=== PATIENT | female | born 1965 | race Caucasian/White ===

== ENCOUNTER 2017-08-05 09:33 | Emergency (ER) | payer OTHER ==
--- NOTE | 2017-08-05 11:51 | UC ---
Throat Pain/Nasal Bola HPI - HPI Summary HPI Summary: PT IS C/O A 2 WEEK HX SINUS CONGESTION AND EAR DRAINAGE. SHE STATES SIMILAR PROBLEM IN PAST AND HAS SEEN DR VELARDE. DENIES FEVER AND SORE THROAT. - History of Current Complaint Stated Complaint: BILATERAL EAR PAIN/SINUS Time Seen by Provider: 08/05/17 11:36 Hx Obtained From: Patient ?: No Onset/Duration: Gradual Onset, Still Present Severity: Moderate Associated Signs & Symptoms: Negative: Sinus Discomfort, Nasal Discharge, Fever - Epiglottits Risk Factors Epiglottis Risk Factors: Negative PMH/Surg Hx/FS Hx/Imm Hx - Additional Past Medical History Additional PMH: L ELBOW FX, SINUS/EAR INFECTIONS - Surgical History Surgical History: Yes - L ELBOW FX - Family History Known Family History: Positive: Cardiac Disease, Hypertension, Diabetes - Social History Occupation: Employed Full-time Lives: With Family Alcohol Use: Rare Substance Use Type: None Smoking Status (MU): Never Smoked Tobacco - Immunization History Vaccination Up to Date: Yes Review of Systems Constitutional: Negative Skin: Negative Eyes: Negative ENT: Ear Ache, Nasal Discharge, Sinus Congestion, Sinus Pain/Tenderness Respiratory: Negative Cardiovascular: Negative Gastrointestinal: Negative Genitourinary: Negative Motor: Negative Neurovascular: Negative Musculoskeletal: Negative Neurological: Negative Psychological: Negative Is Patient Immunocompromised?: No All Other Systems Reviewed And Are Negative: Yes Physical Exam Triage Information Reviewed: Yes Appearance: Well-Appearing Vital Signs Reviewed: Yes Eyes: Positive: Conjunctiva Clear ENT: Positive: Pharynx normal, Nasal congestion, Nasal drainage - YELLOW, TMs normal, Sinus tenderness, Other - R EAR CANAL WITH MILD ERYTHEMA AND CLEAR DRY DISCHARGE Neck: Positive: Supple, Nontender, No Lymphadenopathy Respiratory: Positive: Chest non-tender, Lungs clear, Normal breath sounds Cardiovascular: Positive: RRR, No Murmur, Pulses Normal Abdomen Description: Positive: Nontender, No Organomegaly Bowel Sounds: Positive: Present Musculoskeletal: Positive: ROM Intact Neurological: Positive: Alert Psychological: Positive: Age Appropriate Behavior Skin Exam: Normal Throat Pain/Nasal Course/Dx - Course Course Of Treatment: EXAM C/W SINUSITIS AND R OE. WITH TX PO AND TOPICAL ANTIBIOTIS. SINCE PT OF DR VELARDE FOR SAME IN PAST, WILL REFER BACK TO HIM PER PT REQUEST. - Differential Dx/Diagnosis Provider Diagnoses: R OE, SINUSITIS Discharge - Discharge Plan Condition: Stable Disposition: HOME Prescriptions: Amoxicillin/Clavulanate TAB* [Augmentin TAB 875*] 875 mg PO BID 7 Days #20 tab Neomyc/Polym/HC 1% OTIC SUSP* [Cortisporin Otic Susp 1%*] 4 drop RIGHT EAR TID 7 Days #1 btl Referrals: JASIEL Magaña [Primary Care Provider] - If Needed Dane Velarde MD [Medical Doctor] - 7 Days
[2017-08-05 11:59] VITALS: BP 119/91
== END 2017-08-05 12:10 | disposition home or self-care (01) ==
LOC: UCCORT 09:33
DX: H60.91 Unspecified otitis externa, right ear (principal); J32.9 Chronic sinusitis, unspecified
CPT/HCPCS: 99202; G0463

== ENCOUNTER 2018-03-18 20:59 | Emergency (ER) | payer OTHER ==
[2018-03-18 21:15] VITALS: BP 123/75
--- NOTE | 2018-03-18 21:48 | UC ---
Laceration HPI - HPI Summary HPI Summary: cut right middle finger on piece of glass, 1 cm lac. UTD on tetanus - History Of Current Complaint Chief Complaint: UCLaceration Stated Complaint: RIGHT HAND MIDDLE FINGER LAC Hx Obtained From: Patient Hx Last Menstrual Period: yrs Laceration Location: Finger Mechanism Of Injury: Sharp Trauma Onset/Duration: Sudden Onset Severity: Mild Pain Intensity: 0 Aggravating Factors: Nothing - Allergies/Home Medications Allergies/Adverse Reactions: Allergies Allergy/AdvReac Type Severity Reaction Status Date / Time No Known Allergies Allergy Verified 03/18/18 21:15 Home Medications: Home Medications L.acidoph,Paracasei, B.lactis [Probiotic] 1 each PO DAILY 03/18/18 [History Confirmed 03/18/18] Multivitamin [Multivitamins] 1 cap PO DAILY 03/18/18 [History Confirmed 03/18/18 ] PMH/Surg Hx/FS Hx/Imm Hx Previously Healthy: Yes - Surgical History Surgical History: Yes Surgery Procedure, Year, and Place: L hip/ L elbow - Family History Known Family History: Positive: Cardiac Disease, Hypertension, Diabetes - Social History Alcohol Use: Rare Substance Use Type: None Smoking Status (MU): Never Smoked Tobacco - Immunization History Most Recent Tetanus Shot: 02/2018 Vaccination Up to Date: Yes Review of Systems Constitutional: Negative Skin: Rash - allergic reaction, Other - wound Eyes: Negative ENT: Negative Respiratory: Negative Cardiovascular: Negative Gastrointestinal: Negative Genitourinary: Negative Motor: Negative Neurovascular: Negative Musculoskeletal: Negative Neurological: Negative Psychological: Negative Is Patient Immunocompromised?: No All Other Systems Reviewed And Are Negative: Yes Physical Exam Triage Information Reviewed: Yes Appearance: Well-Nourished, Ill-Appearing, Pain Distress Vital Signs: Initial Vital Signs Temp 97.4 F 03/18/18 21:10 Pulse 90 03/18/18 21:10 Resp 17 03/18/18 21:10 BP 123/75 03/18/18 21:10 Pulse Ox 98 03/18/18 21:10 Vital Signs Reviewed: Yes Eye Exam: Normal ENT Exam: Normal Dental Exam: Normal Neck exam: Normal Neck: Positive: Supple, Nontender, No Lymphadenopathy Respiratory Exam: Normal Respiratory: Positive: Chest non-tender, Lungs clear, Normal breath sounds Cardiovascular Exam: Normal Cardiovascular: Positive: RRR, No Murmur, Pulses Normal Musculoskeletal Exam: Normal Neurological Exam: Normal Neurological: Positive: Alert Psychological Exam: Normal Skin: Positive: rashes - being treated for an allergic reaction o nher face 1 cm simple laceration to right mid finger Laceration Repair - Laceration Repair 1 Description: Linear Laceration Size After Repair: Length (cm) - 1 Modified For Repair: No Cleansing Completed Via Routine Prep: Yes Irrigation With Pressure Irrigation Device: No Closure Material: Sutures Closure Method: Single Layer Laceration Course/Dx - Course/Dx Course Of Treatment: hx obtained, exam performed, meds reviewed, repair of laceration performed, - Differential Dx - Laceration/Wound Differental Diagnoses: Laceration Provider Diagnoses: 1 cm simple laceration of right middle finger Discharge - Sign-Out/Discharge Documenting (check all that apply): Patient Departure All imaging exams completed and their final reports reviewed: No Studies - Discharge Plan Condition: Stable Disposition: HOME Patient Education Materials: Laceration (ED), Care For Your Stitches (DC) Referrals: JASIEL Magaña [Primary Care Provider] - Additional Instructions: 1. Keep finger clean and dry. 2. Watch for signs of infection, redness, swelling, pain drainage from wound, follow up if these present 3. Remove the stitches in 7-10 days. - Billing Disposition and Condition Condition: STABLE Disposition: Home
== END 2018-03-18 21:48 | disposition home or self-care (01) ==
LOC: UCCORT 20:59
DX: S61.212A Laceration without foreign body of right middle finger without damage to nail, initial encounter (principal); W25.XXXA Contact with sharp glass, initial encounter; Y92.9 Unspecified place or not applicable
CPT/HCPCS: 12001; 99201; G0463

== ENCOUNTER 2018-03-27 11:36 | Inpatient (IN) | payer OTHER ==
[2018-03-27] MEDS ORDERED: Ondansetron INJ* 2 MG/ML VIAL ONE (15:05)
[2018-03-27] MEDS ORDERED: Albuterol 2.5 MG/3 ML NEB.SOL* (0.083%) INH PRN (15:08)
[2018-03-27] MEDS ORDERED: Al Hydrox/Mg Hydrox/Simet LIQ* 30 ML UDC PO PRN (15:08)
[2018-03-27] MEDS ORDERED: oxyCODONE/Acetamin 5/325 MG* TAB PO PRN (15:08)
--- NOTE | 2018-03-27 16:32 | RAD ---
INDICATION: Palpitations. Single frontal view of the chest performed at 1525 hours was reviewed. No prior study is available for comparison. No mediastinal shift is noted. Heart is of normal size and configuration. Lung rivera appear clear. IMPRESSION: NO ACTIVE CARDIOPULMONARY DISEASE IS NOTED.
[2018-03-27] MEDS ORDERED: PROCHLORPERAZINE INJ 5 MG/ML 2 ML VIAL IV ONE (17:22)
--- NOTE | 2018-03-27 22:14 | CONS ---
CONSULTATION REPORT: DATE OF CONSULT: 03/27/18 ATTENDING ORTHOPEDIC PROVIDER: Dr. Wili Stinson. CHIEF COMPLAINT: Left distal femur fracture. HISTORY OF PRESENT ILLNESS: The patient is a 52-year-old female, who presented to [facility] yesterday, 03/26/18, after sustaining a fall at home. She has no past medical history to speak of. She takes no home medication. She states that she was mopping her home around 10:30 p.m. when she slipped on the floor, who subsequently fell onto her left leg twisting underneath of her. She immediately had severe pain and was unable to ambulate. She did not suffer any other injury. She had no chest pain, shortness of breath, dizziness, loss of consciousness with her fall. She was brought into [facility] where she was diagnosed with a left distal femur fracture. She was transferred to [facility] today, 03/27/18, for anticipated surgical fixation with Dr. Wili Stinson tomorrow. She has no history of heart attack, stroke, blood clot, HIV, hepatitis. She has had general anesthesia before, which she has tolerated well. PAST MEDICAL HISTORY: None. PAST SURGICAL HISTORY: Left elbow surgery after fracture, sounds like ORIF. MEDICATIONS: No prescription medications, but does take vitamins, which she will be providing a list of to our hospitalist service. ALLERGIES: No known drug allergies. 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 She drinks 1 to 2 glasses of wine per day. She does not smoke cigarettes. She does not use drugs. REVIEW OF SYSTEMS: General: Negative for fever, chills, or recent illness. HEENT: No head trauma. Negative for change in vision or headache. Cardio: No irregular heartbeats. No chest pain. No history of UT. Respiratory: No shortness of breath or cough. No history of asthma, COPD, or MANA. Abdomen: No abdominal pain, vomiting, diarrhea, or nausea. : No dysuria. Musculoskeletal: Positive for left lower extremity pain with known distal femur fracture. Does have a history of right humerus fracture and left elbow fracture , both after sustaining falls. Neuro: Sensation is intact throughout all extremities without any numbness or paresthesias. No known head trauma. Heme: No history of blood clot. Skin: No rashes, lesions, or skin lacerations. PHYSICAL EXAM: Vital Signs: Temperature 97.9, pulse 75, respiratory rate 18, oxygen saturation 96%, blood pressure 137/83. General: Well appearing, in no acute distress. She is alert and oriented to person, place, and time. HEENT: Normocephalic, atraumatic. Extraocular movements intact. Moist mucous membranes. Cardiac: S1, S2. Regular rate and rhythm. Respiratory: Clear to auscultation bilaterally without wheezes, rales, or rhonchi. Abdomen: Bowel sounds normoactive in all 4 quadrants. Nontender to palpation. No guarding. No rigidity. Upper Extremities: Skin envelope intact. No obvious deformities. Nontender to palpation. Active flexion and extension of the digits, wrists, and elbows without associated pain. Shoulders with nonpainful active forward flexion and abduction. Left Lower Extremity: Skin envelope is intact. There is no obvious deformity. She is wearing a knee immobilizer. She is able to flex and extend at the ankle as well as at the toes. Due to pain, she is unable to range knee and hip. Logroll at hip is negative. No tenderness over the hip. Right Lower Extremity: Skin envelope is intact. No obvious deformity. Able to flex and extend digits, ankle, knee, and hip. No tenderness to palpation. Neuro: Sensation is intact to light touch throughout the left lower extremity. Skin: Skin envelope intact. No lacerations. No area of obvious hematoma. DIAGNOSTIC STUDIES/LAB DATA: X-ray and CT scan were sent from [facility] , which needed to be uploaded into the patient's chart. Also awaiting lab studies from [facility] to be uploaded into the chart. IMPRESSION: Left distal femur fracture. PLAN/RECOMMENDATIONS: The patient will have a chest x-ray and an EKG done preoperatively. She is admitted to our hospitalist service to optimize her for surgery. She has no known past medical problems and I do not anticipate that there will be any further workup needed. She will go to the OR tomorrow for ORIF left distal femur fracture with Dr. Stinson, which she is aware of and agreeable to. She will need to stop any anticoagulation at midnight, 03/27/18, and she will need to be n.p.o. after midnight, 03/27/18, as well. ELVIRA PAULA, [place] [id number]/[facility] #: [id number] [facility]OSPITALSarah
[2018-03-28] MEDS: Ondansetron INJ* 2 MG/ML VIAL IV PRN ×3 (01:19→18:53)
[2018-03-28] MEDS: Morphine INJ* 4 MG/ML 1 ML SYRINGE (NEW SYRINGE VERSION) IV PRN ×2 (01:33→10:32)
--- NOTE | 2018-03-28 03:52 | HP ---
AMENDED REPORT NOW INCLUDES DESIGNATED COSIGNER CC: Dr. Stinson * ADMISSION HISTORY AND PHYSICAL: DATE OF ADMISSION: 03/27/18 PATIENT OF ADMITTING HOSPITALIST: Dr. Megan Saini.* (DICTATED BY MERARI POOLE) PRIMARY CARE PROVIDER: "Dr. Akira Wilks" in [place]. CONSULTING ORTHOPEDIC SURGEON: Dr. Wili Stinson. CHIEF COMPLAINT: Left leg pain. HISTORY OF PRESENT ILLNESS: Mrs. Post is a 52-year-old female with no significant past medical history, who was transferred to [facility] from [facility] after she sustained left femur fracture earlier today. The patient apparently was at home cleaning the house and she was mopping the floor when she stepped from wet floor to dry area and accidentally lost her balance and fell in awkward position with her left leg twisted. She denied any head injury or any hip pain; however, she noticed immediate left knee and leg pain and was unable to get up and ambulate since then. She was brought to [facility] and had initial x-rays that showed distal left femur fracture , for which she was evaluated to consider surgical repair. The patient also had a CT scan of the left lower extremity that was consistent with distal femur fracture as well as lipohemarthrosis noted. There was good alignment of the bone with no evidence of any displacement. Given the complexity of the fracture , it was thought that the patient needed to be transferred to a higher level of care, for which orthopedic services at [place] contacted Dr. Stinson at [facility], who reviewed x-rays and accepted the patient's transfer. She was eventually sent to [facility] and she was in the process of being admitted in anticipation for surgery, likely tomorrow. She presented today and had some nausea related to morphine dose she was given at [place] that was relieved using a dose of Zofran upon admission. She denied any chest pain, any other bony injury or tenderness. Her left knee was stabilized with a knee immobilizer and she denied any other significant symptoms. Given her left femur fracture, we were asked to see the patient for admission under hospitalist services and evaluation, medical clearance in anticipation for surgery tomorrow. PAST MEDICAL HISTORY: Essentially unremarkable. She does report history of anorexia nervosa in the remote past, but has been doing very well lately and she does not take any medication for that. She denies any history of lung, liver, heart, or kidney disease. PAST SURGICAL HISTORY: Significant for left elbow surgery with apparent bone graft. CURRENT MEDICATIONS: She takes only multivitamins and probiotics at home. ALLERGIES: She has no known drug allergies. FAMILY HISTORY: Reviewed and noncontributory. 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 She is a , lives with her daughter and 2 grandkids. She listed her neighbor as the healthcare proxy and she wishes to be full code. REVIEW OF SYSTEMS: See HPI. Otherwise, 14 points review of systems were examined and they were essentially negative. PHYSICAL EXAMINATION GENERAL: She is a pleasant, healthy-appearing, middle-aged female, in no acute distress or discomfort at the time of admission. VITAL SIGNS: There were no vital signs available since the patient is being admitted at the moment; however, we will recheck her vitals and monitor her per protocol. HEENT: Head is normocephalic, atraumatic. Sclerae anicteric. PERRLA. EOMs intact. Oropharynx is pink and moist. NECK: Supple. Trachea midline. No cervical adenopathy or thyromegaly. LUNGS: Clear to auscultation bilaterally. HEART: Regular rate and rhythm. Normal S1 and S2 without rubs, murmurs, or gallops. BREASTS: Exam deferred at this time. ABDOMEN: Soft, nontender, and nondistended. No hernias, masses, or hepatosplenomegaly. BACK: With normal curvature and no CVA tenderness. EXTREMITIES: Without cyanosis, clubbing, or edema. Left knee was secured in a knee immobilizer. There is no patellar tenderness on exam. There is no visible ecchymosis or swelling in the thigh or lower leg. Both hips were examined. There is no ecchymosis or tenderness on exam. NEUROLOGIC: She is awake, alert, and oriented x3. Tongue is midline. Handgrip is equal bilaterally and sensation is intact throughout. RECTAL: Exam deferred at this time. LABORATORY WORKUP: CBC, BMP, and magnesium were all ordered and results are pending at this time. IMPRESSION: A 52-year-old female with no significant past medical history, who sustained a mechanical fall at home and suffered left distal femur fracture, will be admitted under hospitalist services for the following. ASSESSMENT AND PLAN: 1. Left femur fracture. The case was discussed with Dr. Stinson, who will come later today and assess the patient as well. He recommended keeping her n.p.o. after midnight in anticipation for surgery tomorrow. Her pain seems to be well controlled at this point and I will continue giving her morphine as needed as well as oral Percocet with Zofran to control her nausea. I will also get an EKG and portable chest x-ray despite the fact that she does not have any past medical history, but given her age, I will order any necessary studies for preoperative clearance. Based on her medical history, she appears to be a low risk to proceed with surgery and we will follow her up accordingly. 2. History of anorexia nervosa. Appears to be well controlled and the patient has no current symptoms. Her weight and health status appear to be within normal and again, we will continue to monitor her. 3. DVT prophylaxis: She is at moderate risk and I will utilize SCDs for the time being since she will likely go to surgery tomorrow. 4. Code status: She wishes to be a full code. 5. Disposition: Admit under hospitalist services with Orthopedic consultation in progress for left distal femur fracture, anticipate surgery tomorrow, likely to be in the hospital for a couple of days postoperatively awaiting PT evaluation and discharge planning. TIME SPENT: Approximately 60 minutes were spent admitting this patient, for which greater than 50% of that time on taking history and performing physical exam. I went on and discussed the case with my attending, who agreed to plan of care and will follow her up accordingly. MERARI POOLE [id number]/[facility] #: [id number] ROXANA
[2018-03-28 05:18] LABS: ABS Basophils 0.1 10^3/ul (0-0.2); ABS Eosinophils 0 10^3/ul (0-0.6); ABS Lymphocytes 1.1 10^3/ul (1.0-4.8); ABS Monocytes 0.6 10^3/ul (0-0.8); ABS Neutrophils 4.7 10^3/ul (1.5-7.7); ABS Nucleated RBC 0 10^3/ul; Eosinophil % 0.6 % (0-6); Hematocrit 31 % (35-47); Hemoglobin 10.7 g/dl (12.0-16.0); Lymphocyte % 16.9 % (25-47); Mean Corpuscular HGB Conc 35 g/dl (31-36); Mean Corpuscular Hemoglobin 33 pg (27-31); Mean Corpuscular Volume 96 fL (80-97); Mean Platelet Volume 9.8 um3 (7.4-10.4); Nucleated Red Blood Cells % 0.1; Platelet Count 107 10^3/ul (150-450); Red Blood Count 3.22 10^6/ul (4.00-5.40); Red Cell Distribution Width 14 % (10.5-15); White Blood Count 6.5 10^3/ul (3.5-10.8)
[2018-03-28 05:27] LABS: INR 1.4 (0.77-1.02)
[2018-03-28] MEDS ORDERED: KCL 10 MEQ/50 ML IVPREMIX* 10 MEQ/50 ML BAG IV ONE (07:22)
[2018-03-28] MEDS ORDERED: Magnesium Sulf 4 GM/100 ML IV* 4,000 MG/100 ML BAG IVPB ONE ×2 (08:00)
--- NOTE | 2018-03-28 09:28 | PN ---
Subjective Date of Service: 03/28/18 Interval History: Ms. Grubbs reports feeling about the same as yesterday, but feels as though her pain is improved. She rates it a 6/10 on exam. She reports that she became itchy last night after taking percocet, but did not experience any hives or difficulty breathing. She denies CP, SOB, N/V/D, dizziness. She is agreeable to surgery today. Family History: Unchanged from Admission Social History: Unchanged from Admission Past Medical History: Unchanged from Admission Objective Active Medications: Acetaminophen (Tylenol Tab*) 650 mg PO Q4H PRN Al Hydrox/Mg Hydrox/Simethicone (Maalox Plus*) 30 ml PO Q6H PRN Albuterol (Ventolin 2.5 Mg/3 Ml Neb.Anastasia*) 2.5 mg INH [id number] AWAKE PRN Lactated Ringer's (Lactated Ringers 1000 Ml Bag*) 1,000 mls @ 125 mls/hr IV PER RATE MARIA FERNANDA Magnesium Sulfate (Magnesium Sulf 4 Gm/100 Ml Iv*) 4,000 mg in 100 mls @ 33.333 mls/hr IVPB ONCE ONE Morphine Sulfate (Morphine Inj (Syringe)*) 2 mg IV Q1H PRN Ondansetron HCl (Zofran Inj*) 4 mg IV Q4H PRN Oxycodone/Acetaminophen (Percocet 5/325 Tab*) 1 tab PO Q4H PRN Vital Signs - 8 hr 03/28/18 03/28/18 03/28/18 01:33 02:33 03:50 Temperature 98.9 F Pulse Rate 85 Respiratory 20 18 16 Rate Blood Pressure 126/70 (mmHg) O2 Sat by Pulse 96 Oximetry 03/28/18 07:35 Temperature 98.2 F Pulse Rate 80 Respiratory 16 Rate Blood Pressure 126/74 (mmHg) O2 Sat by Pulse 96 Oximetry Oxygen Devices in Use Now: None Appearance: Middle-aged female laying in bed in NAD Eyes: No Scleral Icterus Ears/Nose/Mouth/Throat: NL Teeth, Lips, Gums, Mucous Membranes Moist Neck: NL Appearance and Movements; NL JVP, Trachea Midline Respiratory: Symmetrical Chest Expansion and Respiratory Effort, Clear to Auscultation Cardiovascular: NL Sounds; No Murmurs; No JVD, RRR, No Edema Abdominal: NL Sounds; No Tenderness; No Distention, No Hepatosplenomegaly Extremities: No Clubbing, Cyanosis Skin: No Rash or Ulcers Neurological: Alert and Oriented x 3, NL Sensation Lines/Tubes/Other Access: Clean, Dry and Intact Peripheral IV Nutrition: - - NPO for surgery Result Diagrams: 03/28/18 04:58 03/28/18 04:58 Assess/Plan/Problems-Billing Assessment: Ms. Grubbs is a 52yo with no significant PMH who presented initially to [facility] after sustaining a mechanical fall, was found to have a femur fracture, and was subsequently transferred to [facility] d/t the complexity of the fracture; now scheduled for surgery today. - Patient Problems (1) Fracture of femur, distal, left, closed Current Visit: Yes Status: Acute Priority: High Code(s): S72.402A - UNSP FRACTURE OF LOWER END OF LEFT FEMUR, INIT FOR CLOS FX SNOMED Code(s): 378101088 Comment: - Management per ortho - According to the Revised Cardiac Risk Index, the patient has a score of 0 points indicating an 0.4% risk of major cardiac event. The patients METS score is 9.89. EKG personally reviewed shows NSR with a rate of 78. No acute EKG changes. She does not require any further cardiac workup. The patient has been medically optimized for orthopedic surgery today with Dr. Stinson. (2) Hypomagnesemia Current Visit: Yes Status: Acute Priority: High Code(s): E83.42 - HYPOMAGNESEMIA SNOMED Code(s): 742965129 Comment: - Replete 4g mag sulfate today - Recheck serum mag later today, will replete more if necessary (3) Full code status Current Visit: Yes Status: Acute Priority: High Code(s): Z78.9 - OTHER SPECIFIED HEALTH STATUS SNOMED Code(s): 644301988 (4) DVT prophylaxis Current Visit: Yes Status: Acute Priority: High Code(s): ATD8187 - SNOMED Code(s): 709176678 Comment: - SCDs Status and Disposition: Inpatient. Planned surgery today.
[2018-03-28] MEDS ORDERED: Buffered Lidocaine 0.9% SYRIN* 5 ML/SYR SYRINGE INTRADERM ONE (11:17)
[2018-03-28] MEDS ORDERED: Famotidine IV* 10 MG/ML 2 ML (20 mg) IV ONE (11:17)
[2018-03-28] MEDS ORDERED: Dexamethasone IV* 4 MG/ML 1 ML (4 MG) IV SLOW PU ONE (11:17)
[2018-03-28] MEDS ORDERED: Morphine VIAL* 10 MG/ML 1 ML VIAL ONE ×2 (11:22→11:50)
[2018-03-28] MEDS ORDERED: Famotidine IV* 10 MG/ML 2 ML (20 mg) ONE (11:22)
[2018-03-28] MEDS ORDERED: Dexamethasone IV* 4 MG/ML 1 ML (4 MG) ONE (11:22)
[2018-03-28] MEDS ORDERED: ceFAZolin 2 GM PREMIX in ORs 2 GM/50 ML BAG IVPB ONE (13:20)
[2018-03-28] MEDS ORDERED: EPINEPHRINE 1 MG/ML 1 ML VIAL ONE (13:28)
[2018-03-28] MEDS ORDERED: Bupivacaine 0.25% W/EPI* 10 ML SDV ONE (13:28)
--- NOTE | 2018-03-28 13:32 | PN ---
Progress Note - Progress Note Date of Service: 03/28/18 SOAP: Subjective: Complains of left knee pain. In knee immobilizer. Optimized by Hospitalist. Objective: LLE: - mild swelling left knee - wrinkling about medial/anterior/lateral knee - nvid Selected Entries 03/28/18 11:13 Temperature 98.2 F Pulse Rate 85 Respiratory 16 Rate Blood Pressure 126/72 (mmHg) O2 Sat by Pulse 97 Oximetry Laboratory Tests 03/28/18 04:[address]- displaced lateral condyle fracture, low/distal, that extends into medial condyle. displaced at least 3mm intra-articular Assessment: HD 2 left distal femur lateral condyle fracture, displaced Plan: - Has been NPO p midnight - To OR for ARIF/ORIF left distal femur fracture - Clarification that this is a lateral condyle and not medial condyle fracture
[2018-03-28] MEDS ORDERED: fentaNYL* 50 MCG/ML 5 ML VIAL (250 MCG VIAL) ONE (13:46)
[2018-03-28] MEDS ORDERED: Atracurium* 10 MG/ML 10 ML VIAL ONE (13:46)
[2018-03-28] MEDS ORDERED: Propofol* 10 MG/ML 20 ML BTL IV PUSH ONE (13:46)
[2018-03-28] MEDS ORDERED: Ketorolac INJ* 30 MG/ML 1 ML VIAL ONE (13:46)
[2018-03-28] MEDS ORDERED: Ondansetron INJ* 2 MG/ML VIAL ONE (13:46)
[2018-03-28] MEDS ORDERED: Midazolam* 1 MG/ML 5 ML VIAL (5 MG) ONE (13:46)
[2018-03-28] MEDS ORDERED: ROPIVACAINE 5 MG/ML 30 ML BTL (0.5%) ONE (13:55)
[2018-03-28] MEDS ORDERED: oxyCODONE/Acetamin 5/325 MG* TAB PO PRN ×3 (15:08→17:37)
[2018-03-28] MEDS ORDERED: DiMENhydriNATE IV* 50 MG/ML VIAL IV PUSH PRN (15:08)
[2018-03-28] MEDS ORDERED: Naloxone* 0.4 MG/ML 1 ML VIAL IV PRN (15:08)
[2018-03-28] MEDS ORDERED: Ondansetron INJ* 2 MG/ML VIAL IV PRN ×2 (15:08→17:37)
[2018-03-28] MEDS ORDERED: HYDROmorphone INJ1* 1 MG/ML SYRINGE IV PRN (15:08)
[2018-03-28] MEDS ORDERED: fentaNYL* 50 MCG/ML 2 ML VIAL (100 MCG VIAL) IV PRN (15:08)
[2018-03-28] MEDS ORDERED: fentaNYL* 50 MCG/ML 2 ML VIAL (100 MCG VIAL) ONE ×2 (15:10→16:23)
[2018-03-28] MEDS ORDERED: Metoprolol Tartrate IV* 1 MG/ML 5 ML VIAL ONE (16:22)
[2018-03-28] MEDS ORDERED: diPHENhydraMINE IV* 50 MG/ML 1 ml VIAL (BENADRYL) IV PRN (17:37)
[2018-03-28] MEDS ORDERED: Morphine VIAL* 4 MG/ML VIAL (1 ml vial) IV PRN (17:37)
[2018-03-28] MEDS ORDERED: Cyclobenzaprine TAB* 10 MG PO PRN (17:37)
[2018-03-28] MEDS ORDERED: oxyCODONE TAB* 5 MG TAB PO PRN (17:37)
[2018-03-28] MEDS ORDERED: Magnesium Hydroxide LIQ* 30 ML UDC PO PRN (17:37)
[2018-03-28] MEDS ORDERED: Bisacodyl SUPP* 10 MG SUPP PR PRN (17:37)
[2018-03-28] MEDS: Docusate CAP* 100 MG PO SCH (21:50)
[2018-03-28] MEDS: ceFAZolin 1 GM in Dextrose (*) 1 GM/50 ML BAG IVPB SCH (22:06)
[2018-03-28] MEDS: Magnesium Hydroxide LIQ* 30 ML UDC PO SCH (23:06)
[2018-03-29] MEDS: ceFAZolin 1 GM in Dextrose (*) 1 GM/50 ML BAG IVPB SCH ×3 (05:59→23:14)
[2018-03-29 06:15] LABS: Hematocrit 28 % (35-47); Hemoglobin 9.6 g/dl (12.0-16.0); Mean Platelet Volume 9.8 um3 (7.4-10.4); Platelet Count 113 10^3/ul (150-450)
[2018-03-29 06:33] LABS: EGFR Non-African American 92.4 (>60)
--- NOTE | 2018-03-29 07:41 | RAD ---
CPT II Codes: G9500 INDICATION: Left distal femur fracture TECHNIQUE: Intraoperative fluoroscopy was provided during plate and screw ORIF of fractured distal left femur. FINDINGS: 14 spot films depict instillation of a distal left femur plate and screw fixator along the lateral aspect of the distal femur. Fluoroscopy time: 23.5 seconds IMPRESSION: As above.
[2018-03-29] MEDS: Acetaminophen TAB* 325 MG PO PRN ×3 (08:33→21:14)
[2018-03-29] MEDS: Vitamin THERAPEUTIC TAB PO SCH (08:33)
[2018-03-29] MEDS: Docusate CAP* 100 MG PO SCH ×2 (08:33→21:13)
[2018-03-29] MEDS: Magnesium Hydroxide LIQ* 30 ML UDC PO SCH ×2 (08:33→21:08)
[2018-03-29] MEDS: Enoxaparin(*) 40 MG/0.4 ML SYR SUBCUT SCH (12:07)
--- NOTE | 2018-03-29 12:43 | PN ---
Subjective Date of Service: 03/29/18 Interval History: Patient had no pain in her leg after the surgery until she moved around with PT/ OT and feels like her brace is not in the correct place. Patient denies F/C, N/V , abdominal pain, diarrhea, constipation, CP, SOB, dizziness, palpitations, or other pain. Patient feels she would not do well with NWB status on right leg at home. Family History: Unchanged from Admission Social History: Unchanged from Admission Past Medical History: Unchanged from Admission Objective Active Medications: Acetaminophen (Tylenol Tab*) 650 mg PO Q4H PRN PRN Reason: FEVER/PAIN Last Admin: 03/29/18 08:33 Dose: 650 mg Al Hydrox/Mg Hydrox/Simethicone (Maalox Plus*) 30 ml PO Q6H PRN PRN Reason: INDIGESTION Albuterol (Ventolin 2.5 Mg/3 Ml Neb.Anastasia*) 2.5 mg INH RT.K4AB-PNACL AWAKE PRN PRN Reason: sob/wheezing Bisacodyl (Dulcolax Supp*) 10 mg IL DAILY PRN PRN Reason: constipation Cyclobenzaprine HCl (Flexeril Tab*) 5 mg PO TID PRN PRN Reason: SPASMS Diphenhydramine HCl (Benadryl Iv*) 25 mg IV Q6H PRN PRN Reason: itching Docusate Sodium (Colace Cap*) 100 mg PO BID [facility] Last Admin: 03/29/18 08:33 Dose: 100 mg Enoxaparin Sodium (Lovenox(*)) 40 mg SUBCUT Q24H [facility] Last Admin: 03/29/18 12:07 Dose: 40 mg Lactated Ringer's (Lactated Ringers 1000 Ml Bag*) 1,000 mls @ 125 mls/hr IV PER RATE [facility] Last Admin: 03/28/18 11:42 Dose: 125 mls/hr Lactated Ringer's (Lactated Ringers 1000 Ml Bag*) 1,000 mls @ 125 mls/hr IV PER RATE [facility] Cefazolin Sodium/Dextrose (Kefzol 1 Gm In Dextrose Duplex (*)) 1 gm in 50 mls @ 200 mls/hr IVPB Q8H [facility] Stop: 03/30/18 14:44 Last Admin: 03/29/18 05:59 Dose: 200 mls/hr Lactated Ringer's (Lactated Ringers 1000 Ml Bag*) 1,000 mls @ 100 mls/hr IV PER RATE [facility] Last Admin: 03/29/18 06:01 Dose: 100 mls/hr Lactulose (Lactulose*) 30 ml PO BID [facility] Last Admin: 03/29/18 08:33 Dose: 30 ml Magnesium Hydroxide (Milk Of Magnesia Liq*) 30 ml PO BID [facility] Last Admin: 03/29/18 08:33 Dose: 30 ml Magnesium Hydroxide (Milk Of Magnesia Liq*) 30 ml PO Q6H PRN PRN Reason: constipation Morphine Sulfate (Morphine Inj (Syringe)*) 2 mg IV Q1H PRN PRN Reason: PAIN Last Admin: 03/28/18 10:32 Dose: 2 mg Morphine Sulfate (Morphine Vial*) 2 mg IV Q2H PRN PRN Reason: PAIN - SEVERE Multivitamins (Theragran Tab*) 1 tab PO DAILY [facility] Last Admin: 03/29/18 08:33 Dose: 1 tab Ondansetron HCl (Zofran Inj*) 4 mg IV Q4H PRN PRN Reason: NAUSEA/VOMITING Last Admin: 03/28/18 18:53 Dose: 4 mg Ondansetron HCl (Zofran Inj*) 4 mg IV Q6H PRN PRN Reason: nausea Oxycodone HCl (Roxycodone Tab*) 10 mg PO Q4H PRN PRN Reason: PAIN - SEVERE Oxycodone/Acetaminophen (Percocet 5/325 Tab*) 1 tab PO Q4H PRN PRN Reason: Pain Last Admin: 03/27/18 22:50 Dose: 1 tab Oxycodone/Acetaminophen (Percocet 5/325 Tab*) 1 tab PO Q4H PRN PRN Reason: PAIN Oxycodone/Acetaminophen (Percocet 5/325 Tab*) 2 tab PO Q4H PRN PRN Reason: PAIN Vital Signs - 8 hr 03/29/18 03/29/18 03/29/18 05:02 07:54 08:00 Temperature 99.0 F 99.0 F Pulse Rate 90 101 Respiratory 16 16 16 Rate Blood Pressure 135/82 120/84 (mmHg) O2 Sat by Pulse 97 100 100 Oximetry 03/29/18 11:24 Temperature 99.0 F Pulse Rate 95 Respiratory 16 Rate Blood Pressure 116/69 (mmHg) O2 Sat by Pulse 99 Oximetry Oxygen Devices in Use Now: None Appearance: Patient is a 52yo female who appears stated age and is sitting in the bed in NAD. Eyes: No Scleral Icterus, PERRLA Ears/Nose/Mouth/Throat: NL Teeth, Lips, Gums, Clear Oropharnyx, Mucous Membranes Moist Neck: NL Appearance and Movements; NL JVP, Trachea Midline Respiratory: Symmetrical Chest Expansion and Respiratory Effort, Clear to Auscultation Cardiovascular: NL Sounds; No Murmurs; No JVD, RRR, No Edema Abdominal: NL Sounds; No Tenderness; No Distention, No Hepatosplenomegaly Lymphatic: No Cervical Adenopathy Extremities: No Edema, No Clubbing, Cyanosis Skin: No Nodules or Sclerosis, - - Left leg in bulky dressing. Neurological: Alert and Oriented x 3, NL Sensation, NL Muscle Strength and Tone , - - CN II-XII intact. Result Diagrams: 03/29/18 05:48 03/29/18 05:48 Assess/Plan/Problems-Billing Assessment: Ms. Grubbs is a 52yo with no significant PMH who presented initially to [facility] after sustaining a mechanical fall, was found to have a femur fracture, and was subsequently transferred to [facility] d/t the complexity of the fracture. Patient is now POD #1 and is doing well. - Patient Problems (1) Fracture of femur, distal, left, closed Current Visit: Yes Status: Acute Priority: High Code(s): S72.402A - UNSP FRACTURE OF LOWER END OF LEFT FEMUR, INIT FOR CLOS FX SNOMED Code(s): 985687385 Comment: - Management per ortho - POD #1 - Toe Touch, Pain Control, PT/OT - May need rehab (2) Hypomagnesemia Current Visit: Yes Status: Acute Priority: High Code(s): E83.42 - HYPOMAGNESEMIA SNOMED Code(s): 317218094 Comment: - Improved with repletion. (3) History of anorexia nervosa Current Visit: Yes Status: Chronic Priority: Low Code(s): Z86.59 - PERSONAL HISTORY OF OTHER MENTAL AND BEHAVIORAL DISORDERS SNOMED Code(s): 562631384 Comment: - Possibly predisposes to low bone density. (4) DVT prophylaxis Current Visit: Yes Status: Acute Priority: High Code(s): APV6330 - SNOMED Code(s): 607139694 Comment: - SCDs - Lovenox per ortho. (5) Full code status Current Visit: Yes Status: Acute Priority: High Code(s): Z78.9 - OTHER SPECIFIED HEALTH STATUS SNOMED Code(s): 047077223 Status and Disposition: Inpatient. Planned surgery today.
--- NOTE | 2018-03-29 14:27 | PN ---
Progress Note - Progress Note Date of Service: 03/29/18 SOAP: Subjective: []Patient seen and examined at bedside. She is feeling well without any complaints today. Pain is well controlled at rest. Denies CP, SOB, dizziness, nausea or leg numbness. Objective: []General: Well appearing, NAD LLE: Immobilizer in place locked in extension. Sensation intact distally, DF/PF intact. Dp2+. Calves are supple and nontender without erythema, edema or palpable cords Assessment: []POD 1 s/p ORIF left distal femur lateral condyle fracture, displaced Plan: []lovenox 40 mg sq qd x 30 days NWB LLE, october TTWB for transfers PT/OT PMRU referral in Patient had expressed calf pain to PT, for which I did reevaluate patient. She no longer has calf pain and states the sensation was positional and resolved with adjustment of brace and position in bed. Vital Signs Temp 99.0 F 03/29/18 11:24 Pulse 95 03/29/18 11:24 Resp 16 03/29/18 11:24 BP 116/69 03/29/18 11:24 Pulse Ox 99 03/29/18 11:24 Intake & Output 03/28/18 03/29/18 03/29/18 18:59 06:59 18:59 Intake Total 2680 1520 Output Total 500 1100 400 Balance 2180 420 -400 Intake: IV Fluids 2680 LR 2680 Oral 1520 Output: Urine 500 1100 400 Laboratory Last Values WBC 6.5 10^3/ul (3.5-10.8) 03/28/18 04:58 RBC 3.22 10^6/ul (4.00-5.40) L 03/28/18 04:58 Hgb 9.6 g/dl (12.0-16.0) L 03/29/18 05:48 Hct 28 % (35-47) L 03/29/18 05:48 MCV 96 fL (80-97) 03/28/18 04:58 MCH 33 pg (27-31) H 03/28/18 04:58 MCHC 35 g/dl (31-36) 03/28/18 04:58 RDW 14 % (10.5-15) 03/28/18 04:58 Plt Count 113 10^3/ul (150-450) L 03/29/18 05:48 MPV 9.8 um3 (7.4-10.4) 03/29/18 05:48 Neut % (Auto) 72.4 % (38-83) 03/28/18 04:58 Lymph % (Auto) 16.9 % (25-47) L 03/28/18 04:58 [place] % (Auto) 9.2 % (0-7) H 03/28/18 04:58 Eos % (Auto) 0.6 % (0-6) 03/28/18 04:58 Baso % (Auto) 0.9 % (0-2) 03/28/18 04:58 Absolute Neuts (auto) 4.7 10^3/ul (1.5-7.7) 03/28/18 04:58 Absolute Lymphs (auto) 1.1 10^3/ul (1.0-4.8) 03/28/18 04:58 Absolute Monos (auto) 0.6 10^3/ul (0-0.8) 03/28/18 04:58 Absolute Eos (auto) 0 10^3/ul (0-0.6) 03/28/18 04:58 Absolute Basos (auto) 0.1 10^3/ul (0-0.2) 03/28/18 04:58 Absolute Nucleated RBC 0 10^3/ul 03/28/18 04:58 Nucleated RBC % 0.1 03/28/18 04:58 INR (Anticoag Therapy) 1.40 (0.77-1.02) H 03/28/18 04:58 Sodium 137 mmol/L (135-145) 03/29/18 05:48 Potassium 3.6 mmol/L (3.5-5.0) 03/29/18 05:48 Chloride 106 mmol/L (101-111) 03/29/18 05:48 Carbon Dioxide 25 mmol/L (22-32) 03/29/18 05:48 Anion Gap 6 mmol/L (2-11) 03/29/18 05:48 BUN 6 mg/dL (6-24) 03/29/18 05:48 Creatinine 0.67 mg/dL (0.51-0.95) 03/29/18 05:48 Est GFR ( Amer) 111.8 (>60) 03/29/18 05:48 Est GFR (Non-Af Amer) 92.4 (>60) 03/29/18 05:48 BUN/Creatinine Ratio 9.0 (8-20) 03/29/18 05:48 Glucose 86 mg/dL (70-100) 03/29/18 05:48 Calcium 8.1 mg/dL (8.6-10.3) L 03/29/18 05:48 Magnesium 1.9 mg/dL (1.9-2.7) 03/28/18 20:12 Blood Type O Positive 03/28/18 04:58 Antibody Screen Negative 03/28/18 04:58
[2018-03-30] MEDS: ceFAZolin 1 GM in Dextrose (*) 1 GM/50 ML BAG IVPB SCH ×2 (05:41→13:06)
[2018-03-30 06:03] LABS: Hematocrit 24 % (35-47); Hemoglobin 8.5 g/dl (12.0-16.0); Mean Platelet Volume 9.9 um3 (7.4-10.4); Platelet Count 106 10^3/ul (150-450)
[2018-03-30 06:21] LABS: EGFR Non-African American 101.1 (>60)
[2018-03-30] MEDS ORDERED: Magnesium Sulfate IV* 3 GM in NS 0.9% 100 ML* 100 ML IVPB ONE (07:03)
[2018-03-30 08:26] LABS: INR 1.53 (0.77-1.02)
[2018-03-30] MEDS: Vitamin THERAPEUTIC TAB PO SCH (08:45)
[2018-03-30] MEDS: Docusate CAP* 100 MG PO SCH (08:49)
[2018-03-30] MEDS: Magnesium Hydroxide LIQ* 30 ML UDC PO SCH (08:49)
--- NOTE | 2018-03-30 09:21 | PN ---
Progress Note - Progress Note Date of Service: 03/30/18 SOAP: Subjective: Minimal pain left knee. Patient reports not having taken much narcotics. Patient and her family prefer rehab placement. Objective: LLE: - Dressing c/d/i - NVID Selected Entries 03/30/18 07:15 Temperature 97.7 F Pulse Rate 89 Respiratory 16 Rate Blood Pressure 128/75 (mmHg) O2 Sat by Pulse 96 Oximetry Laboratory Tests 03/28/18 03/29/18 03/30/18 04:58 05:48 05:42 Hct 31 L 28 L 24 L Albumin 03/30/18 05:42 Hct Albumin 2.5 L Assessment: POD 2 L distal femur lateral condyle ORIF Plan: - Knee brace locked in extension - We will wait 7 days for ROM knee given the bone graft placed intraop close to the knee joint - PT, out of bed - NWB LLE except for toe touch weight bearing for transfers - Lovenox x 4 weeks postop - Ancef x 48 hours postop - Dispo planning. Patient and family prefer rehab - Dressing change tomorrow (POD 3) or today if patient will be discharged today
[2018-03-30] MEDS: Acetaminophen TAB* 325 MG PO PRN (12:55)
[2018-03-30] MEDS: Enoxaparin(*) 40 MG/0.4 ML SYR SUBCUT SCH (12:56)
[2018-03-30 13:23] VITALS: BP 121/60
--- NOTE | 2018-03-31 09:50 | DS ---
CC: [facility] in [place] * DISCHARGE SUMMARY: DATE OF ADMISSION: 03/27/18 DATE OF DISCHARGE: 03/30/18 PRIMARY CARE PROVIDER: [facility] in [place]. MY ATTENDING WHILE IN THE HOSPITAL: Ca Glover MD * (DICTATED BY MERARI GASTELUM) STUDIES DONE WHILE IN THE HOSPITAL: Electrocardiogram from 03/27/18 shows normal sinus rhythm, normal axis, no ST segment abnormalities, no hypertrophy, enlargement, rate of 75, QTc of 434. No other abnormalities. Repeat EKG from 03/28/18 shows no significant changes from previous exam. Chest x-ray from read as no active cardiopulmonary disease. Intraoperative fluoroscopy during plate and screw ORIF to distal femur fracture. Of note, other studies are done at [facility] which are not available at this time. MEDICATIONS AT DISCHARGE: 1. Multivitamin 1 tab p.o. daily. 2. Lactobacillus acidophilus 1 each p.o. daily. 3. Tylenol 650 mg p.o. q.4 hours as needed. 4. Albuterol 2.5 mg inhalation q.4 hours while awake. 5. Dulcolax 10 mg p.r. daily as needed. 6. Cyclobenzaprine 5 mg p.o. t.i.d. as needed. 7. Docusate 100 mg p.o. b.i.d. 8. Lovenox 40 mg subcutaneous q.24 hours. 9. Magnesium hydroxide 30 mL p.o. q.6 hours as needed. 10. Magnesium hydroxide 400 mg p.o. daily. 11. Omeprazole 20 mg p.o. b.i.d. 12. Oxycodone 10 mg p.o. q.4 hours as needed. 13. Percocet 2 tabs p.o. q.4 hours as needed. 14. Theragran 1 tab p.o. daily. HOSPITAL COURSE: This is a brief summary of the patient's presentation. For more details, please see history and physical from Dedra Astudillo on . In brief, the patient is a 52-year-old female with no significant past medical history, though during her hospitalization, it was revealed that she has been drinking very significantly for several years after the of her and reports about 2 glasses of wine per night. Recently, the patient stated that she was cleaning her house, mopping the floor, slipped on the wet floor, and fell on her left leg while twisting it. The patient went to [facility] and her x- ray showed a distal left femur fracture, which was deemed to be beyond their capabilities and she [facility]. The patient was given no anticoagulants while at [facility]. The patient's EKG and chest x-ray were as above, which were negative. The patient was cleared for surgery. The patient had initially elevated INR of 1.4 on her admission, which was not addressed at that time. The patient had low magnesium which was replaced, as well as low potassium which was replaced. The patient also had a low hemoglobin with an increased MCV and platelet count of 107,000. The patient underwent surgery without complications. The patient had postoperative pain which was well controlled. The patient worked well with physical therapy and occupational therapy. On 03/30/18, the patient had a CMP drawn, which showed an elevated bilirubin of 1.3, elevated AST greater than ALT at 66 and 22 with over 3:1 ratio, elevated alkaline phosphatase, albumin of 2.5 , normal vitamin B12 and normal folate. The patient also had acute viral hepatitis panel, which was negative. The patient was accepted at the [facility] for acute re[facility]. The patient is stable and amenable for discharge on 03/30/18. PHYSICAL EXAMINATION ON THE DAY OF DISCHARGE: General: The patient is a 52- year- old female who appears her stated age and is sitting comfortably in the bed, in no acute distress. Vital Signs: Temperature 97.1, pulse rate 88, respiratory rate 16, oxygen saturation 100% on room air, blood pressure 121/60. HEENT: Head normocephalic, atraumatic. Sclerae anicteric. No conjunctival injection. Nasal mucosa moist. Oral mucosa moist. No pharyngeal erythema, discharge, or exudate. Neck: Supple, nontender. No lymphadenopathy. No carotid bruits auscultated. No JVD. Cardiac: Regular rate and rhythm. No clicks, murmurs, gallops, or rubs. Pulses 2+ in bilateral dorsalis pedis, posterior tibialis, and radial areas. Abdomen: Soft, nontender, nondistended. Bowel sounds present and normoactive in all 4 quadrants. No hepatosplenomegaly. No abdominal bruits auscultated. Fluid wave negative. Genitourinary: No suprapubic or CVA tenderness. Skin: Clean, dry, intact. Left leg incision covered with large, bulky dressing. DISCHARGE PLAN: The patient will be discharged to [facility] for physical rehab while she recovers from her femur fracture and subsequent surgery. Throughout the patient's hospitalization, she had a clinical picture consistent with alcoholic hepatitis with possible cirrhosis with synthetic liver dysfunction. The patient has a low albumin and elevated INR. The patient's hemoglobin declined from 10.7 initially to 8.5 on the third day of her admission. This should be monitored as outpatient in the RU and has been discussed with the patient's promotions specialist. The patient's negative hepatitis panel, the patient's elevated AST over ALT points strongly to alcoholic hepatitis. Based on the patient's Maddrey discriminant function score of 26, the patient is not eligible for corticosteroids at this time, which were regardless to likely impede on her wound healing. The patient should have imaging outpatient or while she is in the PMRU to assess the architecture of her liver and look for cirrhosis. The patient should have serial CMPs while in the hospital to assess for worsening liver dysfunction or damage. The patient has been started on magnesium supplementation. The patient has been encouraged to abstain entirely from alcohol, which the patient states she agrees. The patient has a MELD score of 16. This should be periodically assessed. The patient should engage in activity as tolerated with physical therapy and occupational therapy. The patient should have a regular unrestricted diet. TIME SPENT: Approximately 60 minutes were spent n the discharge of this patient , 30 of which was spent [id number] with the patient obtaining the history and physical and discussing the treatment plan. MERARI GASTELUM [id number]/[facility] #: [id number] ROXANA
--- NOTE | 2018-04-02 04:30 | OP ---
DATE OF OPERATION: 03/28/18 - ROOM #340 DATE OF : 65 SURGEON: Wili tSinson MD MORTGAGE ORIGINATOR: MERARI Velasquez. A physician foundation assistant was required for the length of the procedure for assistance with positioning, retraction, and closure. ANESTHESIOLOGIST: Dr. Cj Flynn. ANESTHESIA: General anesthesia, femoral nerve block anesthesia, local anesthesia consisting of 20 cc of 0.25% Marcaine with epinephrine. PRE-OP DIAGNOSIS: Left distal femur fracture, intra-articular, involving the medial and lateral condyles. POST-OP DIAGNOSIS: Left distal femur fracture, intra-articular, involving both the medial and lateral femoral condyles. OPERATIVE PROCEDURE: 1. Open reduction internal fixation left distal femur fracture, supracondylar, with intracondylar extension. 2. Arthroscopic reduction internal fixation left distal femur fracture, which qualifies as arthroscopically aided procedure[place] [address]. 3. Modifier 22 for an unusual procedure given the complexity of this fracture and procedure. IV FLUIDS: 1000 cc. ANTIBIOTICS: Ancef 2 g IV. TOURNIQUET TIME: 120 minutes at 300 mmHg. [id number] TIME: 150 minutes. ARTHROSCOPY FLUID UTILIZED: One bag of 3 L for a total of 3 L. RADIATION EXPOSURE: C-arm used. 24 seconds for 0.025 milligray meter squared. SPECIMEN: None. IMPLANTS: Synthes 7-hole large frag LCP plate with 5-mm locking screws through it. I also used a 4.5-mm cannulated partially threaded cortical screw with a washer. I used a 6.5-mm non-cannulated partially threaded screw with a washer as well. I utilized 25 cc of cancellous allograft bone chips. COMPLICATIONS: None. ESTIMATED BLOOD LOSS: Less than 100 cc. INDICATIONS FOR PROCEDURE: The patient is a 52-year-old woman, who fell early in the morning of 03/27/18 or late the previous night when at home. She stated that she was mopping and fell directly onto her left knee. She described no prior history of left knee problems. She was brought to [facility] where she was diagnosed with a left distal femur fracture. X- rays and CT scan demonstrated the fracture line that entered the medial condyle but started supracondylar just proximal to the lateral condyle. There was noted to be 3 to 5 mm of intra-articular displacement. The [facility] was unable to perform the procedure and the patient was transferred to [facility]. I talked with an orthopedist at the [facility] and accepted a transfer. The patient was admitted to the hospitalist service at [facility] with Orthopedic Surgery consulting. The patient was seen and cleared, and optimized for surgery by the hospitalist service and we took the patient to surgery. I had spoken to the patient and her family about nonoperative and operative treatment. We favored operative treatment. The plan was for arthroscopic versus open reduction internal fixation of the left distal femur fracture. Discussed risks and potential complications of the surgery with the patient including bleeding, infection, nerve or blood vessel injury, blood clot, knee pain, stiffness, osteoarthritis, failure of hardware. DESCRIPTION OF PROCEDURE: I obtained a written consent from the patient in preoperative holding. Operative extremity was marked in preoperative holding. Dr. Flynn performed a femoral nerve block in left lower extremity. The patient was taken to the operating room and placed supine on the operating room table. The patient was sedated and intubated. A lateral post was applied to the table and a foot bump was applied to the table. Tourniquet was placed about the left proximal thigh. The left lower extremity was prepped and draped. Surgical time-out was performed. Esmarch was applied and the tourniquet was elevated to 300 mmHg. A standard left knee anterolateral knee arthroscopy portal was established using standard technique. As expected, there was some blood in the joint. I evacuated the bloody fluid and continued to infuse the joint with arthroscopic irrigant. I just performed a diagnostic arthroscopy. In the patellofemoral compartment, there was no articular cartilage damage, but I noted the fracture line to be just proximal to the proximal extent of the anterior cartilage, trochlear groove cartilage about the anterior aspect of the knee. There was a clear fracture line into the medial condyle. With the knee flexed, I noted a displaced intra-articular fracture about the medial condyle. I made an anteromedial knee arthroscopy portal under direct visualization. With an arthroscopic shaver, I debrided in some anterior synovitis about the knee as well as some blood about the fracture site. I measured this to be displaced at least 3 mm. I next evaluated the remainder of the medial and lateral compartments and found no meniscus tear. The medial condyle fracture plane propagated proximally to the more transverse oriented fracture plane in the supracondylar region. While I was visualizing the fracture arthroscopically, I applied a large pelvic bone reduction clamp to the medial and lateral condyles to try to affect a reduction. This was unsuccessful as no clear reduction of the fracture fragments was possible with this maneuver. I tried a manual reduction using my hands on the condyles and similarly no reduction obtained. My initial plan had been to perform an arthroscopic reduction with arthroscopic visualization of fracture line and a closed reduction followed by a laterally placed plate. However, given that this fracture would clearly not reduce indirectly, I decided that an open reduction would be required with much improved exposure of the fracture site. Therefore, I chose an anterior approach with a lateral parapatellar arthrotomy rather than the lateral or anterolateral approach most commonly used for distal femur fractures, with or without a small anterior arthrotomy. Arthroscopic equipment and instruments were placed to the side. I placed a radiolucent triangle under the left knee. I performed an anterior longitudinal incision through the skin, biased slightly laterally from proximal to the proximal pole of the patella to the distal end of the tibial tubercle. I exchanged knives and continued with a different blade down to the extensor mechanism. I next marked and made with a deep knife my lateral parapatellar arthrotomy incision. I was very careful not to cut or damage any articular cartilage while making this approach. I was careful to extend my incision distally deep but not so deep that it was close to the anterior horn of the lateral meniscus. I debrided some minimal undersurface fat, under, deep to the patellar tendon. This approach enabled me to sublux the patella medially. I placed a bent Hohmann medially which allowed me to further retract the extensor tendon medially. I reflected tissues laterally, being careful to respect and not to violate the popliteus and lateral collateral ligaments laterally. This provided excellent exposure of the fracture. I was able to visualize the entire length of the fracture. Using my fingers, I was able to reduce the intra - articular displaced diastased fracture component. Surprisingly, this took a significant amount of force, pressing distal and medial with the large fracture fragment that included the entire lateral condyle and some of the medial condyle. This is likely because there had been much impaction of the superior and superolateral extent of the fracture. I noted at this point that I would definitely require some bone chips because there was a clear defect in the lateral proximal extent of the fracture once the impaction had been undone. I called for cancellous allograft bone chips. I debrided within the fracture with a small curette any fibrous tissue. We then re- reduced the fracture, with perfect reduction distally intra-articular. I placed a K-wire from lateral to medial across the fracture site. I then drilled and placed a 4.5 mm cannulated partially threaded screw. I included a washer. Given the force that the body was including to try to resist reduction as well as the generally poor quality of the bone, this single screw was not quite able to fully hold reduction. It improved upon the state of the fracture line prior to placement but I knew that much support would be required to maintain anatomic reduction. I had placed a screw anteriorly knowing that it would not get in the way of a future plate. I had both lateral distal femur precontoured plates as well as a large frag set from [employer] with LCP uncontoured plates. I applied both of them to the lateral aspect of the distal femur. I found that the large frag plates, fit better, distally although they would need contouring. I was also able to use a shorter plate with the large frag set rather than with a contoured distal femoral locking plate. I contoured a large frag plate, 7-hole, to fit nicely against the lateral aspect of the distal femur. I placed a pin through the plate through one of its proximal holes. I next drilled and placed a locking screw, 5 mm through the distal most hole in the plate. I drilled and then placed a screw, having already placed 1 nonlocking screw and also reducing the bone manually. I filled the large frag plate with locking screws. This held the bone reduced excellently. There was anatomic reduction with no diastasis or displacement whatsoever at the fracture site distally. I then after the plate and all of its locking screws had been applied , placed 1 additional screw just posterior to the distal end of the plate. This was a 6.5-mm non-cannulated partially threaded screw with a washer. I confirmed by palpation and visualization that the screw did not enter the intercondylar notch. I was able to visualize that all of my distal screws did not violate the joint or go into the intracondylar notch. While the fracture site was now perfectly reduced along most of its length, at the proximal extent, laterally, there was now a defect given the impaction that had occurred at that part of the fracture. As well, I noted that the bone in general was very thin distally about both of the medial and lateral condyle, which had prevented me from being able to use a pelvic bone reduction clamp once I opened the knee joint. I filled in that defect proximally with 25 cc of cancellous bone allograft. This stuffed in nicely to the defect there. Irrigation. The tourniquet was dropped at exactly 120 minutes of inflation. Closure of the lateral parapatellar arthrotomy was performed with figure-of- eight stitches using Ethibond 0 and Vicryl 0 suture. Closure of the subcutaneous tissue was performed with buried simple stitches using Vicryl 2-0 suture. Closure of the skin incision, the long anterior longitudinal incision as well as the arthroscopy portal skin incisions was performed with rodrick. I applied 20 cc of local anesthetic into the subcutaneous tissues about the incisions. It should be stated that I used C-arm during this case to confirm excellent reduction and excellent placement of nonlocking screws as well as plate with locking screws, appropriate length of hardware, appropriate position of hardware. Xeroform, 4x4's, ABDs, sterile Webril. Cj bandage from foot to proximal thigh. The patient was awakened and extubated and transferred to the PACU. DISPOSITION: Postoperatively, the patient was readmitted to the hospitalist service with Orthopedic Surgery consulting. The patient was to receive Ancef 1 g IV q.8 hours x48 hours postoperatively. In the operating room, she had been placed in a knee brace locked in extension and I decided that she would remain that way for at least 7 days post-operatively to prevent her cancellous bone chips from moving around, exiting bone, or entering the joint. The patient was provided physical therapy. She was made nonweightbearing left lower extremity except for toe-touch weightbearing for transfers. Pain control as needed. I have spoken already with the patient's family, who described a strong preference for rehabilitation placement rather than the patient being sent home with VNS services. We will continue to follow her in the hospital and we will obtain hematocrit labs for several days postoperatively. I will see her approximately 2 weeks postoperatively in the office for a wound check and to start the patient's physical therapy with some movement of that knee. [id number]/[facility] #: [id number] [facility] HOSPITALSarah
== END 2018-03-30 13:52 | DRG 308 ==
LOC: SSU 14:45
PROVIDERS: ADMIT Internal Medicine; ATTEND Internal Medicine
PROC: 0SBD4ZZ Excision of Left Knee Joint, Percutaneous Endoscopic Approach (ICD-10-PCS; 2018-03-28)
PROC: 0QSC04Z Reposition Left Lower Femur with Internal Fixation Device, Open Approach (ICD-10-PCS; principal; 2018-03-28 13:00)
DX: S72.422A Displaced fracture of lateral condyle of left femur, initial encounter for closed fracture (principal); F50.00 Anorexia nervosa, unspecified; E83.42 Hypomagnesemia; K70.10 Alcoholic hepatitis without ascites; K70.30 Alcoholic cirrhosis of liver without ascites; Z72.89 Other problems related to lifestyle; Y92.009 Unspecified place in unspecified non-institutional (private) residence as the place of occurrence of the external cause; Z79.01 Long term (current) use of anticoagulants; W01.0XXA Fall on same level from slipping, tripping and stumbling without subsequent striking against object, initial encounter; Y93.E5 Activity, floor mopping and cleaning
CPT/HCPCS: 36415; 71045; 76001; 80048; 80074; 80076; 82607; 82746; 83735; 85014; 85018; 85025; 85049; 85610; 86850; 86900; 86901; 90686; 93005; A9270-GY; C1713; C1776; G8987-GO-CK; G8988-GO-CI; J0690; J0780; J1100; J1650; J1885; J2250; J2270; J2405; J2704; J2795; J3010; J3475; J3480; J3490

== ENCOUNTER 2019-09-08 11:02 | Emergency (ER) | payer OTHER ==
[2019-09-08 11:15] VITALS: BP 110/75
--- NOTE | 2019-09-08 11:20 | UC ---
Eye Complaint HPI - HPI Summary HPI Summary: left eye w/ Puffy and crusty in the morning x3 days. Has a runny nose on the left side only as well. Pt believes she has pink eye. Has not applied anything to the eye. she also thinks she may be allergic to new dog her daughter has. lives w/ 2 young children at home, but they do not have similar symptoms. - History of Current Complaint Chief Complaint: UCEye Stated Complaint: LEFT EYE COMPLAINT Time Seen by Provider: 09/08/19 11:10 Hx Obtained From: Patient Hx Last Menstrual Period: yrs Pain Intensity: 3 Pain Scale Used: 0-10 Numeric Aggravating Factor(s): Nothing Alleviating Factor(s): Nothing - Allergies/Home Medications Allergies/Adverse Reactions: Allergies Allergy/AdvReac Type Severity Reaction Status Date / Time codeine Allergy GI Upset Verified 09/08/19 11:16 STEROIDS Allergy INCREASED Uncoded 09/08/19 11:16 SYMPTOMS Home Medications: Home Medications Acetaminophen TAB* [Tylenol TAB*] 650 mg PO Q4H PRN tab 03/30/18 [Rx Confirmed 09/08/19] Multivitamin [Multivitamins] 1 cap PO DAILY 08/26/18 [History Confirmed 09/08/19 ] Erythromycin OPTH OINT* [Erythromycin 0.5% OPTH OINT*] 1 applic LEFT EYE TID 7 Days #1 ophth.oint 09/08/19 [Rx] Magnesium Oxide [Magnesium 400 mg] 1 tab PO DAILY 09/08/19 [History Confirmed ] Potassium Gluconate [Potassium] 600 mg PO DAILY 09/08/19 [History Confirmed ] PMH/Surg Hx/FS Hx/Imm Hx - Additional Past Medical History Additional PMH: no chronic illness Previously Healthy: Yes - Surgical History Surgical History: Yes Surgery Procedure, Year, and Place: L hip, L elbow, right knee meniscus repair, left femur - Family History Known Family History: Positive: Cardiac Disease, Hypertension, Diabetes - Social History Alcohol Use: Rare Substance Use Type: None Smoking Status (MU): Never Smoked Tobacco - Immunization History Most Recent Influenza Vaccination: 03/28/18 Most Recent Tetanus Shot: 02/2018 Most Recent Pneumonia Vaccination: never Vaccination Up to Date: Yes Review of Systems All Other Systems Reviewed And Are Negative: Yes Constitutional: Negative: Fever, Chills, Fatigue Skin: Negative: Rash Eyes: Positive: Eye Redness - L, Other - 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 Negative: Diplopia, Photophobia ENT: Positive: Nasal Discharge - +POST NASAL DRIP, Sinus Congestion. Negative: Sinus Pain/Tenderness Respiratory: Negative: Cough Neurological/Mental Status: Negative: Headache Physical Exam Triage Information Reviewed: Yes Appearance: Well-Appearing Vital Signs: Initial Vital Signs Temp 98.6 F 09/08/19 11:10 Pulse 99 09/08/19 11:10 Resp 17 09/08/19 11:10 BP 110/75 09/08/19 11:10 Pulse Ox 100 09/08/19 11:10 Vital Signs Reviewed: Yes Eyes: Positive: Conjunctiva Inflamed - L EYE. Negative: Discharge, Other: - NO EYELID SWELLING OR PAIN W/ EOM, PERRLA BILAT Eye Complaint Course/Dx - Course Course Of Treatment: L eye conjunctivitis which could be allergic, viral or bacterial. No signs of preorbital cellulitis and vitals are good. She may try otc allergy meds and will cover topical antibx to cover for bacterial source. I offered COVID-19 testing and she declined as mild symptoms have been seen in COVID-19 PT.S - Differential Dx/Diagnosis Differential Diagnosis/HQI/PQRI: Corneal Abrasion, Other Provider Diagnosis: Conjunctivitis Discharge ED - Sign-Out/Discharge Documenting (check all that apply): Patient Departure All imaging exams completed and their final reports reviewed: No Studies - Discharge Plan Condition: Good Disposition: HOME Prescriptions: Erythromycin OPTH OINT* [Erythromycin 0.5% OPTH OINT*] 1 applic LEFT EYE TID 7 Days #1 ophth.oint Patient Education Materials: Conjunctivitis (ED) Referrals: Jannette Blair NP [Primary Care Provider] - Additional Instructions: We discussed your mild symptoms and the possibility of COVID-19 INFECTION and you have declined testing. - Billing Disposition and Condition Condition: GOOD Disposition: Home
== END 2019-09-08 11:32 | disposition home or self-care (01) ==
LOC: UCCORT 11:02
DX: H10.32 Unspecified acute conjunctivitis, left eye (principal); R09.89 Other specified symptoms and signs involving the circulatory and respiratory systems; Z88.5 Allergy status to narcotic agent; Z88.8 Allergy status to other drugs, medicaments and biological substances
CPT/HCPCS: 99212; G0463

== ENCOUNTER 2020-02-18 23:17 | Inpatient (IN) ==
[2020-02-18] MEDS ORDERED: Ondansetron 4 mg VIAL 2 MG/ML 2 ml VIAL IV ONE (23:45)
[2020-02-18] MEDS ORDERED: Metoclopramide 5 MG/ML VIAL (10 mg) IV SLOW PU ONE (23:45)
[2020-02-18] MEDS ORDERED: NS 0.9% 1000 ml BAG 1,000 ML IV ONE (23:45)
[2020-02-19 00:44] LABS: INR 2.29 (0.82-1.09)
[2020-02-19 01:03] LABS: ALT 28 U/L (7-52); Albumin 2.5 g/dL (3.2-5.2); Albumin/Globulin Ratio 0.6 (1-3); Alkaline Phosphatase 168 U/L (34-104); Amylase 88 U/L (29-103); BUN/Creatinine Ratio 6.6 (8-20); Blood Urea Nitrogen 13 mg/dL (6-24); C Reactive Protein 9.55 mg/L (<8.01); CO2 Carbon Dioxide 15 mmol/L (22-32); Calcium 8.4 mg/dL (8.6-10.3); Chloride 97 mmol/L (101-111); EGFR African American 32.2 (>60); EGFR Non-African American 26.6 (>60); Glucose 90 mg/dL (70-100); Lipase 40 U/L (11.0-82.0); Sodium 126 mmol/L (135-145); Total Protein 6.5 g/dL (6.4-8.9)
[2020-02-19 01:21] LABS: Anion Gap 14 mmol/L (2-11)
[2020-02-19] MEDS ORDERED: NS 0.9% 1000 ml BAG 1,000 ML IV ONE ×2 (01:25→02:50)
[2020-02-19 02:01] LABS: Hematocrit 28 % (35-47); Mean Corpuscular HGB Conc 33 g/dL (31-36); Mean Corpuscular Hemoglobin 30 pg (27-31); Mean Corpuscular Volume 93 fL (80-97); Mean Platelet Volume 9.5 fL (7.4-10.4); Platelet Count 118 10^3/uL (150-450); Red Blood Count 2.98 10^6 /uL (3.70-4.87); Red Cell Distribution Width 19 % (10-15); White Blood Count 2.6 10^3/uL (3.5-10.8)
[2020-02-19 02:17] LABS: Potassium Redraw 3.4 mmol/L (3.5-5.0)
[2020-02-19] MEDS ORDERED: Lactulose 30 ml UDC PO ONE (03:58)
[2020-02-19 04:07] LABS: ABS Lymphocytes 0.3 10^3/ul (1.0-4.8); ABS Monocytes 0.2 10^3/ul (0-0.8); ABS Neutrophils 2.1 10^3/ul (1.5-7.7); Eosinophil % 0.3 %; Lymphocyte % 10.1 %
[2020-02-19 04:18] LABS: Albumin 1.9 g/dL (3.2-5.2); Calcium 7.6 mg/dL (8.6-10.3); Potassium 3.3 mmol/L (3.5-5.0); Total Bilirubin 5.3 mg/dL (0.2-1.0)
[2020-02-19 04:24] LABS: Albumin/Globulin Ratio 0.6 (1-3); BUN/Creatinine Ratio 6.5 (8-20); EGFR African American 31.6 (>60); EGFR Non-African American 26.1 (>60); Globulin 3.1 g/dL (2-4)
[2020-02-19] MEDS ORDERED: Dextrose 50% Syringe 50 ml 25 GM/50 ML SYRINGE IV PUSH ONE (05:38)
[2020-02-19] MEDS ORDERED: cefTRIAXone 2 GM ADDV.VIAL 2 GM in NS 0.9% 100 ml BAG 100 ML IVPB ONE (06:37)
[2020-02-19] MEDS ORDERED: cefTRIAXone 2 GM ADDV.VIAL ONE (06:44)
[2020-02-19] MEDS ORDERED: Vancomycin 1,000 MG in NS 0.9% 250 ml 250 ML IVPB ONE (08:42)
[2020-02-19] MEDS: Norepinephrine 16MCG/ML IVPRE 4,000 MCG/250 ML BAG IV SCH ×2 (08:55→22:10)
[2020-02-19] MEDS ORDERED: Vancomycin per Pharmacy 1 EA NOTE FOLLOW UP SCH (09:00)
[2020-02-19] MEDS ORDERED: LORazepam 2 mg VIAL 1 ml IV PUSH ONE (11:37)
[2020-02-19] MEDS ORDERED: Lorazepam PYXIS KEY PRN (11:37)
[2020-02-19] MEDS ORDERED: Dextrose 50% Syringe 50 ml 25 GM/50 ML SYRINGE ONE (12:49)
[2020-02-19 14:55] LABS: BUN/Creatinine Ratio 7.4 (8-20); Calcium 7.9 mg/dL (8.6-10.3); EGFR African American 31.1 (>60); EGFR Non-African American 25.7 (>60); Phosphorus 3.6 mg/dL (2.5-5.0); Potassium 3.2 mmol/L (3.5-5.0)
[2020-02-19 15:11] LABS: Urine Appearance Clear; Urine Bilirubin Negative (Negative); Urine Blood Negative (Negative); Urine Color Amber; Urine Glucose Negative (Negative); Urine Ketones Negative (Negative); Urine Nitrite Negative (Negative); Urine Protein Negative (Negative); Urine Specific Gravity 1.015 (1.010-1.030); Urine Urobilinogen Negative (Negative)
[2020-02-19] MEDS: Cefepime 1 GM in Dextrose 1 GM/50 ML BAG IV SCH (17:43)
[2020-02-19] MEDS: Lactated Ringers 1000 ml BAG 1,000 ML IV SCH (18:55)
[2020-02-19] MEDS: Dextrose 50% Syringe 50 ml 25 GM/50 ML SYRINGE IV PUSH PRN (19:00)
[2020-02-19 21:05] LABS: Magnesium 1.6 mg/dL (1.9-2.7)
[2020-02-19] MEDS ORDERED: Magnesium Sulfate 2 gm BAG 2 GM/50 ML BAG IVPB ONE (21:32)
[2020-02-19] MEDS: KCL 20 MEQ/100 ML IVPREMIX 20 MEQ/100 ML BAG IV SCH (22:21)
[2020-02-20] MEDS: KCL 20 MEQ/100 ML IVPREMIX 20 MEQ/100 ML BAG IV SCH (01:12)
[2020-02-20] MEDS: Dextrose 50% Syringe 50 ml 25 GM/50 ML SYRINGE IV PUSH PRN ×2 (02:49→11:42)
[2020-02-20] MEDS: Lactated Ringers 1000 ml BAG 1,000 ML IV SCH (03:03)
[2020-02-20 04:27] LABS: Hematocrit 25 % (35-47); Hemoglobin 8.2 g/dL (12.0-16.0); Mean Corpuscular HGB Conc 32 g/dL (31-36); Mean Corpuscular Hemoglobin 30 pg (27-31); Mean Corpuscular Volume 93 fL (80-97); Mean Platelet Volume 9.6 fL (7.4-10.4); Platelet Count 106 10^3/uL (150-450); Red Blood Count 2.74 10^6 /uL (3.70-4.87); Red Cell Distribution Width 19 % (10-15); White Blood Count 20.3 10^3/uL (3.5-10.8)
[2020-02-20 04:30] LABS: ABS Basophils 0.1 10^3/ul (0-0.2); ABS Lymphocytes 0.7 10^3/ul (1.0-4.8); ABS Monocytes 1.9 10^3/ul (0-0.8); ABS Neutrophils 17.6 10^3/ul (1.5-7.7); Lymphocyte % 3.5 %; Nucleated Red Blood Cells % 0.1
[2020-02-20 04:31] LABS: INR 3.28 (0.82-1.09)
[2020-02-20] MEDS: Norepinephrine 16MCG/ML IVPRE 4,000 MCG/250 ML BAG IV SCH ×5 (04:47→22:54)
[2020-02-20 04:56] LABS: Albumin 1.9 g/dL (3.2-5.2); Albumin/Globulin Ratio 0.6 (1-3); BUN/Creatinine Ratio 8.6 (8-20); EGFR Non-African American 26.4 (>60); Globulin 3.2 g/dL (2-4); Potassium 4.4 mmol/L (3.5-5.0); Total Bilirubin 5.3 mg/dL (0.2-1.0); Total Protein 5.1 g/dL (6.4-8.9)
[2020-02-20] MEDS: Cefepime 1 GM in Dextrose 1 GM/50 ML BAG IV SCH (05:42)
[2020-02-20] MEDS ORDERED: Vancomycin Random Level NOTE FOLLOW UP ONE (06:00)
[2020-02-20] MEDS: Ondansetron 4 mg VIAL 2 MG/ML 2 ml VIAL IV PRN ×2 (06:21→21:55)
[2020-02-20] MEDS ORDERED: fentaNYL 100 mcg/2 ml 50 MCG/ML VIAL IV SLOW PU PRN (06:30)
[2020-02-20] MEDS ORDERED: fentaNYL 100 mcg/2 ml 50 MCG/ML VIAL ONE (06:37)
[2020-02-20] MEDS ORDERED: Phytonadione IV (Adult) 10 MG/ML 1 ML AMP IV ONE (07:18)
[2020-02-20] MEDS ORDERED: Phytonadione 10 mg in 50 mL NS over 30 min IV ONE (08:00)
[2020-02-20] MEDS ORDERED: cefTRIAXone 1 gm/50 mL NS BAG 1 GM/50 ML BAG IVPB SCH (08:00)
[2020-02-20] MEDS ORDERED: Sodium Bicarbonate 8.4% SYR 50 ml SYRINGE IV ONE (10:10)
[2020-02-20] MEDS: fentaNYL 100 mcg/2 ml 50 MCG/ML VIAL IV SLOW PU PRN ×3 (10:53→21:56)
[2020-02-20] MEDS: Pantoprazole VIAL 40 MG VIAL IV SCH (10:57)
[2020-02-20] MEDS ORDERED: WATER CENTR SCH (11:00)
[2020-02-20] MEDS ORDERED: DEXTROSE 50% CENTR SCH (11:00)
[2020-02-20] MEDS: WATER CENTR SCH (11:44)
[2020-02-20] MEDS: DEXTROSE 50% CENTR SCH (11:44)
[2020-02-20] MEDS ORDERED: fentaNYL 100 mcg/2 ml 50 MCG/ML VIAL IV ONE (13:30)
[2020-02-20] MEDS: Albumin Human 25% 25 GM/100 ML BTL IV SCH ×2 (14:18→21:56)
[2020-02-20] MEDS ORDERED: Vancomycin 1,000 MG in NS 0.9% 250 ml 250 ML IVPB ONE (15:00)
[2020-02-20] MEDS ORDERED: Meropenem 1 GM PREMIX(*) 1 GM/50 ML BAG IV SCH (16:00)
[2020-02-20 17:33] LABS: Body Fluid Source Peritonial Fluid
[2020-02-20 20:51] LABS: Body Fluid Mono 15 %
[2020-02-21] MEDS: ZOSYN 3.375 GM Q8H per EXTENDED INFUSION IV SCH ×3 (03:36→19:55)
[2020-02-21] MEDS: Norepinephrine 16MCG/ML IVPRE 4,000 MCG/250 ML BAG IV SCH ×2 (03:41→09:54)
[2020-02-21] MEDS: Ondansetron 4 mg VIAL 2 MG/ML 2 ml VIAL IV PRN ×2 (04:34→09:28)
[2020-02-21 05:02] LABS: Hematocrit 19 % (35-47); Hemoglobin 6.5 g/dL (12.0-16.0); INR 2.7 (0.82-1.09); Mean Corpuscular HGB Conc 34 g/dL (31-36); Mean Corpuscular Hemoglobin 31 pg (27-31); Mean Corpuscular Volume 91 fL (80-97); Mean Platelet Volume 9.3 fL (7.4-10.4); Platelet Count 79 10^3/uL (150-450); Red Blood Count 2.08 10^6 /uL (3.70-4.87); Red Cell Distribution Width 19 % (10-15); White Blood Count 8.7 10^3/uL (3.5-10.8)
[2020-02-21 05:09] LABS: Albumin 2.7 g/dL (3.2-5.2); Albumin/Globulin Ratio 1.1 (1-3); BUN/Creatinine Ratio 9.8 (8-20); Calcium 8.6 mg/dL (8.6-10.3); EGFR African American 34.8 (>60); EGFR Non-African American 28.8 (>60); Globulin 2.5 g/dL (2-4); Potassium 3.9 mmol/L (3.5-5.0); Total Bilirubin 4.4 mg/dL (0.2-1.0); Total Protein 5.2 g/dL (6.4-8.9)
[2020-02-21 05:31] LABS: Vancomycin Random 15.5 mcg/mL
[2020-02-21] MEDS: Albumin Human 25% 25 GM/100 ML BTL IV SCH ×3 (05:33→21:11)
[2020-02-21] MEDS ORDERED: Vancomycin Random Level NOTE FOLLOW UP ONE (06:00)
[2020-02-21] MEDS ORDERED: Vancomycin per Pharmacy 1 EA NOTE FOLLOW UP SCH (06:00)
[2020-02-21 06:58] LABS: Acanthocytes 1+
[2020-02-21 06:59] LABS: ABS Basophils 0.1 10^3/ul (0-0.2); ABS Lymphocytes 0.7 10^3/ul (1.0-4.8); ABS Neutrophils 6.9 10^3/ul (1.5-7.7); Eosinophil % 0.1 %
[2020-02-21] MEDS: WATER CENTR SCH (07:24)
[2020-02-21] MEDS: DEXTROSE 50% CENTR SCH (07:24)
[2020-02-21] MEDS: fentaNYL 100 mcg/2 ml 50 MCG/ML VIAL IV SLOW PU PRN ×2 (09:17→16:54)
[2020-02-21] MEDS: Pantoprazole VIAL 40 MG VIAL IV SCH (09:23)
[2020-02-21] MEDS ORDERED: Phytonadione IV (Adult) 10 MG in NS 0.9% 50 ML 50 ML IV ONE (09:30)
[2020-02-21 09:55] LABS: Hematocrit 18 % (35-47); Hemoglobin 6.4 g/dL (12.0-16.0); Mean Corpuscular HGB Conc 35 g/dL (31-36); Mean Corpuscular Hemoglobin 32 pg (27-31); Mean Corpuscular Volume 90 fL (80-97); Mean Platelet Volume 9.4 fL (7.4-10.4); Platelet Count 72 10^3/uL (150-450); Red Blood Count 2.01 10^6 /uL (3.70-4.87); Red Cell Distribution Width 18 % (10-15); White Blood Count 7.6 10^3/uL (3.5-10.8)
[2020-02-21 14:34] LABS: Hematocrit 24 % (35-47); Hemoglobin 8.1 g/dL (12.0-16.0); Mean Corpuscular HGB Conc 34 g/dL (31-36); Mean Corpuscular Hemoglobin 31 pg (27-31); Mean Corpuscular Volume 90 fL (80-97); Red Blood Count 2.67 10^6 /uL (3.70-4.87); Red Cell Distribution Width 17 % (10-15); White Blood Count 7.2 10^3/uL (3.5-10.8)
[2020-02-21] MEDS ORDERED: Vancomycin 1,000 MG in NS 0.9% 250 ml 250 ML IV ONE (15:30)
[2020-02-21 16:26] LABS: INR 1.91 (0.82-1.09)
[2020-02-21] MEDS ORDERED: Lorazepam PYXIS KEY PRN (16:47)
[2020-02-21] MEDS ORDERED: LORazepam 2 mg VIAL 1 ml IV PUSH ONE (16:47)
[2020-02-21] MEDS ORDERED: Lorazepam PYXIS KEY ONE (16:48)
[2020-02-21] MEDS ORDERED: LORazepam 2 mg VIAL 1 ml ONE (16:49)
[2020-02-21 17:29] LABS: Polychromasia 1+
[2020-02-21 17:31] LABS: Burr Cells 1+
[2020-02-21 17:42] LABS: Platelet Count 87 10^3/uL (150-450)
[2020-02-21 17:43] LABS: ABS Lymphocytes 0.4 10^3/ul (1.0-4.8); ABS Monocytes 0.7 10^3/ul (0-0.8); Eosinophil % 0.3 %; Lymphocyte % 5.6 %
[2020-02-22] MEDS: Norepinephrine 16MCG/ML IVPRE 4,000 MCG/250 ML BAG IV SCH (02:57)
[2020-02-22] MEDS: ZOSYN 3.375 GM Q8H per EXTENDED INFUSION IV SCH ×3 (03:01→19:35)
[2020-02-22 04:55] LABS: ABS Eosinophils 0.1 10^3/ul (0-0.6); ABS Lymphocytes 0.6 10^3/ul (1.0-4.8); ABS Monocytes 0.9 10^3/ul (0-0.8); ABS Neutrophils 5.6 10^3/ul (1.5-7.7); Eosinophil % 1.7 %; Hematocrit 21 % (35-47); Hemoglobin 7.3 g/dL (12.0-16.0); Lymphocyte % 8.7 %; Mean Corpuscular HGB Conc 35 g/dL (31-36); Mean Corpuscular Hemoglobin 31 pg (27-31); Mean Corpuscular Volume 90 fL (80-97); Mean Platelet Volume 9.4 fL (7.4-10.4); Platelet Count 61 10^3/uL (150-450); Red Blood Count 2.33 10^6 /uL (3.70-4.87); Red Cell Distribution Width 18 % (10-15); White Blood Count 7.3 10^3/uL (3.5-10.8)
[2020-02-22 04:57] LABS: Albumin 2.9 g/dL (3.2-5.2); Albumin/Globulin Ratio 1.6 (1-3); BUN/Creatinine Ratio 11.7 (8-20); Calcium 8.4 mg/dL (8.6-10.3); EGFR African American 40.1 (>60); EGFR Non-African American 33.1 (>60); Globulin 1.8 g/dL (2-4); INR 2.77 (0.82-1.09); Potassium 3.2 mmol/L (3.5-5.0); Total Bilirubin 6.1 mg/dL (0.2-1.0); Total Protein 4.7 g/dL (6.4-8.9)
[2020-02-22 04:58] LABS: Vancomycin Random 21.2 mcg/mL
[2020-02-22] MEDS: Albumin Human 25% 25 GM/100 ML BTL IV SCH ×2 (05:02→14:07)
[2020-02-22] MEDS ORDERED: Vancomycin Random Level NOTE FOLLOW UP ONE (06:00)
[2020-02-22] MEDS: Pantoprazole VIAL 40 MG VIAL IV SCH (08:30)
[2020-02-22] MEDS: DEXTROSE 50% CENTR SCH (08:34)
[2020-02-22] MEDS: WATER CENTR SCH (08:34)
[2020-02-22] MEDS: KCL 20 MEQ/100 ML IVPREMIX 20 MEQ/100 ML BAG IV SCH ×2 (10:19→12:24)
[2020-02-22] MEDS: fentaNYL 100 mcg/2 ml 50 MCG/ML VIAL IV SLOW PU PRN ×2 (10:28→18:25)
[2020-02-22 10:48] LABS: Magnesium 1.7 mg/dL (1.9-2.7)
[2020-02-22 12:08] LABS: Lactate Dehydrogenase, BF 223 U/L
[2020-02-22 14:58] LABS: Fluid Type, Protein, Total PERITONEAL
[2020-02-22 15:05] LABS: Albumin, BF 0.3 g/dL; Fluid Type, Albumin PERITONEAL
[2020-02-22] MEDS: Ondansetron 4 mg VIAL 2 MG/ML 2 ml VIAL IV PRN (21:37)
[2020-02-22] MEDS ORDERED: fentaNYL 100 mcg/2 ml 50 MCG/ML VIAL IV SLOW PU ONE (23:53)
[2020-02-23] MEDS: fentaNYL 100 mcg/2 ml 50 MCG/ML VIAL IV SLOW PU PRN ×4 (04:34→20:57)
[2020-02-23] MEDS: ZOSYN 3.375 GM Q8H per EXTENDED INFUSION IV SCH ×3 (04:34→19:36)
[2020-02-23 05:29] LABS: Hematocrit 23 % (35-47); Hemoglobin 7.7 g/dL (12.0-16.0); Mean Corpuscular HGB Conc 34 g/dL (31-36); Mean Corpuscular Hemoglobin 30 pg (27-31); Mean Corpuscular Volume 91 fL (80-97); Mean Platelet Volume 9.3 fL (7.4-10.4); Platelet Count 57 10^3/uL (150-450); Red Blood Count 2.55 10^6 /uL (3.70-4.87); Red Cell Distribution Width 17 % (10-15); White Blood Count 7.1 10^3/uL (3.5-10.8)
[2020-02-23 05:44] LABS: INR 3.15 (0.82-1.09)
[2020-02-23 06:12] LABS: Albumin 2.9 g/dL (3.2-5.2); Albumin/Globulin Ratio 1.7 (1-3); BUN/Creatinine Ratio 11.5 (8-20); Calcium 8.6 mg/dL (8.6-10.3); EGFR African American 44.5 (>60); EGFR Non-African American 36.8 (>60); Globulin 1.7 g/dL (2-4); Total Bilirubin 7.4 mg/dL (0.2-1.0); Total Protein 4.6 g/dL (6.4-8.9)
[2020-02-23 06:29] LABS: Potassium 3.5 mmol/L (3.5-5.0)
[2020-02-23 06:51] LABS: ABS Eosinophils 0.2 10^3/ul (0-0.6); ABS Lymphocytes 0.7 10^3/ul (1.0-4.8); ABS Monocytes 1.3 10^3/ul (0-0.8); ABS Neutrophils 4.8 10^3/ul (1.5-7.7); Eosinophil % 3.5 %; Lymphocyte % 9.5 %
[2020-02-23] MEDS: Pantoprazole VIAL 40 MG VIAL IV SCH (09:23)
[2020-02-23] MEDS: WATER CENTR SCH (09:49)
[2020-02-23] MEDS: DEXTROSE 50% CENTR SCH (09:49)
[2020-02-23] MEDS ORDERED: Phytonadione Oral Solution 5 MG/25 ML UDC PO ONE (10:54)
[2020-02-23] MEDS: Ondansetron 4 mg VIAL 2 MG/ML 2 ml VIAL IV PRN (15:52)
[2020-02-23] MEDS ORDERED: Furosemide 40 mg/4 ml IV VIAL IV SLOW PU ONE (15:57)
[2020-02-23 18:27] LABS: BUN/Creatinine Ratio 11.2 (8-20); Calcium 8.9 mg/dL (8.6-10.3); EGFR African American 46.3 (>60); EGFR Non-African American 38.2 (>60); Potassium 3.3 mmol/L (3.5-5.0)
[2020-02-23] MEDS: KCL 20 MEQ/100 ML IVPREMIX 20 MEQ/100 ML BAG IV SCH ×2 (19:08→21:29)
[2020-02-24] MEDS: fentaNYL 100 mcg/2 ml 50 MCG/ML VIAL IV SLOW PU PRN ×2 (01:05→06:21)
[2020-02-24] MEDS: Ondansetron 4 mg VIAL 2 MG/ML 2 ml VIAL IV PRN (01:41)
[2020-02-24] MEDS: ZOSYN 3.375 GM Q8H per EXTENDED INFUSION IV SCH ×3 (04:41→20:46)
[2020-02-24 05:05] LABS: INR 3.23 (0.82-1.09)
[2020-02-24 05:10] LABS: Hematocrit 24 % (35-47); Hemoglobin 8.1 g/dL (12.0-16.0); Mean Corpuscular HGB Conc 35 g/dL (31-36); Mean Corpuscular Hemoglobin 31 pg (27-31); Mean Corpuscular Volume 90 fL (80-97); Mean Platelet Volume 8.8 fL (7.4-10.4); Platelet Count 56 10^3/uL (150-450); Red Cell Distribution Width 17 % (10-15); White Blood Count 5.5 10^3/uL (3.5-10.8)
[2020-02-24 05:15] LABS: Albumin 2.8 g/dL (3.2-5.2); Albumin/Globulin Ratio 1.5 (1-3); BUN/Creatinine Ratio 11.6 (8-20); Calcium 8.9 mg/dL (8.6-10.3); EGFR African American 52.1 (>60); EGFR Non-African American 43.1 (>60); Globulin 1.9 g/dL (2-4); Potassium 3.4 mmol/L (3.5-5.0); Total Bilirubin 8.2 mg/dL (0.2-1.0); Total Protein 4.7 g/dL (6.4-8.9)
[2020-02-24 06:13] LABS: ABS Basophils 0.1 10^3/ul (0-0.2); ABS Eosinophils 0.2 10^3/ul (0-0.6); ABS Lymphocytes 0.7 10^3/ul (1.0-4.8); ABS Monocytes 1.5 10^3/ul (0-0.8); Eosinophil % 3.9 %; Lymphocyte % 13.4 %; Nucleated Red Blood Cells % 0.1
[2020-02-24] MEDS: WATER CENTR SCH (06:22)
[2020-02-24] MEDS: DEXTROSE 50% CENTR SCH (06:22)
[2020-02-24] MEDS: Pantoprazole VIAL 40 MG VIAL IV SCH (08:12)
[2020-02-24] MEDS ORDERED: Phytonadione IV (Adult) 5 MG in NS 0.9% 50 ML 50 ML IV ONE (12:00)
[2020-02-24] MEDS ORDERED: Albumin Human 25% 12.5 GM/50 ML BTL IV ONE (13:40)
[2020-02-24] MEDS ORDERED: WATER CENTR SCH (15:28)
[2020-02-24] MEDS ORDERED: DEXTROSE 50% CENTR SCH (15:28)
[2020-02-25] MEDS: ZOSYN 3.375 GM Q8H per EXTENDED INFUSION IV SCH ×3 (04:30→20:02)
[2020-02-25 04:45] LABS: ABS Eosinophils 0.2 10^3/ul (0-0.6); ABS Lymphocytes 0.8 10^3/ul (1.0-4.8); ABS Monocytes 1.1 10^3/ul (0-0.8); ABS Neutrophils 1.7 10^3/ul (1.5-7.7); Eosinophil % 5.9 %; Hematocrit 21 % (35-47); Hemoglobin 7.3 g/dL (12.0-16.0); Lymphocyte % 19.7 %; Mean Corpuscular HGB Conc 35 g/dL (31-36); Mean Corpuscular Hemoglobin 31 pg (27-31); Mean Corpuscular Volume 89 fL (80-97); Mean Platelet Volume 8.9 fL (7.4-10.4); Nucleated Red Blood Cells % 0.2; Platelet Count 46 10^3/uL (150-450); Red Blood Count 2.34 10^6 /uL (3.70-4.87); Red Cell Distribution Width 17 % (10-15); White Blood Count 3.9 10^3/uL (3.5-10.8)
[2020-02-25 04:49] LABS: INR 2.59 (0.82-1.09)
[2020-02-25 05:01] LABS: Albumin 2.7 g/dL (3.2-5.2); Albumin/Globulin Ratio 1.4 (1-3); BUN/Creatinine Ratio 11.3 (8-20); Calcium 8.9 mg/dL (8.6-10.3); EGFR African American 54.5 (>60); EGFR Non-African American 45.1 (>60); Globulin 1.9 g/dL (2-4); Indirect Bilirubin 3.9 mg/dL (0.3-1.0); Total Bilirubin 7.4 mg/dL (0.2-1.0); Total Protein 4.6 g/dL (6.4-8.9)
[2020-02-25] MEDS: fentaNYL 100 mcg/2 ml 50 MCG/ML VIAL IV SLOW PU PRN ×3 (09:30→21:15)
[2020-02-25] MEDS: Pantoprazole VIAL 40 MG VIAL IV SCH (09:30)
[2020-02-25] MEDS ORDERED: WATER CENTR SCH (10:12)
[2020-02-25] MEDS ORDERED: DEXTROSE 50% CENTR SCH (10:12)
[2020-02-25] MEDS ORDERED: Potassium EFFERVES 25 meq TAB PO ONE (10:15)
[2020-02-25] MEDS ORDERED: Potassium Chlor 20 meq TAB.ER PO ONE (10:46)
[2020-02-25] MEDS ORDERED: Potassium Chloride IV 2 MEQ/ML 10 ML VIAL (20 MEQ) CENT\\PICC ONE (11:00)
[2020-02-25] MEDS: KCL 20 MEQ/100 ML IVPREMIX 20 MEQ/100 ML BAG IV SCH ×2 (11:36→14:10)
[2020-02-26] MEDS: ZOSYN 3.375 GM Q8H per EXTENDED INFUSION IV SCH ×3 (04:12→20:12)
[2020-02-26 04:24] LABS: ABS Eosinophils 0.2 10^3/ul (0-0.6); ABS Lymphocytes 0.8 10^3/ul (1.0-4.8); ABS Monocytes 1.1 10^3/ul (0-0.8); ABS Neutrophils 1.9 10^3/ul (1.5-7.7); Eosinophil % 5.4 %; Hematocrit 22 % (35-47); Hemoglobin 7.3 g/dL (12.0-16.0); Lymphocyte % 19.6 %; Mean Corpuscular HGB Conc 34 g/dL (31-36); Mean Corpuscular Hemoglobin 30 pg (27-31); Mean Corpuscular Volume 90 fL (80-97); Mean Platelet Volume 8.7 fL (7.4-10.4); Nucleated Red Blood Cells % 0.2; Platelet Count 58 10^3/uL (150-450); Red Blood Count 2.43 10^6 /uL (3.70-4.87); Red Cell Distribution Width 17 % (10-15); White Blood Count 4.1 10^3/uL (3.5-10.8)
[2020-02-26 04:26] LABS: INR 2.89 (0.82-1.09)
[2020-02-26 04:34] LABS: Albumin 2.7 g/dL (3.2-5.2); Albumin/Globulin Ratio 1.4 (1-3); BUN/Creatinine Ratio 10.8 (8-20); Calcium 8.8 mg/dL (8.6-10.3); EGFR Non-African American 51.2 (>60); Indirect Bilirubin 3.9 mg/dL (0.3-1.0); Potassium 3.9 mmol/L (3.5-5.0); Total Bilirubin 7.5 mg/dL (0.2-1.0); Total Protein 4.7 g/dL (6.4-8.9)
[2020-02-26] MEDS: Pantoprazole VIAL 40 MG VIAL IV SCH (10:25)
[2020-02-26] MEDS ORDERED: fentaNYL 100 mcg/2 ml 50 MCG/ML VIAL ONE (15:43)
[2020-02-27] MEDS: ZOSYN 3.375 GM Q8H per EXTENDED INFUSION IV SCH ×2 (03:59→13:15)
[2020-02-27 05:44] LABS: ABS Basophils 0.1 10^3/ul (0-0.2); ABS Eosinophils 0.2 10^3/ul (0-0.6); ABS Lymphocytes 0.8 10^3/ul (1.0-4.8); ABS Monocytes 1.2 10^3/ul (0-0.8); ABS Neutrophils 2.9 10^3/ul (1.5-7.7); Eosinophil % 3.1 %; Hematocrit 21 % (35-47); Hemoglobin 7.6 g/dL (12.0-16.0); Lymphocyte % 15.9 %; Mean Corpuscular HGB Conc 36 g/dL (31-36); Mean Corpuscular Hemoglobin 32 pg (27-31); Mean Corpuscular Volume 90 fL (80-97); Mean Platelet Volume 9.5 fL (7.4-10.4); Nucleated Red Blood Cells % 0.1; Platelet Count 71 10^3/uL (150-450); Red Blood Count 2.37 10^6 /uL (3.70-4.87); Red Cell Distribution Width 17 % (10-15); White Blood Count 5.2 10^3/uL (3.5-10.8)
[2020-02-27 05:52] LABS: Albumin 2.8 g/dL (3.2-5.2); Albumin/Globulin Ratio 1.3 (1-3); BUN/Creatinine Ratio 12.1 (8-20); Calcium 8.7 mg/dL (8.6-10.3); EGFR African American 64.7 (>60); EGFR Non-African American 53.4 (>60); Globulin 2.1 g/dL (2-4); Indirect Bilirubin 3.3 mg/dL (0.3-1.0); Potassium 3.6 mmol/L (3.5-5.0); Total Bilirubin 6.4 mg/dL (0.2-1.0); Total Protein 4.9 g/dL (6.4-8.9)
[2020-02-27 05:55] LABS: INR 2.68 (0.82-1.09)
[2020-02-27] MEDS: Pantoprazole VIAL 40 MG VIAL IV SCH (09:16)
[2020-02-27] MEDS: fentaNYL 100 mcg/2 ml 50 MCG/ML VIAL IV SLOW PU PRN (20:17)
[2020-02-28] MEDS: fentaNYL 100 mcg/2 ml 50 MCG/ML VIAL IV SLOW PU PRN ×2 (00:39→04:16)
[2020-02-28 06:26] LABS: ABS Basophils 0.1 10^3/ul (0-0.2); ABS Eosinophils 0.1 10^3/ul (0-0.6); ABS Lymphocytes 0.9 10^3/ul (1.0-4.8); ABS Monocytes 1.1 10^3/ul (0-0.8); ABS Neutrophils 3.2 10^3/ul (1.5-7.7); Eosinophil % 2.3 %; Hematocrit 22 % (35-47); Hemoglobin 7.5 g/dL (12.0-16.0); INR 2.75 (0.82-1.09); Lymphocyte % 17.5 %; Mean Corpuscular HGB Conc 35 g/dL (31-36); Mean Corpuscular Hemoglobin 31 pg (27-31); Mean Corpuscular Volume 91 fL (80-97); Mean Platelet Volume 9.2 fL (7.4-10.4); Platelet Count 78 10^3/uL (150-450); Red Cell Distribution Width 18 % (10-15); White Blood Count 5.4 10^3/uL (3.5-10.8)
[2020-02-28 06:37] LABS: Albumin 2.8 g/dL (3.2-5.2); Albumin/Globulin Ratio 1.2 (1-3); BUN/Creatinine Ratio 9.7 (8-20); Calcium 8.4 mg/dL (8.6-10.3); EGFR African American 60.7 (>60); EGFR Non-African American 50.2 (>60); Globulin 2.3 g/dL (2-4); Indirect Bilirubin 3.2 mg/dL (0.3-1.0); Potassium 3.2 mmol/L (3.5-5.0); Total Bilirubin 5.7 mg/dL (0.2-1.0); Total Protein 5.1 g/dL (6.4-8.9)
[2020-02-28] MEDS: Pantoprazole VIAL 40 MG VIAL IV SCH (08:38)
[2020-02-28] MEDS: Lactulose 30 ml UDC PO SCH ×2 (13:27→20:33)
[2020-02-28] MEDS ORDERED: HYDROcodone/ACETAMIN 5/325 mg TAB PO PRN (22:07)
[2020-02-28] MEDS: Benzocaine/Menthol LOZ MT PRN (22:24)
[2020-02-29] MEDS ORDERED: NS 0.9% 250 ml 250 ML IV ONE (03:53)
[2020-02-29 07:38] LABS: ABS Basophils 0.1 10^3/ul (0-0.2); ABS Eosinophils 0.1 10^3/ul (0-0.6); ABS Lymphocytes 1.1 10^3/ul (1.0-4.8); ABS Monocytes 0.9 10^3/ul (0-0.8); ABS Neutrophils 4.6 10^3/ul (1.5-7.7); Eosinophil % 1.1 %; Hematocrit 22 % (35-47); Hemoglobin 7.7 g/dL (12.0-16.0); Lymphocyte % 16.3 %; Mean Corpuscular HGB Conc 35 g/dL (31-36); Mean Corpuscular Hemoglobin 32 pg (27-31); Mean Corpuscular Volume 91 fL (80-97); Nucleated Red Blood Cells % 0.1; Platelet Count 86 10^3/uL (150-450); Red Blood Count 2.44 10^6 /uL (3.70-4.87); Red Cell Distribution Width 19 % (10-15); White Blood Count 6.8 10^3/uL (3.5-10.8)
[2020-02-29 07:44] LABS: Albumin 2.7 g/dL (3.2-5.2); Albumin/Globulin Ratio 1.2 (1-3); BUN/Creatinine Ratio 10.2 (8-20); Calcium 8.1 mg/dL (8.6-10.3); EGFR Non-African American 52.9 (>60); Globulin 2.3 g/dL (2-4); Indirect Bilirubin 3.1 mg/dL (0.3-1.0); Potassium 3.2 mmol/L (3.5-5.0); Total Bilirubin 5.3 mg/dL (0.2-1.0)
[2020-02-29 07:55] LABS: INR 2.8 (0.82-1.09)
[2020-02-29 08:26] LABS: Acanthocytes 1+; Burr Cells 2+
[2020-02-29 08:27] LABS: Schistocytes 1+
[2020-02-29] MEDS: Lactulose 30 ml UDC PO SCH ×4 (10:33→21:42)
[2020-02-29] MEDS: Pantoprazole VIAL 40 MG VIAL IV SCH (10:34)
[2020-02-29] MEDS: fentaNYL 100 mcg/2 ml 50 MCG/ML VIAL IV SLOW PU PRN (14:08)
[2020-02-29] MEDS ORDERED: Potassium Chloride LIQUID 20 MEQ/15 ML LIQUID PO ONE (14:09)
[2020-02-29] MEDS: Benzocaine/Menthol LOZ MT PRN (14:37)
[2020-03-01 06:56] LABS: Hematocrit 22 % (35-47); Hemoglobin 7.6 g/dL (12.0-16.0); Mean Corpuscular HGB Conc 35 g/dL (31-36); Mean Corpuscular Hemoglobin 32 pg (27-31); Mean Corpuscular Volume 91 fL (80-97); Mean Platelet Volume 8.7 fL (7.4-10.4); Platelet Count 98 10^3/uL (150-450); Red Cell Distribution Width 20 % (10-15); White Blood Count 5.5 10^3/uL (3.5-10.8)
[2020-03-01 07:13] LABS: Albumin 2.6 g/dL (3.2-5.2); Albumin/Globulin Ratio 1.1 (1-3); BUN/Creatinine Ratio 8.4 (8-20); EGFR African American 57.2 (>60); EGFR Non-African American 47.3 (>60); Globulin 2.3 g/dL (2-4); Potassium 3.7 mmol/L (3.5-5.0); Total Bilirubin 4.9 mg/dL (0.2-1.0); Total Protein 4.9 g/dL (6.4-8.9)
[2020-03-01] MEDS: Pantoprazole VIAL 40 MG VIAL IV SCH (07:26)
[2020-03-01] MEDS: Lactulose 30 ml UDC PO SCH ×3 (07:26→20:53)
[2020-03-01] MEDS: Benzocaine/Menthol LOZ MT PRN (15:07)
[2020-03-01] MEDS: Ondansetron 4 mg VIAL 2 MG/ML 2 ml VIAL IV PRN (20:57)
[2020-03-02 06:03] LABS: ABS Basophils 0.1 10^3/ul (0-0.2); ABS Eosinophils 0.1 10^3/ul (0-0.6); ABS Lymphocytes 0.9 10^3/ul (1.0-4.8); ABS Neutrophils 3.9 10^3/ul (1.5-7.7); Eosinophil % 1.1 %; Hematocrit 22 % (35-47); Hemoglobin 7.8 g/dL (12.0-16.0); Lymphocyte % 15.5 %; Mean Corpuscular HGB Conc 36 g/dL (31-36); Mean Corpuscular Hemoglobin 33 pg (27-31); Mean Corpuscular Volume 92 fL (80-97); Nucleated Red Blood Cells % 0.1; Platelet Count 110 10^3/uL (150-450); Red Blood Count 2.39 10^6 /uL (3.70-4.87); Red Cell Distribution Width 21 % (10-15)
[2020-03-02 06:09] LABS: INR 2.6 (0.82-1.09)
[2020-03-02 06:32] LABS: Albumin 2.5 g/dL (3.2-5.2); EGFR African American 45.9 (>60); EGFR Non-African American 37.9 (>60); Globulin 2.5 g/dL (2-4); Potassium 3.8 mmol/L (3.5-5.0); Total Bilirubin 5.3 mg/dL (0.2-1.0)
[2020-03-02] MEDS: Lactulose 30 ml UDC PO SCH ×3 (07:49→21:20)
[2020-03-02] MEDS: Ondansetron 4 mg VIAL 2 MG/ML 2 ml VIAL IV PRN (07:49)
[2020-03-02] MEDS: Pantoprazole VIAL 40 MG VIAL IV SCH (07:49)
[2020-03-02] MEDS: Benzocaine/Menthol LOZ MT PRN ×2 (15:16→21:22)
[2020-03-03] MEDS: Ondansetron 4 mg VIAL 2 MG/ML 2 ml VIAL IV PRN (03:53)
[2020-03-03] MEDS: Benzocaine/Menthol LOZ MT PRN (04:05)
[2020-03-03 06:58] LABS: ABS Basophils 0.1 10^3/ul (0-0.2); ABS Eosinophils 0.1 10^3/ul (0-0.6); ABS Lymphocytes 0.8 10^3/ul (1.0-4.8); ABS Monocytes 0.8 10^3/ul (0-0.8); ABS Neutrophils 3.3 10^3/ul (1.5-7.7); Eosinophil % 1.7 %; Hematocrit 22 % (35-47); Hemoglobin 7.8 g/dL (12.0-16.0); Lymphocyte % 15.6 %; Mean Corpuscular HGB Conc 36 g/dL (31-36); Mean Corpuscular Hemoglobin 33 pg (27-31); Mean Corpuscular Volume 92 fL (80-97); Nucleated Red Blood Cells % 0.2; Red Blood Count 2.39 10^6 /uL (3.70-4.87); Red Cell Distribution Width 22 % (10-15); White Blood Count 5.1 10^3/uL (3.5-10.8)
[2020-03-03 07:04] LABS: Albumin 2.4 g/dL (3.2-5.2); BUN/Creatinine Ratio 9.6 (8-20); Calcium 7.8 mg/dL (8.6-10.3); EGFR African American 41.5 (>60); EGFR Non-African American 34.3 (>60); Globulin 2.4 g/dL (2-4); Potassium 3.8 mmol/L (3.5-5.0); Total Protein 4.8 g/dL (6.4-8.9)
[2020-03-03 08:57] LABS: Mean Platelet Volume 9.2 fL (7.4-10.4); Platelet Count 120 10^3/uL (150-450)
[2020-03-03] MEDS: Pantoprazole VIAL 40 MG VIAL IV SCH (09:50)
[2020-03-03] MEDS: Lactulose 30 ml UDC PO SCH ×3 (09:50→21:06)
[2020-03-03 17:53] LABS: Ur Urea Nitrogen Concentration 356 mg/dL; Urine Creatinine Concentration 133.92 mg/dL; Urine Sodium Concentration < 18 mmol/L
[2020-03-04 07:21] LABS: BUN/Creatinine Ratio 9.9 (8-20); Blood Urea Nitrogen 17 mg/dL (6-24); CO2 Carbon Dioxide 17 mmol/L (22-32); Calcium 7.7 mg/dL (8.6-10.3); Chloride 101 mmol/L (101-111); EGFR African American 37.6 (>60); EGFR Non-African American 31.1 (>60); Glucose 83 mg/dL (70-100); Sodium 126 mmol/L (135-145)
[2020-03-04 07:22] LABS: Hematocrit 21 % (35-47); Hemoglobin 7.6 g/dL (12.0-16.0); Mean Corpuscular HGB Conc 36 g/dL (31-36); Mean Corpuscular Hemoglobin 33 pg (27-31); Mean Corpuscular Volume 92 fL (80-97); Red Blood Count 2.31 10^6 /uL (3.70-4.87); Red Cell Distribution Width 22 % (10-15); White Blood Count 5.1 10^3/uL (3.5-10.8)
[2020-03-04 08:03] LABS: ABS Eosinophils 0.1 10^3/ul (0-0.6); ABS Lymphocytes 0.9 10^3/ul (1.0-4.8); ABS Monocytes 1.1 10^3/ul (0-0.8); ABS Neutrophils 2.9 10^3/ul (1.5-7.7); Eosinophil % 2.4 %; Lymphocyte % 18.1 %; Platelet Count 141 10^3/uL (150-450)
[2020-03-04] MEDS: Pantoprazole VIAL 40 MG VIAL IV SCH (09:26)
[2020-03-04] MEDS: Lactulose 30 ml UDC PO SCH ×3 (09:34→19:55)
[2020-03-04 09:50] LABS: Anion Gap 8 mmol/L (2-11)
[2020-03-04] MEDS: Albumin Human 25% 25 GM/100 ML BTL IV SCH ×2 (10:26→18:34)
[2020-03-04 10:41] LABS: Potassium Redraw 3.7 mmol/L (3.5-5.0)
[2020-03-04] MEDS: Ondansetron 4 mg VIAL 2 MG/ML 2 ml VIAL IV PRN (11:04)
[2020-03-05 06:43] LABS: ALT 13 U/L (7-52); Albumin 2.3 g/dL (3.2-5.2); Alkaline Phosphatase 81 U/L (34-104); BUN/Creatinine Ratio 9.7 (8-20); Blood Urea Nitrogen 18 mg/dL (6-24); CO2 Carbon Dioxide 16 mmol/L (22-32); Calcium 7.6 mg/dL (8.6-10.3); Chloride 102 mmol/L (101-111); EGFR African American 34.4 (>60); EGFR Non-African American 28.4 (>60); Globulin 2.4 g/dL (2-4); Glucose 101 mg/dL (70-100); Sodium 125 mmol/L (135-145); Total Protein 4.7 g/dL (6.4-8.9)
[2020-03-05 06:54] LABS: Hematocrit 22 % (35-47); Hemoglobin 7.6 g/dL (12.0-16.0); Mean Corpuscular HGB Conc 35 g/dL (31-36); Mean Corpuscular Hemoglobin 32 pg (27-31); Mean Corpuscular Volume 93 fL (80-97); Red Blood Count 2.34 10^6 /uL (3.70-4.87); Red Cell Distribution Width 22 % (10-15); White Blood Count 4.7 10^3/uL (3.5-10.8)
[2020-03-05 06:57] LABS: Anion Gap 7 mmol/L (2-11)
[2020-03-05 07:49] LABS: ABS Basophils 0.1 10^3/ul (0-0.2); ABS Eosinophils 0.2 10^3/ul (0-0.6); ABS Lymphocytes 0.9 10^3/ul (1.0-4.8); ABS Neutrophils 2.5 10^3/ul (1.5-7.7); Eosinophil % 4.1 %; Lymphocyte % 19.7 %; Nucleated Red Blood Cells % 0.1; Platelet Count 140 10^3/uL (150-450)
[2020-03-05] MEDS: Pantoprazole VIAL 40 MG VIAL IV SCH (08:59)
[2020-03-05] MEDS: Lactulose 30 ml UDC PO SCH ×3 (09:00→20:49)
[2020-03-05] MEDS: Albumin Human 25% 25 GM/100 ML BTL IV SCH ×3 (09:16→22:02)
[2020-03-05 09:37] LABS: Total Iron Binding Capacity 127 mcg/dL (250-450); Transferrin 91 mg/dL (203-362)
[2020-03-05 09:56] LABS: Ferritin 316.4 ng/mL (11-307)
[2020-03-05 10:02] LABS: Potassium Redraw 3.9 mmol/L (3.5-5.0)
[2020-03-05] MEDS ORDERED: Albumin Human 25% 50 GM/200 ML BTL IV ONE (13:00)
[2020-03-05 16:55] LABS: Urine Appearance Clear; Urine Bilirubin Negative (Negative); Urine Blood Negative (Negative); Urine Color Yellow; Urine Glucose Negative (Negative); Urine Ketones Negative (Negative); Urine Nitrite Negative (Negative); Urine Protein Negative (Negative); Urine Specific Gravity 1.009 (1.010-1.030); Urine Urobilinogen Negative (Negative)
[2020-03-06 07:22] LABS: BUN/Creatinine Ratio 9.9 (8-20); Calcium 7.7 mg/dL (8.6-10.3); EGFR African American 40.1 (>60); EGFR Non-African American 33.1 (>60); Potassium 3.8 mmol/L (3.5-5.0)
[2020-03-06 09:33] LABS: Hematocrit 21 % (35-47); Hemoglobin 7.4 g/dL (12.0-16.0); Mean Corpuscular HGB Conc 36 g/dL (31-36); Mean Corpuscular Hemoglobin 33 pg (27-31); Mean Corpuscular Volume 93 fL (80-97); Red Blood Count 2.24 10^6 /uL (3.70-4.87); Red Cell Distribution Width 22 % (10-15); White Blood Count 3.6 10^3/uL (3.5-10.8)
[2020-03-06 09:58] LABS: Mean Platelet Volume 9.6 fL (7.4-10.4); Platelet Count 121 10^3/uL (150-450)
[2020-03-06] MEDS: Albumin Human 25% 25 GM/100 ML BTL IV SCH ×3 (10:11→21:48)
[2020-03-06] MEDS: Lactulose 30 ml UDC PO SCH ×3 (10:22→20:29)
[2020-03-06] MEDS: Pantoprazole VIAL 40 MG VIAL IV SCH (10:23)
[2020-03-06 10:30] LABS: ABS Basophils 0.1 10^3/ul (0-0.2); ABS Eosinophils 0.2 10^3/ul (0-0.6); ABS Lymphocytes 0.8 10^3/ul (1.0-4.8); ABS Monocytes 0.8 10^3/ul (0-0.8); ABS Neutrophils 1.8 10^3/ul (1.5-7.7); Eosinophil % 4.2 %; Lymphocyte % 21.7 %; Nucleated Red Blood Cells % 0.1
[2020-03-06] MEDS: Potassium Chlor 20 meq TAB.ER PO SCH (20:28)
[2020-03-07 06:33] LABS: ABS Basophils 0.1 10^3/ul (0-0.2); ABS Eosinophils 0.1 10^3/ul (0-0.6); ABS Lymphocytes 0.9 10^3/ul (1.0-4.8); ABS Monocytes 0.7 10^3/ul (0-0.8); ABS Neutrophils 1.8 10^3/ul (1.5-7.7); Eosinophil % 3.8 %; Hematocrit 22 % (35-47); Hemoglobin 7.6 g/dL (12.0-16.0); Lymphocyte % 25.4 %; Mean Corpuscular HGB Conc 35 g/dL (31-36); Mean Corpuscular Hemoglobin 33 pg (27-31); Mean Corpuscular Volume 94 fL (80-97); Mean Platelet Volume 9.3 fL (7.4-10.4); Nucleated Red Blood Cells % 0.2; Platelet Count 120 10^3/uL (150-450); Red Blood Count 2.32 10^6 /uL (3.70-4.87); Red Cell Distribution Width 22 % (10-15); White Blood Count 3.6 10^3/uL (3.5-10.8)
[2020-03-07 06:52] LABS: Calcium 8.1 mg/dL (8.6-10.3); EGFR African American 51.6 (>60); EGFR Non-African American 42.7 (>60)
[2020-03-07] MEDS: Pantoprazole VIAL 40 MG VIAL IV SCH (07:58)
[2020-03-07] MEDS: Lactulose 30 ml UDC PO SCH ×3 (07:58→20:09)
[2020-03-07] MEDS: Potassium Chlor 20 meq TAB.ER PO SCH ×2 (08:01→20:08)
[2020-03-08 06:12] LABS: BUN/Creatinine Ratio 9.2 (8-20); Calcium 7.9 mg/dL (8.6-10.3); EGFR African American 57.2 (>60); EGFR Non-African American 47.3 (>60); Potassium 4.3 mmol/L (3.5-5.0)
[2020-03-08] MEDS: Potassium Chlor 20 meq TAB.ER PO SCH ×2 (07:55→21:16)
[2020-03-08] MEDS: Lactulose 30 ml UDC PO SCH ×3 (07:55→21:17)
[2020-03-08] MEDS: Pantoprazole VIAL 40 MG VIAL IV SCH (07:57)
[2020-03-09 07:03] LABS: BUN/Creatinine Ratio 9.6 (8-20); Calcium 7.9 mg/dL (8.6-10.3); EGFR Non-African American 44.7 (>60); Potassium 4.3 mmol/L (3.5-5.0)
[2020-03-09] MEDS: Pantoprazole VIAL 40 MG VIAL IV SCH (10:01)
[2020-03-09] MEDS: Lactulose 30 ml UDC PO SCH ×3 (10:02→20:38)
[2020-03-09] MEDS: Potassium Chlor 20 meq TAB.ER PO SCH ×2 (10:03→20:40)
[2020-03-10] MEDS: Lactulose 30 ml UDC PO SCH ×3 (07:50→20:38)
[2020-03-10] MEDS: Pantoprazole VIAL 40 MG VIAL IV SCH (07:50)
[2020-03-10] MEDS: Potassium Chlor 20 meq TAB.ER PO SCH ×2 (07:52→20:38)
[2020-03-10] MEDS: Albumin Human 25% 25 GM/100 ML IV SCH ×3 (13:15→15:39)
[2020-03-11 09:02] LABS: Calcium 8.1 mg/dL (8.6-10.3)
[2020-03-11 09:08] LABS: BUN/Creatinine Ratio 9.6 (8-20); EGFR African American 49.4 (>60); EGFR Non-African American 40.9 (>60)
[2020-03-11] MEDS: Pantoprazole VIAL 40 MG VIAL IV SCH (09:19)
[2020-03-11] MEDS: Lactulose 30 ml UDC PO SCH ×2 (09:19→14:13)
[2020-03-11] MEDS: Potassium Chlor 20 meq TAB.ER PO SCH (09:20)
[2020-03-11 12:06] VITALS: BP 102/53
== END 2020-03-11 15:15 | disposition home or self-care (01) | DRG 720 ==
LOC: ED 23:17 → ICU 02-19 08:33 → MED 02-26 12:17
PROVIDERS: ADMIT Internal Medicine; ATTEND Internal Medicine

== ENCOUNTER 2020-07-10 15:40 | Observation (INO) ==
[2020-07-10] MEDS ORDERED: Dexamethasone IV 4 MG/ML VIAL 1 ml VIAL IV SLOW PU ONE (16:00)
[2020-07-10] MEDS ORDERED: NS 0.9% 1000 ml BAG 1,000 ML IV ONE (17:40)
[2020-07-10 18:26] LABS: Hematocrit 27 % (35-47); Hemoglobin 8.9 g/dL (12.0-16.0); Mean Corpuscular HGB Conc 33 g/dL (31-36); Mean Corpuscular Hemoglobin 30 pg (27-31); Mean Corpuscular Volume 89 fL (80-97); Mean Platelet Volume 9.7 fL (7.4-10.4); Platelet Count 102 10^3/uL (150-450); Red Blood Count 3.02 10^6 /uL (3.70-4.87); Red Cell Distribution Width 18 % (10-15); White Blood Count 3.6 10^3/uL (3.5-10.8)
[2020-07-10 18:27] LABS: Nucleated Red Blood Cells % 0.3
[2020-07-10 18:39] LABS: INR 1.71 (0.82-1.09)
[2020-07-10 18:44] LABS: Albumin 2.9 g/dL (3.2-5.2); Albumin/Globulin Ratio 1.2 (1-3); BUN/Creatinine Ratio 13.8 (8-20); Calcium 8.1 mg/dL (8.6-10.3); EGFR African American 58.7 (>60); EGFR Non-African American 48.5 (>60); Globulin 2.4 g/dL (2-4); Total Bilirubin 3.1 mg/dL (0.2-1.0); Total Protein 5.3 g/dL (6.4-8.9)
[2020-07-10 18:50] LABS: Potassium 4.7 mmol/L (3.5-5.0)
[2020-07-10 19:02] LABS: C Reactive Protein 7.66 mg/L (<8.01)
[2020-07-10 19:12] LABS: Phosphorus 4.4 mg/dL (2.5-5.0)
[2020-07-10 19:13] LABS: ABS Basophils 0.2 10^3/ul (0-0.2); ABS Lymphocytes 0.3 10^3/ul (1.0-4.8); ABS Monocytes 0.2 10^3/ul (0-0.8); ABS Neutrophils 2.9 10^3/ul (1.5-7.7); Eosinophil % 1.2 %; Lymphocyte % 7.8 %
[2020-07-11] MEDS: Sodium Bicarb 650 mg (ANTACID) TAB PO SCH (08:34)
[2020-07-11] MEDS: Lactulose 30 ml UDC PO SCH ×3 (08:34→21:57)
[2020-07-11] MEDS ORDERED: Ondansetron 4 mg VIAL 2 MG/ML 2 ml VIAL ONE (15:06)
[2020-07-11] MEDS: Ondansetron 4 mg VIAL 2 MG/ML 2 ml VIAL IV PRN (15:13)
[2020-07-12] MEDS: Sodium Bicarb 650 mg (ANTACID) TAB PO SCH (09:00)
[2020-07-12] MEDS: Lactulose 30 ml UDC PO SCH ×3 (09:03→22:16)
[2020-07-13] MEDS: Ondansetron 4 mg VIAL 2 MG/ML 2 ml VIAL IV PRN (08:00)
[2020-07-13] MEDS: Sodium Bicarb 650 mg (ANTACID) TAB PO SCH (09:08)
[2020-07-13] MEDS: Lactulose 30 ml UDC PO SCH ×2 (11:04→14:12)
[2020-07-13 15:37] VITALS: BP 82/47
== END 2020-07-13 17:55 | disposition home or self-care (01) ==
LOC: SSU 15:40 → ED 15:40
PROVIDERS: ADMIT Internal Medicine; ATTEND Internal Medicine

== ENCOUNTER 2020-07-14 11:08 | Inpatient (IN) ==
[2020-07-14] MEDS ORDERED: Morphine 4 MG/ML VIAL (1 ml) IV ONE (11:13)
[2020-07-14] MEDS ORDERED: NS 0.9% 1000 ml BAG 1,000 ML IV ONE (12:00)
[2020-07-14 12:54] LABS: ABS Lymphocytes 0.6 10^3/ul (1.0-4.8); ABS Monocytes 1.5 10^3/ul (0-0.8); ABS Neutrophils 6.3 10^3/ul (1.5-7.7); Eosinophil % 0.6 %; Hematocrit 29 % (35-47); Hemoglobin 9.7 g/dL (12.0-16.0); Lymphocyte % 6.8 %; Mean Corpuscular HGB Conc 34 g/dL (31-36); Mean Corpuscular Hemoglobin 29 pg (27-31); Mean Corpuscular Volume 87 fL (80-97); Mean Platelet Volume 8.6 fL (7.4-10.4); Nucleated Red Blood Cells % 0.1; Platelet Count 101 10^3/uL (150-450); Red Cell Distribution Width 18 % (10-15); White Blood Count 8.4 10^3/uL (3.5-10.8)
[2020-07-14 12:55] LABS: INR 1.55 (0.82-1.09)
[2020-07-14 13:07] LABS: Albumin 2.8 g/dL (3.2-5.2); Albumin/Globulin Ratio 1.2 (1-3); BUN/Creatinine Ratio 19.8 (8-20); Calcium 8.5 mg/dL (8.6-10.3); EGFR African American 23.9 (>60); EGFR Non-African American 19.7 (>60); Globulin 2.4 g/dL (2-4); Potassium 3.7 mmol/L (3.5-5.0); Total Bilirubin 2.6 mg/dL (0.2-1.0); Total Protein 5.2 g/dL (6.4-8.9)
[2020-07-14] MEDS ORDERED: Morphine 2 MG/ML SYRINGE IV ONE (13:17)
[2020-07-14] MEDS ORDERED: Ondansetron 4 mg VIAL 2 MG/ML 2 ml VIAL IV PRN (14:16)
[2020-07-14] MEDS ORDERED: NS 0.9% 1000 ml BAG 1,000 ML IV SCH (14:30)
[2020-07-14] MEDS: Lactulose 30 ml UDC PO SCH ×2 (16:18→20:46)
[2020-07-14] MEDS ORDERED: Heparin 5000 UNITS/ML 1 mL VIAL SUBCUT SCH (22:00)
[2020-07-15 06:04] LABS: Calcium 7.9 mg/dL (8.6-10.3); EGFR African American 36.3 (>60); Potassium 3.6 mmol/L (3.5-5.0)
[2020-07-15 06:23] LABS: ABS Eosinophils 0.1 10^3/ul (0-0.6); ABS Lymphocytes 0.8 10^3/ul (1.0-4.8); ABS Monocytes 1.3 10^3/ul (0-0.8); ABS Neutrophils 3.8 10^3/ul (1.5-7.7); Eosinophil % 2.5 %; Hematocrit 26 % (35-47); Hemoglobin 8.7 g/dL (12.0-16.0); Lymphocyte % 13.5 %; Mean Corpuscular HGB Conc 33 g/dL (31-36); Mean Corpuscular Hemoglobin 29 pg (27-31); Mean Corpuscular Volume 88 fL (80-97); Nucleated Red Blood Cells % 0.2; Red Blood Count 2.98 10^6 /uL (3.70-4.87); Red Cell Distribution Width 18 % (10-15)
[2020-07-15 07:49] LABS: Mean Platelet Volume 8.7 fL (7.4-10.4); Platelet Count 84 10^3/uL (150-450)
[2020-07-15 08:34] LABS: Urine Appearance Cloudy; Urine Bilirubin Negative (Negative); Urine Blood Negative (Negative); Urine Color Yellow; Urine Glucose Negative (Negative); Urine Ketones Negative (Negative); Urine Nitrite Negative (Negative); Urine Protein Negative (Negative); Urine Specific Gravity 1.013 (1.010-1.030); Urine Urobilinogen Negative (Negative)
[2020-07-15 10:17] LABS: Activated Partial Thrombo Time 35.8 seconds (26.0-38.0); INR 1.53 (0.82-1.09)
[2020-07-15] MEDS ORDERED: Lidocaine 2% PF 5 ML VIAL ONE (13:35)
[2020-07-15] MEDS ORDERED: Midazolam 5 mg/5 ml VIAL 1 mg/ml 5 ml VIAL (5 mg) ONE (13:35)
[2020-07-15] MEDS ORDERED: Propofol 10 MG/ML 20 ML BTL ONE (13:35)
[2020-07-15] MEDS ORDERED: Ondansetron 4 mg VIAL 2 MG/ML 2 ml VIAL ONE (13:35)
[2020-07-15] MEDS ORDERED: Cisatracurium 2 MG/ML MDV 5 ML ONE (13:35)
[2020-07-15] MEDS ORDERED: fentaNYL 100 mcg/2 ml 50 MCG/ML VIAL ONE ×2 (13:35→18:11)
[2020-07-15] MEDS ORDERED: Phenylephrine IV 10 MG/ML 1 ml VIAL ONE (13:35)
[2020-07-15] MEDS ORDERED: Dexamethasone IV 4 MG/ML VIAL 1 ml VIAL ONE (13:35)
[2020-07-15] MEDS ORDERED: Ketamine HCL 50 mg/ml 10 ml VIAL (500 MG) ONE (13:35)
[2020-07-15] MEDS ORDERED: ceFAZolin 2 GM PREMIX 2 GM/50 ML BAG ONE (13:42)
[2020-07-15] MEDS: Sodium Bicarb 650 mg (ANTACID) TAB PO SCH ×2 (13:56→22:49)
[2020-07-15] MEDS: Potassium Chlor 10 meq TAB PO SCH (13:56)
[2020-07-15] MEDS: Lactulose 30 ml UDC PO SCH ×3 (13:56→22:37)
[2020-07-15] MEDS ORDERED: Lactated Ringers 1000 ml BAG 1,000 ML IV SCH (14:00)
[2020-07-15] MEDS ORDERED: Buffered Lidocaine 1% SYRIN 1 ml INTRADERM ONE (14:00)
[2020-07-15] MEDS ORDERED: Famotidine IV 10 MG/ML 2 ml VIAL (20 mg) IV ONE (14:00)
[2020-07-15] MEDS ORDERED: Famotidine IV 10 MG/ML 2 ml VIAL (20 mg) ONE (14:08)
[2020-07-15] MEDS ORDERED: HYDROmorphone 1 MG/1 ML SYRINGE ONE (15:19)
[2020-07-15] MEDS ORDERED: Neostigmine Methylsulfate 1 MG/ML 10 ML VIAL (1 mg/ml) ONE (15:21)
[2020-07-15] MEDS ORDERED: Glycopyrrolate IV 0.2 MG/ML 1 ML VIAL ONE (15:21)
[2020-07-15] MEDS ORDERED: fentaNYL 100 mcg/2 ml 50 MCG/ML VIAL IV PRN (15:52)
[2020-07-15] MEDS ORDERED: DiMENhydriNATE IV 50 mg/ml 1 ml VIAL IV PUSH PRN ×2 (15:52→17:11)
[2020-07-15] MEDS ORDERED: Naloxone 0.4 mg VIAL 0.4 mg/ml 1 ml VIAL IV PRN ×2 (15:52→17:11)
[2020-07-15 16:08] LABS: ABS Eosinophils 0.2 10^3/ul (0-0.6); ABS Lymphocytes 0.7 10^3/ul (1.0-4.8); ABS Monocytes 1.5 10^3/ul (0-0.8); ABS Neutrophils 4.9 10^3/ul (1.5-7.7); Eosinophil % 3.3 %; Hematocrit 26 % (35-47); Hemoglobin 8.6 g/dL (12.0-16.0); Lymphocyte % 9.7 %; Mean Corpuscular HGB Conc 34 g/dL (31-36); Mean Corpuscular Hemoglobin 30 pg (27-31); Mean Corpuscular Volume 88 fL (80-97); Mean Platelet Volume 8.7 fL (7.4-10.4); Nucleated Red Blood Cells % 0.2; Platelet Count 86 10^3/uL (150-450); Red Blood Count 2.89 10^6 /uL (3.70-4.87); Red Cell Distribution Width 18 % (10-15); White Blood Count 7.3 10^3/uL (3.5-10.8)
[2020-07-15] MEDS: fentaNYL 100 mcg/2 ml 50 MCG/ML VIAL IV PRN ×2 (18:12→18:27)
[2020-07-15] MEDS: ceFAZolin 1 GM X 3 DOSES POST-OP Q8H (AddVan) IVPB SCH (22:38)
[2020-07-16] MEDS ORDERED: NS 0.9% 250 ml 250 ML IV ONE (00:05)
[2020-07-16] MEDS: ceFAZolin 1 GM X 3 DOSES POST-OP Q8H (AddVan) IVPB SCH ×2 (05:58→14:25)
[2020-07-16] MEDS: NS 0.9% 1000 ml BAG 1,000 ML IV SCH (06:20)
[2020-07-16 06:33] LABS: Hematocrit 23 % (35-47); Hemoglobin 7.5 g/dL (12.0-16.0); Platelet Count 84 10^3/uL (150-450)
[2020-07-16 06:42] LABS: BUN/Creatinine Ratio 21.8 (8-20); Calcium 8.1 mg/dL (8.6-10.3); EGFR African American 31.9 (>60); EGFR Non-African American 26.3 (>60); Potassium 4.7 mmol/L (3.5-5.0)
[2020-07-16] MEDS: Lactulose 30 ml UDC PO SCH ×3 (08:56→22:36)
[2020-07-16] MEDS: Sodium Bicarb 650 mg (ANTACID) TAB PO SCH (08:58)
[2020-07-16] MEDS ORDERED: Enoxaparin 30 MG/0.3 ML SYR SUBCUT SCH (09:00)
[2020-07-16] MEDS: Potassium Chlor 10 meq TAB PO SCH (09:00)
[2020-07-16 11:38] LABS: Hematocrit 22 % (35-47); Hemoglobin 7.4 g/dL (12.0-16.0); Mean Corpuscular HGB Conc 33 g/dL (31-36); Mean Corpuscular Hemoglobin 30 pg (27-31); Mean Corpuscular Volume 90 fL (80-97); Mean Platelet Volume 9.5 fL (7.4-10.4); Platelet Count 89 10^3/uL (150-450); Red Blood Count 2.46 10^6 /uL (3.70-4.87); Red Cell Distribution Width 18 % (10-15); White Blood Count 13.9 10^3/uL (3.5-10.8)
[2020-07-16 23:43] LABS: Hematocrit 22 % (35-47); Hemoglobin 7.1 g/dL (12.0-16.0)
[2020-07-17] MEDS: NS 0.9% 1000 ml BAG 1,000 ML IV SCH ×3 (05:31→20:46)
[2020-07-17] MEDS ORDERED: Octreotide Acetate 500 MCG/ML 1 ML VIAL IV ONE (06:41)
[2020-07-17 06:43] LABS: Hematocrit 19 % (35-47); Hemoglobin 6.2 g/dL (12.0-16.0); Mean Corpuscular HGB Conc 33 g/dL (31-36); Mean Corpuscular Hemoglobin 30 pg (27-31); Mean Corpuscular Volume 90 fL (80-97); Mean Platelet Volume 9.3 fL (7.4-10.4); Platelet Count 89 10^3/uL (150-450); Red Blood Count 2.08 10^6 /uL (3.70-4.87); Red Cell Distribution Width 19 % (10-15)
[2020-07-17] MEDS ORDERED: Pantoprazole 80 mg in NS BAG 80 MG/250 ML BAG IV SCH (07:00)
[2020-07-17] MEDS ORDERED: Octreotide Acetate 50 MCG in NS 0.9% 50 ML IV ONE (07:00)
[2020-07-17 07:01] LABS: BUN/Creatinine Ratio 20.8 (8-20); Calcium 7.8 mg/dL (8.6-10.3); EGFR African American 21.8 (>60); Magnesium 2.6 mg/dL (1.9-2.7); Potassium 4.9 mmol/L (3.5-5.0)
[2020-07-17] MEDS ORDERED: Octreotide Acetate 50 MCG in NS 0.9% 50 ML 50 ML IV ONE (07:13)
[2020-07-17] MEDS: Octreotide Acetate 500 MCG in NS 0.9% 100 ml BAG 100 ML IV SCH ×2 (07:47→20:45)
[2020-07-17] MEDS ORDERED: Sodium Bicarb 8.4% Vial 50 ML 150 MEQ in D5W 1000 ml BAG 850 ML IV SCH (08:00)
[2020-07-17] MEDS: Sodium Bicarb 8.4% Vial 50 ML 150 MEQ in D5W 1000 ml BAG 850 ML IV SCH (08:31)
[2020-07-17] MEDS: Pantoprazole VIAL 40 MG VIAL IV SCH ×2 (09:36→20:45)
[2020-07-17] MEDS: Potassium Chlor 10 meq TAB PO SCH (09:52)
[2020-07-17] MEDS: Lactulose 30 ml UDC PO SCH ×3 (09:52→22:35)
[2020-07-17] MEDS: Sodium Bicarb 650 mg (ANTACID) TAB PO SCH (09:52)
[2020-07-17 10:02] LABS: ABS Lymphocytes 1.1 10^3/ul (1.0-4.8); ABS Monocytes 2.1 10^3/ul (0-0.8); ABS Neutrophils 11.8 10^3/ul (1.5-7.7); ABS Nucleated RBC 0.1 10^3/ul; Lymphocyte % 7.1 %; Nucleated Red Blood Cells % 0.9
[2020-07-17] MEDS: cefTRIAXone 1 gm/50 mL NS BAG 1 GM/50 ML BAG IVPB SCH (10:46)
[2020-07-17] MEDS ORDERED: [UNRECOGNIZED DRUG - OTHER] INTRADERM ONE (12:00)
[2020-07-17] MEDS ORDERED: Midazolam 10 mg/10 ml VIAL 1 mg/ml 10 ml VIAL (10 mg) ONE (13:37)
[2020-07-17] MEDS ORDERED: fentaNYL 100 mcg/2 ml 50 MCG/ML VIAL ONE (13:37)
[2020-07-17] MEDS ORDERED: NS 0.9% 500 ml BAG 500 ML IV ONE (14:50)
[2020-07-17] MEDS ORDERED: Ondansetron 4 mg VIAL 2 MG/ML 2 ml VIAL IV SCH (15:00)
[2020-07-17] MEDS ORDERED: Lidocaine 1% VIAL 10 MG/ML VIAL ONE (15:18)
[2020-07-17 15:42] LABS: Hematocrit 28 % (35-47); Hemoglobin 9.1 g/dL (12.0-16.0); Mean Corpuscular HGB Conc 33 g/dL (31-36); Mean Corpuscular Hemoglobin 29 pg (27-31); Mean Corpuscular Volume 88 fL (80-97); Mean Platelet Volume 8.6 fL (7.4-10.4); Platelet Count 78 10^3/uL (150-450); Red Blood Count 3.12 10^6 /uL (3.70-4.87); Red Cell Distribution Width 17 % (10-15); White Blood Count 11.3 10^3/uL (3.5-10.8)
[2020-07-17 16:13] LABS: BUN/Creatinine Ratio 20.9 (8-20); Calcium 7.8 mg/dL (8.6-10.3); EGFR African American 19.9 (>60); EGFR Non-African American 16.5 (>60)
[2020-07-17 16:15] LABS: Potassium 5.2 mmol/L (3.5-5.0)
[2020-07-17] MEDS: Metoclopramide 5 MG/ML VIAL (10 mg) IV SCH ×2 (17:16→22:38)
[2020-07-18] MEDS: Sodium Bicarb 8.4% Vial 50 ML 150 MEQ in D5W 1000 ml BAG 850 ML IV SCH ×3 (02:04→10:43)
[2020-07-18] MEDS: NS 0.9% 1000 ml BAG 1,000 ML IV SCH ×2 (03:28→10:13)
[2020-07-18] MEDS: Pantoprazole VIAL 40 MG VIAL IV SCH ×2 (05:38→21:02)
[2020-07-18] MEDS: Octreotide Acetate 500 MCG in NS 0.9% 100 ml BAG 100 ML IV SCH ×2 (05:38→15:55)
[2020-07-18] MEDS: Metoclopramide 5 MG/ML VIAL (10 mg) IV SCH ×4 (05:38→22:40)
[2020-07-18 06:05] LABS: BUN/Creatinine Ratio 23.8 (8-20); Calcium 7.1 mg/dL (8.6-10.3); EGFR African American 23.1 (>60); EGFR Non-African American 19.1 (>60); Magnesium 2.4 mg/dL (1.9-2.7); Potassium 4.7 mmol/L (3.5-5.0)
[2020-07-18 06:09] LABS: Hematocrit 23 % (35-47); Hemoglobin 8.1 g/dL (12.0-16.0); Mean Corpuscular HGB Conc 35 g/dL (31-36); Mean Corpuscular Hemoglobin 30 pg (27-31); Mean Corpuscular Volume 86 fL (80-97); Mean Platelet Volume 9.5 fL (7.4-10.4); Platelet Count 53 10^3/uL (150-450); Red Blood Count 2.69 10^6 /uL (3.70-4.87); Red Cell Distribution Width 17 % (10-15); White Blood Count 5.3 10^3/uL (3.5-10.8)
[2020-07-18] MEDS: Lactulose 30 ml UDC PO SCH ×3 (09:51→21:02)
[2020-07-18] MEDS: Potassium Chlor 10 meq TAB PO SCH (10:40)
[2020-07-18] MEDS: Sodium Bicarb 650 mg (ANTACID) TAB PO SCH (10:40)
[2020-07-18] MEDS: cefTRIAXone 1 gm/50 mL NS BAG 1 GM/50 ML BAG IVPB SCH (10:43)
[2020-07-19] MEDS: Octreotide Acetate 500 MCG in NS 0.9% 100 ml BAG 100 ML IV SCH ×2 (02:45→13:21)
[2020-07-19] MEDS: Pantoprazole VIAL 40 MG VIAL IV SCH ×2 (09:40→21:45)
[2020-07-19] MEDS: Lactulose 30 ml UDC PO SCH ×3 (09:41→21:50)
[2020-07-19] MEDS: Sodium Bicarb 650 mg (ANTACID) TAB PO SCH (09:43)
[2020-07-19] MEDS: Potassium Chlor 10 meq TAB PO SCH (09:43)
[2020-07-19] MEDS: cefTRIAXone 1 gm/50 mL NS BAG 1 GM/50 ML BAG IVPB SCH (11:33)
[2020-07-19 16:52] LABS: ABS Lymphocytes 1.1 10^3/ul (1.0-4.8); ABS Monocytes 0.9 10^3/ul (0-0.8); ABS Neutrophils 4.1 10^3/ul (1.5-7.7); Eosinophil % 0.8 %; Hematocrit 25 % (35-47); Hemoglobin 8.1 g/dL (12.0-16.0); Lymphocyte % 17.6 %; Mean Corpuscular HGB Conc 33 g/dL (31-36); Mean Corpuscular Hemoglobin 29 pg (27-31); Mean Corpuscular Volume 89 fL (80-97); Mean Platelet Volume 8.7 fL (7.4-10.4); Nucleated Red Blood Cells % 0.1; Platelet Count 61 10^3/uL (150-450); Red Blood Count 2.77 10^6 /uL (3.70-4.87); Red Cell Distribution Width 18 % (10-15); White Blood Count 6.1 10^3/uL (3.5-10.8)
[2020-07-19] MEDS: Enoxaparin 30 MG/0.3 ML SYR SUBCUT SCH (21:42)
[2020-07-19] MEDS: Lidocaine Patch REMOVE PATCH PATCH OFF SCH (21:51)
[2020-07-19] MEDS ORDERED: NS 0.9% 100 ml BAG 100 ML ONE (23:57)
[2020-07-20] MEDS: Octreotide Acetate 500 MCG in NS 0.9% 100 ml BAG 100 ML IV SCH ×3 (00:19→14:27)
[2020-07-20 05:57] LABS: Hematocrit 25 % (35-47); Hemoglobin 8.5 g/dL (12.0-16.0)
[2020-07-20 06:01] LABS: INR 2.09 (0.82-1.09)
[2020-07-20 06:08] LABS: BUN/Creatinine Ratio 26.4 (8-20); Calcium 7.4 mg/dL (8.6-10.3); EGFR African American 44.3 (>60); EGFR Non-African American 36.6 (>60); Potassium 3.6 mmol/L (3.5-5.0)
[2020-07-20] MEDS: Sodium Bicarb 650 mg (ANTACID) TAB PO SCH (08:01)
[2020-07-20] MEDS: Pantoprazole VIAL 40 MG VIAL IV SCH ×2 (08:01→20:08)
[2020-07-20] MEDS: Lactulose 30 ml UDC PO SCH ×3 (08:06→20:07)
[2020-07-20] MEDS: Potassium Chlor 10 meq TAB PO SCH (08:06)
[2020-07-20] MEDS: Lidocaine PATCH 5% PATCH TRANSDERM SCH (08:08)
[2020-07-20] MEDS: Calcitonin NASAL(NF) 200 UNITS/SPRAY NASAL.SPR ALT NARE SCH (09:15)
[2020-07-20] MEDS: cefTRIAXone 1 gm/50 mL NS BAG 1 GM/50 ML BAG IVPB SCH (10:00)
[2020-07-20 18:28] LABS: Hematocrit 31 % (35-47); Hemoglobin 10.2 g/dL (12.0-16.0)
[2020-07-20] MEDS: Enoxaparin 30 MG/0.3 ML SYR SUBCUT SCH (20:10)
[2020-07-20] MEDS: Lidocaine Patch REMOVE PATCH PATCH OFF SCH (20:12)
[2020-07-21 06:18] LABS: Hematocrit 25 % (35-47); Hemoglobin 8.4 g/dL (12.0-16.0)
[2020-07-21 06:47] LABS: BUN/Creatinine Ratio 23.9 (8-20); Calcium 7.3 mg/dL (8.6-10.3); EGFR African American 58.1 (>60); Potassium 3.4 mmol/L (3.5-5.0)
[2020-07-21] MEDS ORDERED: Potassium Chloride LIQUID 20 MEQ/15 ML LIQUID PO ONE (08:31)
[2020-07-21] MEDS: Calcitonin NASAL(NF) 200 UNITS/SPRAY NASAL.SPR ALT NARE SCH (08:36)
[2020-07-21] MEDS: Lactulose 30 ml UDC PO SCH ×3 (08:38→20:23)
[2020-07-21] MEDS: Potassium Chlor 10 meq TAB PO SCH (08:39)
[2020-07-21] MEDS: Sodium Bicarb 650 mg (ANTACID) TAB PO SCH (08:40)
[2020-07-21] MEDS: Lidocaine PATCH 5% PATCH TRANSDERM SCH (08:42)
[2020-07-21] MEDS: Pantoprazole VIAL 40 MG VIAL IV SCH (08:43)
[2020-07-21 08:53] LABS: Magnesium 2.1 mg/dL (1.9-2.7)
[2020-07-21] MEDS: cefTRIAXone 1 gm/50 mL NS BAG 1 GM/50 ML BAG IVPB SCH (10:46)
[2020-07-21] MEDS: Lidocaine Patch REMOVE PATCH PATCH OFF SCH (20:23)
[2020-07-21] MEDS ORDERED: Morphine 2 MG/ML SYRINGE IV ONE (23:50)
[2020-07-22 06:45] LABS: BUN/Creatinine Ratio 21.3 (8-20); Calcium 7.6 mg/dL (8.6-10.3); EGFR African American 63.7 (>60); EGFR Non-African American 52.7 (>60); Potassium 3.6 mmol/L (3.5-5.0)
[2020-07-22] MEDS: Potassium Chlor 10 meq TAB PO SCH (08:46)
[2020-07-22] MEDS: Sodium Bicarb 650 mg (ANTACID) TAB PO SCH (08:46)
[2020-07-22] MEDS: Lactulose 30 ml UDC PO SCH ×3 (08:48→21:27)
[2020-07-22] MEDS: Calcitonin NASAL(NF) 200 UNITS/SPRAY NASAL.SPR ALT NARE SCH (08:49)
[2020-07-22] MEDS: cefTRIAXone 1 gm/50 mL NS BAG 1 GM/50 ML BAG IVPB SCH (10:46)
[2020-07-22 12:21] LABS: Urine Appearance Cloudy; Urine Bilirubin Negative (Negative); Urine Blood Negative (Negative); Urine Color Amber; Urine Glucose Negative (Negative); Urine Ketones Negative (Negative); Urine Nitrite Negative (Negative); Urine Protein Negative (Negative); Urine Specific Gravity 1.014 (1.010-1.030); Urine Urobilinogen Negative (Negative)
[2020-07-22] MEDS: Lidocaine PATCH 5% PATCH TRANSDERM SCH (12:28)
[2020-07-22 12:35] LABS: Urine Bacteria Absent (Absent); Urine Red Blood Cell Trace(0-2/hpf) (Absent); Urine Squamous Epithelial Cell Present (Absent); Urine White Blood Cell 2+(11-20/hpf) (Absent)
[2020-07-22] MEDS: Lidocaine Patch REMOVE PATCH PATCH OFF SCH (21:31)
[2020-07-23 05:23] LABS: Hematocrit 25 % (35-47); Hemoglobin 8.6 g/dL (12.0-16.0)
[2020-07-23 08:49] VITALS: BP 105/57
[2020-07-23] MEDS: Potassium Chlor 10 meq TAB PO SCH (09:19)
[2020-07-23] MEDS: Sodium Bicarb 650 mg (ANTACID) TAB PO SCH (09:19)
[2020-07-23 09:21] LABS: ABS Eosinophils 0.4 10^3/ul (0-0.6); ABS Lymphocytes 0.7 10^3/ul (1.0-4.8); ABS Neutrophils 5.2 10^3/ul (1.5-7.7); Eosinophil % 5.1 %; Lymphocyte % 9.5 %; Mean Corpuscular HGB Conc 33 g/dL (31-36); Mean Corpuscular Hemoglobin 30 pg (27-31); Mean Corpuscular Volume 90 fL (80-97); Mean Platelet Volume 8.9 fL (7.4-10.4); Nucleated Red Blood Cells % 0.3; Platelet Count 60 10^3/uL (150-450); Red Blood Count 2.88 10^6 /uL (3.70-4.87); Red Cell Distribution Width 19 % (10-15); White Blood Count 7.3 10^3/uL (3.5-10.8)
[2020-07-23] MEDS: Lactulose 30 ml UDC PO SCH (09:21)
[2020-07-23] MEDS: Calcitonin NASAL(NF) 200 UNITS/SPRAY NASAL.SPR ALT NARE SCH (09:22)
[2020-07-23] MEDS: Lidocaine PATCH 5% PATCH TRANSDERM SCH (09:22)
== END 2020-07-23 10:00 | DRG 308 ==
LOC: ED 11:08 → SSU 14:16 → UNDODISIN 07-15 16:59 → SSU 07-15 19:44 → ICU 07-17 08:49 → SSU 07-18 15:31
PROVIDERS: ADMIT Hospitalist; ATTEND Internal Medicine

== ENCOUNTER 2020-07-22 14:54 | Inpatient (IN) ==
[2020-07-23] MEDS ORDERED: Al Hydrox/Mg Hydrox/Simet LIQ 30 ML UDC PO PRN (07:29)
[2020-07-23] MEDS ORDERED: Ondansetron ODT 4 mg TAB 4 MG TAB SL PRN (07:47)
[2020-07-23] MEDS: cefTRIAXone 1 gm/50 mL NS BAG 1 GM/50 ML BAG IVPB SCH (10:35)
[2020-07-23] MEDS: Potassium Chlor 10 meq TAB PO SCH (11:23)
[2020-07-23] MEDS: Lidocaine Patch REMOVE PATCH PATCH OFF SCH (21:36)
[2020-07-24 06:00] LABS: ABS Basophils 0.1 10^3/ul (0-0.2); ABS Eosinophils 0.3 10^3/ul (0-0.6); ABS Lymphocytes 0.9 10^3/ul (1.0-4.8); ABS Monocytes 0.8 10^3/ul (0-0.8); ABS Neutrophils 4.5 10^3/ul (1.5-7.7); Eosinophil % 4.8 %; Hematocrit 25 % (35-47); Hemoglobin 8.6 g/dL (12.0-16.0); Lymphocyte % 13.4 %; Mean Corpuscular HGB Conc 34 g/dL (31-36); Mean Corpuscular Hemoglobin 31 pg (27-31); Mean Corpuscular Volume 90 fL (80-97); Mean Platelet Volume 8.8 fL (7.4-10.4); Platelet Count 62 10^3/uL (150-450); Red Blood Count 2.81 10^6 /uL (3.70-4.87); Red Cell Distribution Width 20 % (10-15); White Blood Count 6.6 10^3/uL (3.5-10.8)
[2020-07-24 06:14] LABS: Albumin 2.1 g/dL (3.2-5.2); Albumin/Globulin Ratio 1.2 (1-3); Calcium 7.4 mg/dL (8.6-10.3); EGFR African American 49.3 (>60); EGFR Non-African American 40.7 (>60); Globulin 1.8 g/dL (2-4); Potassium 3.3 mmol/L (3.5-5.0); Total Bilirubin 3.6 mg/dL (0.2-1.0); Total Protein 3.9 g/dL (6.4-8.9)
[2020-07-24 07:08] LABS: INR 1.86 (0.82-1.09)
[2020-07-24] MEDS: Potassium Chlor 10 meq TAB PO SCH (07:38)
[2020-07-24] MEDS ORDERED: Potassium Chlor 20 meq TAB.ER PO ONE (08:13)
[2020-07-24] MEDS ORDERED: Sodium Bicarb 650 mg (ANTACID) TAB PO SCH (09:00)
[2020-07-24] MEDS ORDERED: PTO: Calcitonin NASAL(NF) 200 UNITS/SPRAY NASAL.SPR ALT NARE SCH (09:00)
[2020-07-24] MEDS ORDERED: Lidocaine PATCH 5% PATCH TRANSDERM SCH (09:00)
[2020-07-24] MEDS: cefTRIAXone 1 gm/50 mL NS BAG 1 GM/50 ML BAG IVPB SCH (10:01)
[2020-07-24] MEDS: Lidocaine Patch REMOVE PATCH PATCH OFF SCH (20:24)
[2020-07-25 04:50] VITALS: BP 86/46
[2020-07-25] MEDS ORDERED: Octreotide Acetate 50 MCG/ML ML IV SLOW PU ONE (05:02)
[2020-07-25] MEDS ORDERED: Octreotide Acetate 100 mcg/ml 50 MCG in NS 0.9% 50 ML 50 ML IV ONE (05:04)
[2020-07-25 05:19] LABS: Hematocrit 26 % (35-47); Hemoglobin 8.5 g/dL (12.0-16.0)
[2020-07-25 05:38] LABS: BUN/Creatinine Ratio 14.9 (8-20); Calcium 7.4 mg/dL (8.6-10.3); EGFR African American 35.1 (>60); Magnesium 2.1 mg/dL (1.9-2.7); Potassium 4.3 mmol/L (3.5-5.0)
[2020-07-25] MEDS ORDERED: Octreotide Acetate 500 MCG in NS 0.9% 100 ml BAG 100 ML IV SCH (06:00)
[2020-07-25] MEDS ORDERED: Potassium Chlor 10 meq TAB PO SCH (09:00)
== END 2020-07-25 05:32 | disposition short-term general hospital (02) | DRG 860 ==
LOC: PMRU 07-23 10:01
PROVIDERS: ADMIT Physical Medicine & Rehabilitation; ATTEND Physical Medicine & Rehabilitation

== ENCOUNTER 2020-07-25 05:32 | Inpatient (IN) ==
[2020-07-25] MEDS ORDERED: Octreotide Acetate 100 mcg/ml 50 MCG in NS 0.9% 50 ML 50 ML IV ONE (06:07)
[2020-07-25] MEDS ORDERED: CALCIUM GLUCONATE 1GM/50ML NS 1 GM/50 ML BAG IV ONE (06:10)
[2020-07-25] MEDS ORDERED: cefTRIAXone 1 gm/50 mL NS BAG 1 GM/50 ML BAG IVPB ONE (06:25)
[2020-07-25] MEDS ORDERED: Octreotide Acetate 500 MCG in NS 0.9% 100 ml BAG 100 ML IV SCH (06:30)
[2020-07-25] MEDS ORDERED: Pantoprazole 80 mg in NS BAG 80 MG/250 ML BAG IV SCH (07:30)
[2020-07-25 08:13] VITALS: BP 58/36
== END 2020-07-25 08:33 | disposition short-term general hospital (02) | DRG 242 ==
LOC: ICU 05:32
PROVIDERS: ADMIT Internal Medicine; ATTEND Internal Medicine

== ENCOUNTER 2020-07-31 16:32 | Inpatient (IN) ==
[2020-08-01] MEDS: Potassium Chlor 20 meq TAB.ER PO SCH (08:12)
[2020-08-01] MEDS ORDERED: Lactulose 30 ml UDC PO ONE (13:00)
[2020-08-01] MEDS: Lactulose 30 ml UDC PO SCH (20:13)
[2020-08-02] MEDS: Lactulose 30 ml UDC PO SCH ×2 (07:58→20:29)
[2020-08-02] MEDS: Potassium Chlor 20 meq TAB.ER PO SCH (08:01)
[2020-08-03 08:17] LABS: Albumin 2.2 g/dL (3.2-5.2); Albumin/Globulin Ratio 1.6 (1-3); BUN/Creatinine Ratio 11.1 (8-20); Calcium 7.3 mg/dL (8.6-10.3); EGFR African American 88.8 (>60); EGFR Non-African American 73.4 (>60); Globulin 1.4 g/dL (2-4); Total Bilirubin 3.5 mg/dL (0.2-1.0); Total Protein 3.6 g/dL (6.4-8.9)
[2020-08-03 08:22] LABS: ABS Basophils 0.1 10^3/ul (0-0.2); ABS Eosinophils 0.4 10^3/ul (0-0.6); ABS Lymphocytes 0.6 10^3/ul (1.0-4.8); ABS Monocytes 0.9 10^3/ul (0-0.8); ABS Neutrophils 3.3 10^3/ul (1.5-7.7); Hematocrit 29 % (35-47); Hemoglobin 10.1 g/dL (12.0-16.0); Lymphocyte % 11.6 %; Mean Corpuscular HGB Conc 35 g/dL (31-36); Mean Corpuscular Hemoglobin 32 pg (27-31); Mean Corpuscular Volume 93 fL (80-97); Mean Platelet Volume 8.2 fL (7.4-10.4); Platelet Count 67 10^3/uL (150-450); Red Blood Count 3.11 10^6 /uL (3.70-4.87); Red Cell Distribution Width 20 % (10-15); White Blood Count 5.2 10^3/uL (3.5-10.8)
[2020-08-03] MEDS: Potassium Chlor 20 meq TAB.ER PO SCH (08:48)
[2020-08-03] MEDS: Lactulose 30 ml UDC PO SCH ×2 (08:48→21:37)
[2020-08-03 15:42] LABS: C Reactive Protein 10.4 mg/L (<8.01)
[2020-08-03] MEDS ORDERED: Potassium Chlor 20 meq TAB.ER PO ONE (18:00)
[2020-08-04] MEDS: Lactulose 30 ml UDC PO SCH ×2 (07:45→21:17)
[2020-08-04] MEDS: Potassium Chlor 20 meq TAB.ER PO SCH (07:45)
[2020-08-05] MEDS: Lactulose 30 ml UDC PO SCH ×2 (07:43→20:37)
[2020-08-05] MEDS: Potassium Chlor 20 meq TAB.ER PO SCH (07:43)
[2020-08-05 07:48] LABS: Calcium 7.2 mg/dL (8.6-10.3); EGFR African American 69.7 (>60); EGFR Non-African American 57.6 (>60); Potassium 3.3 mmol/L (3.5-5.0)
[2020-08-06] MEDS: Ondansetron ODT 4 mg TAB 4 MG TAB PO PRN ×2 (09:12→22:59)
[2020-08-06] MEDS: Lactulose 30 ml UDC PO SCH ×2 (09:57→19:54)
[2020-08-06] MEDS: Potassium Chlor 20 meq TAB.ER PO SCH (09:59)
[2020-08-07 05:15] VITALS: BP 101/47
[2020-08-07] MEDS: Lactulose 30 ml UDC PO SCH (09:10)
[2020-08-07] MEDS: Potassium Chlor 20 meq TAB.ER PO SCH (09:10)
== END 2020-08-07 13:20 | disposition home health service (06) | DRG 860 ==
LOC: PMRU 17:00
PROVIDERS: ADMIT Physical Medicine & Rehabilitation; ATTEND Physical Medicine & Rehabilitation

== ENCOUNTER 2020-09-28 15:53 | Inpatient (IN) ==
[2020-09-28 17:04] LABS: Activated Partial Thrombo Time 42.3 seconds (26.0-38.0); INR 2.31 (0.82-1.09)
[2020-09-28 17:14] LABS: Albumin 2.8 g/dL (3.2-5.2); Albumin/Globulin Ratio 1.2 (1-3); BUN/Creatinine Ratio 16.9 (8-20); C Reactive Protein 9.94 mg/L (<8.01); Calcium 8.8 mg/dL (8.6-10.3); EGFR Non-African American 105.8 (>60); Globulin 2.3 g/dL (2-4); Total Bilirubin 8.2 mg/dL (0.2-1.0); Total Protein 5.1 g/dL (6.4-8.9)
[2020-09-28 17:16] LABS: Potassium 2.2 mmol/L (3.5-5.0)
[2020-09-28] MEDS ORDERED: Lactulose 30 ml UDC PO ONE (17:16)
[2020-09-28] MEDS ORDERED: Potassium Chlor 20 meq TAB.ER PO ONE (17:19)
[2020-09-28 17:30] LABS: ABS Eosinophils 0.1 10^3/ul (0-0.6); ABS Lymphocytes 0.9 10^3/ul (1.0-4.8); ABS Monocytes 0.9 10^3/ul (0-0.8); ABS Neutrophils 3.7 10^3/ul (1.5-7.7); Eosinophil % 1.7 %; Hematocrit 30 % (35-47); Hemoglobin 10.6 g/dL (12.0-16.0); Lymphocyte % 16.9 %; Mean Corpuscular HGB Conc 35 g/dL (31-36); Mean Corpuscular Hemoglobin 35 pg (27-31); Mean Corpuscular Volume 99 fL (80-97); Mean Platelet Volume 7.9 fL (7.4-10.4); Platelet Count 95 10^3/uL (150-450); Red Blood Count 3.06 10^6 /uL (3.70-4.87); Red Cell Distribution Width 21 % (10-15); White Blood Count 5.6 10^3/uL (3.5-10.8)
[2020-09-28] MEDS: KCL 20 MEQ/100 ML IVPREMIX 20 MEQ/100 ML BAG IV SCH ×2 (17:44→22:00)
[2020-09-28 19:38] LABS: Magnesium 1.7 mg/dL (1.9-2.7)
[2020-09-28] MEDS ORDERED: Potassium Chlor 10 meq TAB PO ONE (21:00)
[2020-09-29] MEDS ORDERED: Ondansetron 4 mg VIAL 2 MG/ML 2 ml VIAL IV ONE (03:33)
[2020-09-29] MEDS: KCL 20 MEQ/100 ML IVPREMIX 20 MEQ/100 ML BAG IV SCH ×3 (04:05→12:55)
[2020-09-29 06:24] LABS: Hematocrit 28 % (35-47); Hemoglobin 9.5 g/dL (12.0-16.0); Mean Corpuscular HGB Conc 34 g/dL (31-36); Mean Corpuscular Hemoglobin 35 pg (27-31); Mean Corpuscular Volume 100 fL (80-97); Mean Platelet Volume 7.9 fL (7.4-10.4); Platelet Count 90 10^3/uL (150-450); Red Blood Count 2.76 10^6 /uL (3.70-4.87); Red Cell Distribution Width 21 % (10-15)
[2020-09-29 06:40] LABS: Albumin 2.5 g/dL (3.2-5.2); Albumin/Globulin Ratio 1.3 (1-3); BUN/Creatinine Ratio 14.8 (8-20); Calcium 8.4 mg/dL (8.6-10.3); EGFR African American 123.2 (>60); EGFR Non-African American 101.8 (>60); Magnesium 1.6 mg/dL (1.9-2.7); Total Bilirubin 7.4 mg/dL (0.2-1.0); Total Protein 4.5 g/dL (6.4-8.9)
[2020-09-29 07:05] LABS: ABS Basophils 0.1 10^3/ul (0-0.2); ABS Eosinophils 0.2 10^3/ul (0-0.6); ABS Lymphocytes 0.8 10^3/ul (1.0-4.8); ABS Monocytes 0.7 10^3/ul (0-0.8); ABS Neutrophils 3.2 10^3/ul (1.5-7.7); Eosinophil % 4.2 %; Lymphocyte % 15.8 %
[2020-09-29] MEDS ORDERED: Potassium Chlor 20 meq TAB.ER PO ONE (08:00)
[2020-09-29] MEDS ORDERED: NS 0.9% 500 ml BAG 500 ML IV ONE (09:52)
[2020-09-29] MEDS: Sulfamethox/Trimethoprim DS TAB 800/160 mg PO SCH ×2 (11:43→20:14)
[2020-09-30 05:45] LABS: ABS Basophils 0.1 10^3/ul (0-0.2); ABS Eosinophils 0.3 10^3/ul (0-0.6); ABS Lymphocytes 1.2 10^3/ul (1.0-4.8); ABS Monocytes 0.8 10^3/ul (0-0.8); ABS Neutrophils 2.9 10^3/ul (1.5-7.7); Eosinophil % 5.7 %; Hematocrit 26 % (35-47); Hemoglobin 8.9 g/dL (12.0-16.0); Mean Corpuscular HGB Conc 35 g/dL (31-36); Mean Corpuscular Hemoglobin 35 pg (27-31); Mean Corpuscular Volume 101 fL (80-97); Mean Platelet Volume 7.9 fL (7.4-10.4); Nucleated Red Blood Cells % 0.1; Platelet Count 82 10^3/uL (150-450); Red Blood Count 2.53 10^6 /uL (3.70-4.87); Red Cell Distribution Width 21 % (10-15); White Blood Count 5.3 10^3/uL (3.5-10.8)
[2020-09-30 05:51] LABS: Albumin 2.3 g/dL (3.2-5.2); Albumin/Globulin Ratio 1.2 (1-3); Calcium 8.2 mg/dL (8.6-10.3); EGFR African American 133.2 (>60); EGFR Non-African American 110.1 (>60); Globulin 1.9 g/dL (2-4); Potassium 3.4 mmol/L (3.5-5.0); Total Bilirubin 7.1 mg/dL (0.2-1.0); Total Protein 4.2 g/dL (6.4-8.9)
[2020-09-30 08:22] LABS: Magnesium 1.4 mg/dL (1.9-2.7)
[2020-09-30] MEDS: Sulfamethox/Trimethoprim DS TAB 800/160 mg PO SCH ×2 (08:57→20:39)
[2020-09-30] MEDS ORDERED: Magnesium Sulf 4 GM/100 ML IV 4,000 MG/100 ML BAG IVPB ONE (09:00)
[2020-10-01 08:16] LABS: Albumin 2.3 g/dL (3.2-5.2); Albumin/Globulin Ratio 1.2 (1-3); Calcium 8.4 mg/dL (8.6-10.3); EGFR African American 114.5 (>60); EGFR Non-African American 94.6 (>60); Indirect Bilirubin 4.6 mg/dL (0.3-1.0); Potassium 3.5 mmol/L (3.5-5.0); Total Bilirubin 7.4 mg/dL (0.2-1.0); Total Protein 4.3 g/dL (6.4-8.9)
[2020-10-01 08:20] LABS: ABS Basophils 0.1 10^3/ul (0-0.2); ABS Eosinophils 0.3 10^3/ul (0-0.6); ABS Lymphocytes 0.9 10^3/ul (1.0-4.8); ABS Monocytes 0.8 10^3/ul (0-0.8); ABS Neutrophils 2.6 10^3/ul (1.5-7.7); Eosinophil % 7.4 %; Hematocrit 25 % (35-47); Hemoglobin 8.9 g/dL (12.0-16.0); Lymphocyte % 19.5 %; Mean Corpuscular HGB Conc 35 g/dL (31-36); Mean Corpuscular Hemoglobin 35 pg (27-31); Mean Corpuscular Volume 100 fL (80-97); Nucleated Red Blood Cells % 0.1; Platelet Count 82 10^3/uL (150-450); Red Blood Count 2.53 10^6 /uL (3.70-4.87); Red Cell Distribution Width 20 % (10-15); White Blood Count 4.7 10^3/uL (3.5-10.8)
[2020-10-01] MEDS: Sulfamethox/Trimethoprim DS TAB 800/160 mg PO SCH ×2 (08:31→21:01)
[2020-10-01 09:56] LABS: Magnesium 1.9 mg/dL (1.9-2.7)
[2020-10-02] MEDS: Sulfamethox/Trimethoprim DS TAB 800/160 mg PO SCH ×2 (08:27→21:07)
[2020-10-03 06:05] LABS: Albumin 2.5 g/dL (3.2-5.2); Albumin/Globulin Ratio 1.1 (1-3); Calcium 8.3 mg/dL (8.6-10.3); EGFR African American 103.4 (>60); EGFR Non-African American 85.5 (>60); Globulin 2.2 g/dL (2-4); Potassium 4.1 mmol/L (3.5-5.0); Total Bilirubin 7.4 mg/dL (0.2-1.0); Total Protein 4.7 g/dL (6.4-8.9)
[2020-10-03 06:27] LABS: ABS Basophils 0.1 10^3/ul (0-0.2); ABS Eosinophils 0.4 10^3/ul (0-0.6); ABS Monocytes 0.9 10^3/ul (0-0.8); ABS Neutrophils 2.1 10^3/ul (1.5-7.7); Eosinophil % 8.5 %; Hematocrit 27 % (35-47); Hemoglobin 9.2 g/dL (12.0-16.0); Lymphocyte % 23.1 %; Mean Corpuscular HGB Conc 34 g/dL (31-36); Mean Corpuscular Hemoglobin 35 pg (27-31); Mean Corpuscular Volume 102 fL (80-97); Mean Platelet Volume 8.2 fL (7.4-10.4); Nucleated Red Blood Cells % 0.1; Platelet Count 85 10^3/uL (150-450); Red Blood Count 2.62 10^6 /uL (3.70-4.87); Red Cell Distribution Width 21 % (10-15); White Blood Count 4.4 10^3/uL (3.5-10.8)
[2020-10-03] MEDS: Sulfamethox/Trimethoprim DS TAB 800/160 mg PO SCH ×2 (09:27→19:45)
[2020-10-03] MEDS ORDERED: Prochlorperazine 5 mg/ml 2 ml VIAL (10 mg) IV ONE (20:56)
[2020-10-04] MEDS: Sulfamethox/Trimethoprim DS TAB 800/160 mg PO SCH ×2 (10:42→20:41)
[2020-10-04 12:45] LABS: ABS Basophils 0.1 10^3/ul (0-0.2); ABS Lymphocytes 0.6 10^3/ul (1.0-4.8); ABS Monocytes 1.2 10^3/ul (0-0.8); ABS Neutrophils 18.4 10^3/ul (1.5-7.7); Hematocrit 28 % (35-47); Hemoglobin 9.5 g/dL (12.0-16.0); Lymphocyte % 2.9 %; Mean Corpuscular HGB Conc 33 g/dL (31-36); Mean Corpuscular Hemoglobin 35 pg (27-31); Mean Corpuscular Volume 103 fL (80-97); Mean Platelet Volume 8.1 fL (7.4-10.4); Platelet Count 90 10^3/uL (150-450); Red Blood Count 2.75 10^6 /uL (3.70-4.87); Red Cell Distribution Width 20 % (10-15); White Blood Count 20.3 10^3/uL (3.5-10.8)
[2020-10-04 13:02] LABS: Albumin 2.4 g/dL (3.2-5.2); Albumin/Globulin Ratio 1.3 (1-3); Calcium 8.3 mg/dL (8.6-10.3); EGFR African American 63.1 (>60); EGFR Non-African American 52.1 (>60); Globulin 1.9 g/dL (2-4); Indirect Bilirubin 5.5 mg/dL (0.3-1.0); Magnesium 1.7 mg/dL (1.9-2.7); Total Bilirubin 9.1 mg/dL (0.2-1.0); Total Protein 4.3 g/dL (6.4-8.9)
[2020-10-04 13:03] LABS: Potassium 5.3 mmol/L (3.5-5.0)
[2020-10-04] MEDS: cefTRIAXone 2 GM ADDV.VIAL 2 GM in NS 0.9% 100 ml BAG 100 ML IV SCH (17:42)
[2020-10-04 20:19] LABS: Urine Appearance Clear; Urine Bilirubin Negative (Negative); Urine Blood 1+ (Negative); Urine Color Amber; Urine Glucose Negative (Negative); Urine Ketones Negative (Negative); Urine Nitrite Negative (Negative); Urine Protein 1+(30 mg/dL) (Negative); Urine Specific Gravity 1.017 (1.002-1.030); Urine Urobilinogen Negative (Negative)
[2020-10-04 21:19] LABS: Urine Bacteria Absent (Absent); Urine Red Blood Cell Trace(0-2/hpf) (Absent); Urine Squamous Epithelial Cell Present (Absent); Urine White Blood Cell 1+(6-10/hpf) (Absent)
[2020-10-05 06:48] LABS: Hematocrit 26 % (35-47); Hemoglobin 8.6 g/dL (12.0-16.0); Mean Corpuscular HGB Conc 34 g/dL (31-36); Mean Corpuscular Hemoglobin 35 pg (27-31); Mean Corpuscular Volume 104 fL (80-97); Platelet Count 95 10^3/uL (150-450); Red Blood Count 2.49 10^6 /uL (3.70-4.87); Red Cell Distribution Width 21 % (10-15); White Blood Count 22.4 10^3/uL (3.5-10.8)
[2020-10-05 07:10] LABS: Albumin 2.3 g/dL (3.2-5.2); Albumin/Globulin Ratio 1.2 (1-3); C Reactive Protein 54.88 mg/L (<8.01); Calcium 8.2 mg/dL (8.6-10.3); EGFR African American 47.2 (>60); Globulin 1.9 g/dL (2-4); Magnesium 1.8 mg/dL (1.9-2.7); Total Bilirubin 8.2 mg/dL (0.2-1.0); Total Protein 4.2 g/dL (6.4-8.9)
[2020-10-05 07:21] LABS: ABS Basophils 0.3 10^3/ul (0-0.2); ABS Eosinophils 0.1 10^3/ul (0-0.6); ABS Monocytes 2.1 10^3/ul (0-0.8); ABS Neutrophils 18.8 10^3/ul (1.5-7.7); Eosinophil % 0.5 %; Lymphocyte % 4.5 %
[2020-10-05] MEDS: Sulfamethox/Trimethoprim DS TAB 800/160 mg PO SCH ×2 (08:08→10:38)
[2020-10-05 10:00] LABS: INR 3.14 (0.82-1.09)
[2020-10-05] MEDS ORDERED: Albumin Human 5% 12.5 GM/250 ML BTL IV SCH (12:30)
[2020-10-05] MEDS: cefTRIAXone 2 GM ADDV.VIAL 2 GM in NS 0.9% 100 ml BAG 100 ML IV SCH (12:44)
[2020-10-05] MEDS: Prochlorperazine 5 mg/ml 2 ml VIAL (10 mg) IV PRN (15:52)
[2020-10-05 18:34] LABS: Body Fluid Source Peritonial Fluid
[2020-10-05 19:32] LABS: Body Fluid Mono 7 %
[2020-10-05] MEDS: Albumin Human 5% 12.5 GM/250 ML BTL IV SCH (23:53)
[2020-10-06] MEDS: Albumin Human 5% 12.5 GM/250 ML BTL IV SCH ×4 (05:42→23:47)
[2020-10-06 08:47] LABS: ABS Basophils 0.1 10^3/ul (0-0.2); ABS Eosinophils 0.1 10^3/ul (0-0.6); ABS Lymphocytes 0.9 10^3/ul (1.0-4.8); ABS Monocytes 1.4 10^3/ul (0-0.8); Hematocrit 25 % (35-47); Hemoglobin 8.3 g/dL (12.0-16.0); Lymphocyte % 6.4 %; Mean Corpuscular HGB Conc 34 g/dL (31-36); Mean Corpuscular Hemoglobin 35 pg (27-31); Mean Corpuscular Volume 104 fL (80-97); Mean Platelet Volume 8.2 fL (7.4-10.4); Nucleated Red Blood Cells % 0.1; Platelet Count 84 10^3/uL (150-450); Red Blood Count 2.38 10^6 /uL (3.70-4.87); Red Cell Distribution Width 20 % (10-15); White Blood Count 13.6 10^3/uL (3.5-10.8)
[2020-10-06 09:02] LABS: Albumin 2.8 g/dL (3.2-5.2); Albumin/Globulin Ratio 1.5 (1-3); Calcium 8.2 mg/dL (8.6-10.3); EGFR African American 38.3 (>60); EGFR Non-African American 31.6 (>60); Globulin 1.9 g/dL (2-4); Potassium 4.3 mmol/L (3.5-5.0); Total Bilirubin 6.7 mg/dL (0.2-1.0); Total Protein 4.7 g/dL (6.4-8.9)
[2020-10-06] MEDS: cefTRIAXone 2 GM ADDV.VIAL 2 GM in NS 0.9% 100 ml BAG 100 ML IV SCH (14:38)
[2020-10-07] MEDS: Albumin Human 5% 12.5 GM/250 ML BTL IV SCH ×2 (05:29→13:58)
[2020-10-07 05:49] LABS: ABS Basophils 0.1 10^3/ul (0-0.2); ABS Eosinophils 0.2 10^3/ul (0-0.6); ABS Lymphocytes 0.9 10^3/ul (1.0-4.8); ABS Monocytes 1.5 10^3/ul (0-0.8); Eosinophil % 2.5 %; Hematocrit 23 % (35-47); Hemoglobin 7.8 g/dL (12.0-16.0); Lymphocyte % 9.2 %; Mean Corpuscular HGB Conc 34 g/dL (31-36); Mean Corpuscular Hemoglobin 35 pg (27-31); Mean Corpuscular Volume 103 fL (80-97); Mean Platelet Volume 8.1 fL (7.4-10.4); Nucleated Red Blood Cells % 0.1; Platelet Count 80 10^3/uL (150-450); Red Blood Count 2.21 10^6 /uL (3.70-4.87); Red Cell Distribution Width 20 % (10-15); White Blood Count 9.7 10^3/uL (3.5-10.8)
[2020-10-07 09:00] LABS: Albumin 2.8 g/dL (3.2-5.2); Albumin/Globulin Ratio 1.8 (1-3); Calcium 8.3 mg/dL (8.6-10.3); EGFR African American 45.4 (>60); EGFR Non-African American 37.5 (>60); Globulin 1.6 g/dL (2-4); Potassium 4.1 mmol/L (3.5-5.0); Total Bilirubin 6.1 mg/dL (0.2-1.0); Total Protein 4.4 g/dL (6.4-8.9)
[2020-10-07] MEDS ORDERED: Fluconazole 400 MG IVPREMIX 400 MG/200 ML BAG IVPB SCH (09:00)
[2020-10-07] MEDS ORDERED: Anidulafungin 200 MG in NS 0.9% 250 ml 200 ML IVPB ONE (09:30)
[2020-10-07] MEDS: cefTRIAXone 2 GM ADDV.VIAL 2 GM in NS 0.9% 100 ml BAG 100 ML IV SCH (15:50)
[2020-10-08 05:14] LABS: ABS Basophils 0.1 10^3/ul (0-0.2); ABS Eosinophils 0.4 10^3/ul (0-0.6); ABS Lymphocytes 0.8 10^3/ul (1.0-4.8); ABS Monocytes 1.7 10^3/ul (0-0.8); Eosinophil % 3.9 %; Hematocrit 24 % (35-47); Hemoglobin 8.3 g/dL (12.0-16.0); Lymphocyte % 9.3 %; Mean Corpuscular HGB Conc 34 g/dL (31-36); Mean Corpuscular Hemoglobin 36 pg (27-31); Mean Corpuscular Volume 104 fL (80-97); Nucleated Red Blood Cells % 0.1; Platelet Count 82 10^3/uL (150-450); Red Blood Count 2.33 10^6 /uL (3.70-4.87); Red Cell Distribution Width 20 % (10-15)
[2020-10-08 05:18] LABS: Calcium 8.3 mg/dL (8.6-10.3); EGFR African American 53.8 (>60); EGFR Non-African American 44.5 (>60); Globulin 1.5 g/dL (2-4); Potassium 3.6 mmol/L (3.5-5.0); Total Bilirubin 7.2 mg/dL (0.2-1.0); Total Protein 4.5 g/dL (6.4-8.9)
[2020-10-08] MEDS: Anidulafungin 100 MG in NS 0.9% 100 ml BAG 100 ML IVPB SCH (08:36)
[2020-10-08] MEDS: cefTRIAXone 2 GM ADDV.VIAL 2 GM in NS 0.9% 100 ml BAG 100 ML IV SCH (14:12)
[2020-10-09] MEDS: diPHENhydraMINE 25 mg TAB PO PRN (00:10)
[2020-10-09] MEDS: Anidulafungin 100 MG in NS 0.9% 100 ml BAG 100 ML IVPB SCH (08:35)
[2020-10-09 08:45] LABS: ABS Eosinophils 0.4 10^3/ul (0-0.6); ABS Lymphocytes 0.7 10^3/ul (1.0-4.8); ABS Monocytes 1.7 10^3/ul (0-0.8); ABS Neutrophils 4.8 10^3/ul (1.5-7.7); Eosinophil % 4.9 %; Hematocrit 25 % (35-47); Hemoglobin 8.8 g/dL (12.0-16.0); Mean Corpuscular HGB Conc 34 g/dL (31-36); Mean Corpuscular Hemoglobin 35 pg (27-31); Mean Corpuscular Volume 103 fL (80-97); Mean Platelet Volume 7.7 fL (7.4-10.4); Platelet Count 87 10^3/uL (150-450); Red Blood Count 2.47 10^6 /uL (3.70-4.87); Red Cell Distribution Width 20 % (10-15); White Blood Count 7.7 10^3/uL (3.5-10.8)
[2020-10-09 08:58] LABS: Albumin 2.9 g/dL (3.2-5.2); Albumin/Globulin Ratio 1.8 (1-3); Calcium 8.5 mg/dL (8.6-10.3); EGFR African American 58.7 (>60); EGFR Non-African American 48.5 (>60); Globulin 1.6 g/dL (2-4); Potassium 3.5 mmol/L (3.5-5.0); Total Bilirubin 8.2 mg/dL (0.2-1.0); Total Protein 4.5 g/dL (6.4-8.9)
[2020-10-09] MEDS ORDERED: Octreotide Acetate 500 MCG in NS 0.9% 100 ml BAG 100 ML IV SCH (09:00)
[2020-10-09] MEDS ORDERED: Propofol 10 MG/ML 20 ML BTL ONE ×2 (13:39→13:44)
[2020-10-09] MEDS: cefTRIAXone 2 GM ADDV.VIAL 2 GM in NS 0.9% 100 ml BAG 100 ML IV SCH (15:00)
[2020-10-10 06:07] LABS: ABS Basophils 0.1 10^3/ul (0-0.2); ABS Eosinophils 0.6 10^3/ul (0-0.6); ABS Lymphocytes 0.8 10^3/ul (1.0-4.8); ABS Monocytes 1.4 10^3/ul (0-0.8); ABS Neutrophils 3.7 10^3/ul (1.5-7.7); Eosinophil % 9.2 %; Hematocrit 25 % (35-47); Hemoglobin 8.4 g/dL (12.0-16.0); Lymphocyte % 11.6 %; Mean Corpuscular HGB Conc 34 g/dL (31-36); Mean Corpuscular Hemoglobin 35 pg (27-31); Mean Corpuscular Volume 104 fL (80-97); Mean Platelet Volume 7.9 fL (7.4-10.4); Platelet Count 88 10^3/uL (150-450); Red Blood Count 2.39 10^6 /uL (3.70-4.87); Red Cell Distribution Width 19 % (10-15); White Blood Count 6.6 10^3/uL (3.5-10.8)
[2020-10-10 06:20] LABS: ALT 11 U/L (7-52); Albumin 2.7 g/dL (3.2-5.2); Albumin/Globulin Ratio 1.7 (1-3); Alkaline Phosphatase 122 U/L (34-104); Blood Urea Nitrogen 13 mg/dL (6-24); CO2 Carbon Dioxide 19 mmol/L (22-32); Calcium 8.1 mg/dL (8.6-10.3); Chloride 106 mmol/L (101-111); EGFR African American 54.3 (>60); EGFR Non-African American 44.9 (>60); Globulin 1.6 g/dL (2-4); Glucose 125 mg/dL (70-100); Sodium 132 mmol/L (135-145); Total Protein 4.3 g/dL (6.4-8.9)
[2020-10-10 07:06] LABS: Anion Gap 7 mmol/L (2-11)
[2020-10-10] MEDS: Anidulafungin 100 MG in NS 0.9% 100 ml BAG 100 ML IVPB SCH (09:43)
[2020-10-10] MEDS: cefTRIAXone 2 GM ADDV.VIAL 2 GM in NS 0.9% 100 ml BAG 100 ML IV SCH (14:33)
[2020-10-10 15:40] LABS: Urine Creatinine Concentration 96.19 mg/dL; Urine Sodium Concentration < 18 mmol/L
[2020-10-10 16:18] LABS: Potassium Redraw 3.7 mmol/L (3.5-5.0)
[2020-10-11 04:36] LABS: ABS Basophils 0.1 10^3/ul (0-0.2); ABS Eosinophils 0.5 10^3/ul (0-0.6); ABS Lymphocytes 0.8 10^3/ul (1.0-4.8); ABS Monocytes 1.9 10^3/ul (0-0.8); ABS Neutrophils 6.3 10^3/ul (1.5-7.7); Hematocrit 27 % (35-47); Hemoglobin 9.3 g/dL (12.0-16.0); Lymphocyte % 7.9 %; Mean Corpuscular HGB Conc 34 g/dL (31-36); Mean Corpuscular Hemoglobin 35 pg (27-31); Mean Corpuscular Volume 103 fL (80-97); Mean Platelet Volume 7.8 fL (7.4-10.4); Platelet Count 97 10^3/uL (150-450); Red Blood Count 2.66 10^6 /uL (3.70-4.87); Red Cell Distribution Width 19 % (10-15); White Blood Count 9.5 10^3/uL (3.5-10.8)
[2020-10-11 04:39] LABS: Albumin 2.7 g/dL (3.2-5.2); Albumin/Globulin Ratio 1.6 (1-3); Calcium 7.9 mg/dL (8.6-10.3); EGFR African American 59.3 (>60); Globulin 1.7 g/dL (2-4); Magnesium 1.7 mg/dL (1.9-2.7); Potassium 3.8 mmol/L (3.5-5.0); Total Bilirubin 7.7 mg/dL (0.2-1.0); Total Protein 4.4 g/dL (6.4-8.9)
[2020-10-11] MEDS: Anidulafungin 100 MG in NS 0.9% 100 ml BAG 100 ML IVPB SCH (08:24)
[2020-10-11] MEDS ORDERED: Magnesium Sulfate IV 3 GM in NS 0.9% 100 ml BAG 100 ML IVPB ONE (11:00)
[2020-10-11] MEDS: cefTRIAXone 2 GM ADDV.VIAL 2 GM in NS 0.9% 100 ml BAG 100 ML IV SCH (14:07)
[2020-10-12] MEDS: diPHENhydraMINE 25 mg TAB PO PRN ×2 (01:00→23:43)
[2020-10-12 05:46] LABS: Hematocrit 27 % (35-47); Hemoglobin 9.2 g/dL (12.0-16.0); Mean Corpuscular HGB Conc 34 g/dL (31-36); Mean Corpuscular Hemoglobin 35 pg (27-31); Mean Corpuscular Volume 103 fL (80-97); Mean Platelet Volume 7.8 fL (7.4-10.4); Platelet Count 100 10^3/uL (150-450); Red Blood Count 2.62 10^6 /uL (3.70-4.87); Red Cell Distribution Width 18 % (10-15); White Blood Count 10.5 10^3/uL (3.5-10.8)
[2020-10-12 05:52] LABS: ABS Basophils 0.1 10^3/ul (0-0.2); ABS Eosinophils 0.4 10^3/ul (0-0.6); ABS Lymphocytes 0.9 10^3/ul (1.0-4.8); ABS Monocytes 2.2 10^3/ul (0-0.8); ABS Neutrophils 6.9 10^3/ul (1.5-7.7); Eosinophil % 3.9 %; Lymphocyte % 8.9 %
[2020-10-12 05:53] LABS: INR 2.8 (0.82-1.09)
[2020-10-12 06:01] LABS: Albumin 2.7 g/dL (3.2-5.2); Calcium 8.3 mg/dL (8.6-10.3); Magnesium 2.2 mg/dL (1.9-2.7); Potassium 3.5 mmol/L (3.5-5.0); Total Bilirubin 7.3 mg/dL (0.2-1.0)
[2020-10-12 06:07] LABS: Albumin/Globulin Ratio 1.5 (1-3); EGFR Non-African American 42.2 (>60); Globulin 1.8 g/dL (2-4); Total Protein 4.5 g/dL (6.4-8.9)
[2020-10-12] MEDS: Anidulafungin 100 MG in NS 0.9% 100 ml BAG 100 ML IVPB SCH (07:48)
[2020-10-13 06:01] LABS: INR 3.03 (0.82-1.09)
[2020-10-13 06:06] LABS: Hematocrit 26 % (35-47); Hemoglobin 8.9 g/dL (12.0-16.0); Mean Corpuscular HGB Conc 34 g/dL (31-36); Mean Corpuscular Hemoglobin 35 pg (27-31); Mean Corpuscular Volume 103 fL (80-97); Mean Platelet Volume 7.8 fL (7.4-10.4); Platelet Count 95 10^3/uL (150-450); Red Blood Count 2.52 10^6 /uL (3.70-4.87); Red Cell Distribution Width 19 % (10-15); White Blood Count 10.3 10^3/uL (3.5-10.8)
[2020-10-13 06:08] LABS: Calcium 8.3 mg/dL (8.6-10.3); EGFR African American 50.6 (>60); EGFR Non-African American 41.8 (>60); Potassium 3.3 mmol/L (3.5-5.0)
[2020-10-13] MEDS: Anidulafungin 100 MG in NS 0.9% 100 ml BAG 100 ML IVPB SCH (08:52)
[2020-10-13] MEDS ORDERED: NS 0.9% 500 ml BAG 500 ML IV ONE (08:58)
[2020-10-13] MEDS ORDERED: fentaNYL 100 mcg/2 ml 50 MCG/ML VIAL ONE (16:22)
[2020-10-13] MEDS: diPHENhydraMINE 25 mg TAB PO PRN (22:00)
[2020-10-14 06:14] LABS: ABS Eosinophils 0.4 10^3/ul (0-0.6); ABS Lymphocytes 0.8 10^3/ul (1.0-4.8); ABS Monocytes 1.5 10^3/ul (0-0.8); ABS Neutrophils 7.5 10^3/ul (1.5-7.7); Eosinophil % 4.1 %; Hematocrit 25 % (35-47); Hemoglobin 8.7 g/dL (12.0-16.0); Lymphocyte % 7.5 %; Mean Corpuscular HGB Conc 34 g/dL (31-36); Mean Corpuscular Hemoglobin 36 pg (27-31); Mean Corpuscular Volume 104 fL (80-97); Mean Platelet Volume 8.1 fL (7.4-10.4); Nucleated Red Blood Cells % 0.1; Platelet Count 95 10^3/uL (150-450); Red Blood Count 2.43 10^6 /uL (3.70-4.87); Red Cell Distribution Width 19 % (10-15); White Blood Count 10.3 10^3/uL (3.5-10.8)
[2020-10-14 06:42] LABS: Calcium 8.1 mg/dL (8.6-10.3); EGFR African American 54.9 (>60); EGFR Non-African American 45.3 (>60); Potassium 3.4 mmol/L (3.5-5.0)
[2020-10-14] MEDS: Anidulafungin 100 MG in NS 0.9% 100 ml BAG 100 ML IVPB SCH (08:09)
[2020-10-15] MEDS: Anidulafungin 100 MG in NS 0.9% 100 ml BAG 100 ML IVPB SCH (09:45)
[2020-10-15] MEDS: Prochlorperazine 5 mg/ml 2 ml VIAL (10 mg) IV PRN (21:16)
[2020-10-16 06:17] LABS: ABS Basophils 0.1 10^3/ul (0-0.2); ABS Eosinophils 0.2 10^3/ul (0-0.6); ABS Lymphocytes 0.7 10^3/ul (1.0-4.8); ABS Monocytes 1.5 10^3/ul (0-0.8); ABS Neutrophils 6.6 10^3/ul (1.5-7.7); Eosinophil % 2.1 %; Hematocrit 24 % (35-47); Hemoglobin 8.2 g/dL (12.0-16.0); Lymphocyte % 7.5 %; Mean Corpuscular HGB Conc 35 g/dL (31-36); Mean Corpuscular Hemoglobin 35 pg (27-31); Mean Corpuscular Volume 102 fL (80-97); Platelet Count 99 10^3/uL (150-450); Red Blood Count 2.33 10^6 /uL (3.70-4.87); Red Cell Distribution Width 18 % (10-15); White Blood Count 9.1 10^3/uL (3.5-10.8)
[2020-10-16 06:32] LABS: Albumin 2.3 g/dL (3.2-5.2); Albumin/Globulin Ratio 1.3 (1-3); Calcium 7.7 mg/dL (8.6-10.3); EGFR African American 58.7 (>60); EGFR Non-African American 48.5 (>60); Globulin 1.8 g/dL (2-4); Potassium 3.3 mmol/L (3.5-5.0); Total Protein 4.1 g/dL (6.4-8.9)
[2020-10-16] MEDS: Anidulafungin 100 MG in NS 0.9% 100 ml BAG 100 ML IVPB SCH (08:14)
[2020-10-16 11:43] VITALS: BP 111/48
== END 2020-10-16 14:20 | disposition swing bed (61) | DRG 279 ==
LOC: ED 15:53 → MED 17:47
PROVIDERS: ADMIT Hospitalist; ATTEND Internal Medicine
PROC: O.CATEE (2020-10-09 14:10)
PROC: O.GIEGD (2020-10-09 14:10)

== ENCOUNTER 2020-10-16 14:07 | Inpatient (IN) ==
[2020-10-16] MEDS ORDERED: Ondansetron ODT 4 mg TAB 4 MG TAB PO PRN (14:34)
[2020-10-17] MEDS: diPHENhydraMINE 25 mg TAB PO PRN ×2 (04:45→22:38)
[2020-10-17] MEDS: Anidulafungin 100 MG in NS 0.9% 100 ml BAG 100 ML IVPB SCH (09:23)
[2020-10-18 05:10] LABS: ABS Eosinophils 0.2 10^3/ul (0-0.6); ABS Lymphocytes 0.7 10^3/ul (1.0-4.8); ABS Monocytes 1.6 10^3/ul (0-0.8); ABS Neutrophils 4.6 10^3/ul (1.5-7.7); Eosinophil % 3.4 %; Hematocrit 24 % (35-47); Hemoglobin 8.4 g/dL (12.0-16.0); Lymphocyte % 9.2 %; Mean Corpuscular HGB Conc 35 g/dL (31-36); Mean Corpuscular Hemoglobin 35 pg (27-31); Mean Corpuscular Volume 101 fL (80-97); Mean Platelet Volume 7.7 fL (7.4-10.4); Nucleated Red Blood Cells % 0.1; Platelet Count 99 10^3/uL (150-450); Red Blood Count 2.37 10^6 /uL (3.70-4.87); Red Cell Distribution Width 18 % (10-15); White Blood Count 7.2 10^3/uL (3.5-10.8)
[2020-10-18 05:22] LABS: Albumin 2.3 g/dL (3.2-5.2); Albumin/Globulin Ratio 1.2 (1-3); Calcium 7.9 mg/dL (8.6-10.3); EGFR African American 59.9 (>60); EGFR Non-African American 49.5 (>60); Potassium 3.9 mmol/L (3.5-5.0); Total Bilirubin 7.2 mg/dL (0.2-1.0); Total Protein 4.3 g/dL (6.4-8.9)
[2020-10-18] MEDS: Anidulafungin 100 MG in NS 0.9% 100 ml BAG 100 ML IVPB SCH (09:15)
[2020-10-18] MEDS: diPHENhydraMINE 25 mg TAB PO PRN (21:12)
[2020-10-19] MEDS: Anidulafungin 100 MG in NS 0.9% 100 ml BAG 100 ML IVPB SCH (09:10)
[2020-10-19] MEDS: diPHENhydraMINE 25 mg TAB PO PRN (20:49)
[2020-10-20] MEDS: Anidulafungin 100 MG in NS 0.9% 100 ml BAG 100 ML IVPB SCH (09:48)
[2020-10-21] MEDS: Anidulafungin 100 MG in NS 0.9% 100 ml BAG 100 ML IVPB SCH (08:17)
[2020-10-21] MEDS ORDERED: Prochlorperazine 5 mg/ml 2 ml VIAL (10 mg) IV PRN (23:37)
[2020-10-22] MEDS: Anidulafungin 100 MG in NS 0.9% 100 ml BAG 100 ML IVPB SCH (08:45)
[2020-10-22] MEDS: diPHENhydraMINE 25 mg TAB PO PRN (21:08)
[2020-10-23] MEDS: Anidulafungin 100 MG in NS 0.9% 100 ml BAG 100 ML IVPB SCH (08:11)
[2020-10-23] MEDS: diPHENhydraMINE 25 mg TAB PO PRN (20:51)
[2020-10-24] MEDS: Anidulafungin 100 MG in NS 0.9% 100 ml BAG 100 ML IVPB SCH (09:42)
[2020-10-24 10:28] LABS: ABS Basophils 0.1 10^3/ul (0-0.2); ABS Eosinophils 0.2 10^3/ul (0-0.6); ABS Lymphocytes 0.8 10^3/ul (1.0-4.8); ABS Neutrophils 5.8 10^3/ul (1.5-7.7); Eosinophil % 2.1 %; Hematocrit 28 % (35-47); Hemoglobin 9.6 g/dL (12.0-16.0); Lymphocyte % 9.7 %; Mean Corpuscular HGB Conc 34 g/dL (31-36); Mean Corpuscular Hemoglobin 35 pg (27-31); Mean Corpuscular Volume 102 fL (80-97); Mean Platelet Volume 7.3 fL (7.4-10.4); Nucleated Red Blood Cells % 0.1; Platelet Count 115 10^3/uL (150-450); Red Blood Count 2.78 10^6 /uL (3.70-4.87); Red Cell Distribution Width 16 % (10-15); White Blood Count 7.8 10^3/uL (3.5-10.8)
[2020-10-24 10:46] LABS: Albumin 2.6 g/dL (3.2-5.2); Calcium 8.1 mg/dL (8.6-10.3); EGFR African American 49.3 (>60); EGFR Non-African American 40.7 (>60); Globulin 2.5 g/dL (2-4); Magnesium 1.8 mg/dL (1.9-2.7); Potassium 4.1 mmol/L (3.5-5.0); Total Bilirubin 8.8 mg/dL (0.2-1.0); Total Protein 5.1 g/dL (6.4-8.9)
[2020-10-24] MEDS ORDERED: Magnesium Sulfate 2 gm BAG 2 GM/50 ML BAG IVPB ONE (16:16)
[2020-10-25] MEDS: diPHENhydraMINE 25 mg TAB PO PRN ×2 (00:55→21:37)
[2020-10-25] MEDS: Anidulafungin 100 MG in NS 0.9% 100 ml BAG 100 ML IVPB SCH (09:19)
[2020-10-26 07:48] LABS: ABS Basophils 0.1 10^3/ul (0-0.2); ABS Eosinophils 0.3 10^3/ul (0-0.6); ABS Lymphocytes 0.8 10^3/ul (1.0-4.8); ABS Monocytes 1.5 10^3/ul (0-0.8); ABS Neutrophils 5.1 10^3/ul (1.5-7.7); Eosinophil % 4.1 %; Hematocrit 23 % (35-47); Lymphocyte % 10.2 %; Mean Corpuscular HGB Conc 35 g/dL (31-36); Mean Corpuscular Hemoglobin 35 pg (27-31); Mean Corpuscular Volume 100 fL (80-97); Mean Platelet Volume 7.5 fL (7.4-10.4); Platelet Count 109 10^3/uL (150-450); Red Cell Distribution Width 16 % (10-15); White Blood Count 7.8 10^3/uL (3.5-10.8)
[2020-10-26 07:56] LABS: INR 2.47 (0.82-1.09)
[2020-10-26 08:05] LABS: Albumin 2.1 g/dL (3.2-5.2); Albumin/Globulin Ratio 0.9 (1-3); C Reactive Protein 13.39 mg/L (<8.01); EGFR African American 55.4 (>60); EGFR Non-African American 45.8 (>60); Globulin 2.3 g/dL (2-4); Magnesium 1.9 mg/dL (1.9-2.7); Potassium 4.3 mmol/L (3.5-5.0); Total Bilirubin 7.5 mg/dL (0.2-1.0); Total Protein 4.4 g/dL (6.4-8.9)
[2020-10-26] MEDS: Anidulafungin 100 MG in NS 0.9% 100 ml BAG 100 ML IVPB SCH (09:23)
[2020-10-26] MEDS: diPHENhydraMINE 25 mg TAB PO PRN (20:52)
[2020-10-27 10:28] LABS: Hematocrit 24 % (35-47); Hemoglobin 8.3 g/dL (12.0-16.0); Mean Corpuscular HGB Conc 35 g/dL (31-36); Mean Corpuscular Hemoglobin 35 pg (27-31); Mean Corpuscular Volume 101 fL (80-97); Mean Platelet Volume 7.2 fL (7.4-10.4); Platelet Count 119 10^3/uL (150-450); Red Blood Count 2.38 10^6 /uL (3.70-4.87); Red Cell Distribution Width 16 % (10-15); White Blood Count 9.2 10^3/uL (3.5-10.8)
[2020-10-27 11:02] LABS: Albumin 2.1 g/dL (3.2-5.2); Albumin/Globulin Ratio 0.8 (1-3); Calcium 7.9 mg/dL (8.6-10.3); EGFR African American 59.3 (>60); Globulin 2.5 g/dL (2-4); Magnesium 1.7 mg/dL (1.9-2.7); Potassium 4.5 mmol/L (3.5-5.0); Total Bilirubin 7.7 mg/dL (0.2-1.0); Total Protein 4.6 g/dL (6.4-8.9)
[2020-10-27 11:11] LABS: ABS Eosinophils 0.2 10^3/ul (0-0.6); ABS Lymphocytes 0.8 10^3/ul (1.0-4.8); ABS Monocytes 1.9 10^3/ul (0-0.8); ABS Neutrophils 6.3 10^3/ul (1.5-7.7); Eosinophil % 2.4 %; Lymphocyte % 8.1 %
[2020-10-27] MEDS: diPHENhydraMINE 25 mg TAB PO PRN (20:52)
[2020-10-28 07:45] VITALS: BP 112/60
== END 2020-10-28 12:24 | DRG 720 ==
LOC: MED 17:23
PROVIDERS: ADMIT Internal Medicine; ATTEND Internal Medicine

== ENCOUNTER 2021-01-12 11:31 | Inpatient (IN) ==
[2021-01-12] MEDS ORDERED: NS 0.9% 1000 ml BAG 1,000 ML IV ONE ×2 (11:48→12:46)
[2021-01-12] MEDS ORDERED: Ondansetron 4 mg VIAL 2 MG/ML 2 ml VIAL IV ONE (12:20)
[2021-01-12 12:39] LABS: ALT 23 U/L (7-52); AST 37 U/L (13-39); Albumin 1.7 g/dL (3.2-5.2); Albumin/Globulin Ratio 0.7 (1-3); Alkaline Phosphatase 189 U/L (35-149); Blood Urea Nitrogen 59 mg/dL (6-24); C Reactive Protein 33.84 mg/L (<8.01); Calcium 7.6 mg/dL (8.6-10.3); Chloride 93 mmol/L (101-111); EGFR Non-African American 10.8 (>60); Globulin 2.5 g/dL (2-4); Glucose 78 mg/dL (70-100); Sodium 120 mmol/L (135-145); Total Protein 4.2 g/dL (6.4-8.9)
[2021-01-12 12:40] LABS: Hemoglobin 6.2 g/dL (12.0-16.0)
[2021-01-12 12:42] LABS: Hematocrit 19 % (35-47); Mean Corpuscular HGB Conc 33 g/dL (31-36); Mean Corpuscular Hemoglobin 32 pg (27-31); Mean Corpuscular Volume 99 fL (80-97); Mean Platelet Volume 10.5 fL (7.4-10.4); Platelet Count 54 10^3/uL (150-450); Red Blood Count 1.92 10^6 /uL (3.70-4.87); Red Cell Distribution Width 22 % (10-15)
[2021-01-12] MEDS ORDERED: Albumin Human 25% 25 GM/100 ML BTL IV ONE (12:42)
[2021-01-12 12:46] LABS: Anion Gap 13 mmol/L (2-11); CO2 Carbon Dioxide 14 mmol/L (22-32)
[2021-01-12 12:47] LABS: Activated Partial Thrombo Time 60.3 seconds (26.0-38.0); INR 2.2 (0.86-1.15)
[2021-01-12 13:21] LABS: ABS Lymphocytes 0.7 10^3/ul (1.0-4.8); ABS Monocytes 0.9 10^3/ul (0-0.8); ABS Neutrophils 23.3 10^3/ul (1.5-7.7); ABS Nucleated RBC 0.3 10^3/ul; Eosinophil % 0.2 %; Lymphocyte % 2.9 %; Nucleated Red Blood Cells % 1.3
[2021-01-12] MEDS ORDERED: Meropenem 1 GM PREMIX(*) 1 GM/50 ML BAG IV ONE (14:00)
[2021-01-12] MEDS ORDERED: Phytonadione SUBCUT/IM Adult 10 MG/ML AMP (IM or SQ not preferred route) IM ONE (14:20)
[2021-01-12] MEDS ORDERED: Octreotide Acetate 50 MCG in NS 0.9% 50 ML 50 ML IV ONE (16:30)
[2021-01-12] MEDS ORDERED: Vancomycin 1,000 MG in NS 0.9% 250 ml 250 ML IVPB ONE (17:00)
[2021-01-12 17:11] LABS: Body Fluid Source Peritonial Fluid
[2021-01-12 17:22] LABS: Magnesium 3.8 mg/dL (1.9-2.7)
[2021-01-12 18:00] LABS: Body Fluid Appearance Clear; Body Fluid Color Yellow
[2021-01-12 18:23] LABS: Body Fluid WBC 18 /mcL
[2021-01-12 18:28] LABS: Body Fluid Band 1 %; Body Fluid Mono 8 %; Body Fluid Other Cells 60; Body Fluid Total Cells Counted 200
[2021-01-12] MEDS ORDERED: ALBUMIN HUMAN 25% IV ONE (18:50)
[2021-01-12] MEDS: Albumin Human 25% 25 GM/100 ML BTL IV SCH ×3 (19:57→23:11)
[2021-01-12] MEDS: Lactulose 30 ml UDC PO SCH ×2 (19:58→22:14)
[2021-01-12] MEDS: Octreotide Acetate 500 MCG in NS 0.9% 100 ML IV SCH (19:59)
[2021-01-12] MEDS: Pantoprazole VIAL 40 MG VIAL IV SCH (20:00)
[2021-01-12] MEDS: Morphine 2 MG/ML SYRINGE IV PRN (20:00)
[2021-01-12 21:24] LABS: INR 2.38 (0.86-1.15)
[2021-01-12] MEDS ORDERED: Vancomycin per Pharmacy 1 EA NOTE FOLLOW UP PRN (22:09)
[2021-01-12 22:11] LABS: Albumin 2.3 g/dL (3.2-5.2); Calcium 7.5 mg/dL (8.6-10.3); Magnesium 3.6 mg/dL (1.9-2.7); Potassium 4.9 mmol/L (3.5-5.0); Total Bilirubin 6.5 mg/dL (0.2-1.0)
[2021-01-12 22:12] LABS: Hematocrit 24 % (35-47); Hemoglobin 7.5 g/dL (12.0-16.0); Mean Corpuscular HGB Conc 32 g/dL (31-36); Mean Corpuscular Hemoglobin 32 pg (27-31); Mean Corpuscular Volume 102 fL (80-97); Red Blood Count 2.32 10^6 /uL (3.70-4.87); Red Cell Distribution Width 20 % (10-15); White Blood Count 20.8 10^3/uL (3.5-10.8)
[2021-01-12 22:13] LABS: ABS Basophils 0.1 10^3/ul (0-0.2); ABS Lymphocytes 0.5 10^3/ul (1.0-4.8); ABS Neutrophils 19.2 10^3/ul (1.5-7.7); ABS Nucleated RBC 0.2 10^3/ul; Eosinophil % 0.1 %; Lymphocyte % 2.5 %; Mean Platelet Volume 10.6 fL (7.4-10.4); Nucleated Red Blood Cells % 0.9; Platelet Count 40 10^3/uL (150-450)
[2021-01-12 22:17] LABS: EGFR African American 13.7 (>60); EGFR Non-African American 11.3 (>60); Globulin 2.3 g/dL (2-4); Phosphorus 7.8 mg/dL (2.5-5.0); Total Protein 4.6 g/dL (6.4-8.9)
[2021-01-12] MEDS: Dextrose 50% Syringe 50 ml 25 GM/50 ML SYRINGE IV PUSH PRN (23:08)
[2021-01-12] MEDS: Norepinephrine 16MCG/ML IVPRE 4,000 MCG/250 ML BAG IV SCH (23:46)
[2021-01-13] MEDS: Morphine 2 MG/ML SYRINGE IV PRN ×4 (00:05→18:46)
[2021-01-13 00:28] LABS: Urine Appearance Cloudy; Urine Bilirubin Negative (Negative); Urine Blood Negative (Negative); Urine Color Amber; Urine Glucose Negative (Negative); Urine Ketones Trace (Negative); Urine Nitrite Negative (Negative); Urine Protein Negative (Negative); Urine Specific Gravity 1.013 (1.002-1.030); Urine Urobilinogen Negative (Negative)
[2021-01-13 00:44] LABS: Urine Chloride Concentration < 22 mmol/L; Urine Creatinine Concentration 87.48 mg/dL; Urine Sodium Concentration < 18 mmol/L
[2021-01-13] MEDS ORDERED: Meropenem 1 GM PREMIX(*) 1 GM/50 ML BAG IV SCH (03:00)
[2021-01-13] MEDS: Octreotide Acetate 500 MCG in NS 0.9% 100 ML IV SCH ×2 (03:28→20:23)
[2021-01-13] MEDS: Norepinephrine 16MCG/ML IVPRE 4,000 MCG/250 ML BAG IV SCH ×7 (03:49→21:58)
[2021-01-13] MEDS ORDERED: Vancomycin Random Level NOTE FOLLOW UP ONE (06:00)
[2021-01-13 06:31] LABS: INR 2.71 (0.86-1.15)
[2021-01-13 06:32] LABS: Calcium 7.4 mg/dL (8.6-10.3); Magnesium 3.5 mg/dL (1.9-2.7); Potassium 4.7 mmol/L (3.5-5.0)
[2021-01-13 06:38] LABS: Albumin/Globulin Ratio 1.6 (1-3); EGFR African American 14.7 (>60); EGFR Non-African American 12.1 (>60); Globulin 1.9 g/dL (2-4); Phosphorus 7.5 mg/dL (2.5-5.0); Total Protein 4.9 g/dL (6.4-8.9)
[2021-01-13 06:50] LABS: ABS Basophils 0.1 10^3/ul (0-0.2); ABS Eosinophils 0.1 10^3/ul (0-0.6); ABS Lymphocytes 0.8 10^3/ul (1.0-4.8); ABS Monocytes 0.8 10^3/ul (0-0.8); ABS Neutrophils 13.8 10^3/ul (1.5-7.7); ABS Nucleated RBC 0.1 10^3/ul; Eosinophil % 0.6 %; Hematocrit 20 % (35-47); Hemoglobin 6.6 g/dL (12.0-16.0); Lymphocyte % 4.9 %; Mean Corpuscular HGB Conc 34 g/dL (31-36); Mean Corpuscular Hemoglobin 32 pg (27-31); Mean Corpuscular Volume 96 fL (80-97); Mean Platelet Volume 9.4 fL (7.4-10.4); Nucleated Red Blood Cells % 0.8; Platelet Count 33 10^3/uL (150-450); Red Blood Count 2.04 10^6 /uL (3.70-4.87); Red Cell Distribution Width 20 % (10-15); White Blood Count 15.5 10^3/uL (3.5-10.8)
[2021-01-13 06:56] LABS: Vancomycin Random 10.3 mcg/mL
[2021-01-13] MEDS: Lactulose 30 ml UDC PO SCH ×3 (08:55→21:58)
[2021-01-13] MEDS: Pantoprazole VIAL 40 MG VIAL IV SCH ×2 (08:56→21:57)
[2021-01-13] MEDS ORDERED: Albumin Human 25% 50 GM/200 ML BTL IV ONE (09:08)
[2021-01-13] MEDS ORDERED: Vancomycin 1,000 MG in NS 0.9% 250 ml 250 ML IVPB ONE (09:53)
[2021-01-13] MEDS ORDERED: metroNIDAZOLE IV 500 MG/100ML 500 MG/100 ML BAG IVPB SCH (10:00)
[2021-01-13] MEDS ORDERED: Albumin Human 25% 25 GM/100 ML BTL IV SCH (11:00)
[2021-01-13] MEDS ORDERED: Phytonadione IV (Adult) 10 MG in NS 0.9% 50 ML 50 ML IV ONE (11:22)
[2021-01-13] MEDS ORDERED: Cefepime 1 GM in Dextrose 1 G/50 ML BAG IV SCH (12:00)
[2021-01-13] MEDS ORDERED: Cefepime ADVAN 1 GM in NS 0.9% 50 ML 50 ML IVPB SCH (12:00)
[2021-01-13] MEDS ORDERED: Prochlorperazine 5 mg/ml 2 ml VIAL (10 mg) IV PRN ×2 (15:54→20:18)
[2021-01-13] MEDS ORDERED: Lidocaine 1% VIAL 10 MG/ML VIAL ONE (17:10)
[2021-01-13] MEDS ORDERED: Ondansetron 4 mg VIAL 2 MG/ML 2 ml VIAL ONE (17:23)
[2021-01-13] MEDS ORDERED: Lidocaine 1% VIAL 10 MG/ML VIAL INJ ONE (17:34)
[2021-01-13] MEDS ORDERED: Ondansetron 4 mg VIAL 2 MG/ML 2 ml VIAL IV ONE (17:37)
[2021-01-13] MEDS ORDERED: Furosemide 20 mg/2 ml IV VIAL IV ONE ×2 (18:02→22:30)
[2021-01-13] MEDS ORDERED: Albuterol/Ipratropium NEB.SOL (2.5/0.5 MG) 3 ML NEB.SOLN INH PRN (18:03)
[2021-01-13] MEDS ORDERED: Desmopressin Acetate 20 MCG in NS 0.9% 50 ML 50 ML IVPB ONE (19:30)
[2021-01-13] MEDS ORDERED: Metoclopramide 5 MG/ML VIAL (10 mg) IV PRN (19:34)
[2021-01-13] MEDS ORDERED: Metoclopramide 5 MG/ML VIAL (10 mg) ONE ×2 (19:34→23:52)
[2021-01-13] MEDS: HYDROmorphone 0.5 MG/0.5 ML SYRINGE IV SLOW PU PRN (20:55)
[2021-01-13 21:22] LABS: Alcohol, S < 13 mg/dL (<10)
[2021-01-13 21:24] LABS: INR 1.97 (0.86-1.15)
[2021-01-13 21:28] LABS: Hematocrit 12 % (35-47); Hemoglobin 3.9 g/dL (12.0-16.0); Mean Corpuscular HGB Conc 33 g/dL (31-36); Mean Corpuscular Hemoglobin 33 pg (27-31); Mean Corpuscular Volume 98 fL (80-97); Platelet Count 29 10^3/uL (150-450); Red Cell Distribution Width 21 % (10-15); White Blood Count 11.9 10^3/uL (3.5-10.8)
[2021-01-13 21:38] LABS: Albumin 2.9 g/dL (3.2-5.2); Albumin/Globulin Ratio 1.8 (1-3); Calcium 7.5 mg/dL (8.6-10.3); Direct Bilirubin 2.3 mg/dL (0.03-0.18); EGFR African American 13.5 (>60); EGFR Non-African American 11.2 (>60); Globulin 1.6 g/dL (2-4); Indirect Bilirubin 2.3 mg/dL (0.3-1.0); Potassium 4.5 mmol/L (3.5-5.0); Total Bilirubin 4.6 mg/dL (0.2-1.0); Total Protein 4.5 g/dL (6.4-8.9)
[2021-01-13 22:00] LABS: Burr Cells 3+
[2021-01-13 22:03] LABS: ABS Eosinophils 0.1 10^3/ul (0-0.6); ABS Lymphocytes 0.6 10^3/ul (1.0-4.8); ABS Monocytes 0.9 10^3/ul (0-0.8); ABS Neutrophils 10.4 10^3/ul (1.5-7.7); ABS Nucleated RBC 0.2 10^3/ul; Eosinophil % 1.1 %; Lymphocyte % 4.8 %; Nucleated Red Blood Cells % 1.4
[2021-01-13 22:04] LABS: Alcohol, S < 13 mg/dL (<10)
[2021-01-13 22:04] LABS: Hypochromasia 1+
[2021-01-13] MEDS: Dextrose 50% Syringe 50 ml 25 GM/50 ML SYRINGE IV PUSH PRN (22:28)
[2021-01-13] MEDS ORDERED: HYDROmorphone 1 MG/1 ML SYRINGE ONE (22:42)
[2021-01-13] MEDS ORDERED: Vasopressin 100 UNITS in D5W 250 ML BAG IV SCH (23:00)
[2021-01-13] MEDS ORDERED: Furosemide 20 mg/2 ml IV VIAL ONE ×2 (23:19→23:50)
[2021-01-14 00:09] LABS: Mean Platelet Volume 7.8 fL (7.4-10.4); Platelet Count 20 10^3/uL (150-450)
[2021-01-14] MEDS ORDERED: Metoclopramide 5 MG/ML VIAL (10 mg) IV ONE (00:21)
[2021-01-14] MEDS ORDERED: HYDROmorphone 1 MG/1 ML SYRINGE IV SLOW PU ONE ×2 (00:24→00:54)
[2021-01-14 00:51] LABS: Hematocrit 25 % (35-47); Hemoglobin 8.2 g/dL (12.0-16.0); Mean Corpuscular HGB Conc 32 g/dL (31-36); Mean Corpuscular Hemoglobin 32 pg (27-31); Mean Corpuscular Volume 98 fL (80-97); Mean Platelet Volume 8.6 fL (7.4-10.4); Platelet Count 18 10^3/uL (150-450); Red Blood Count 2.57 10^6 /uL (3.70-4.87); Red Cell Distribution Width 16 % (10-15)
[2021-01-14 00:52] LABS: Body Fluid Appearance Clear; Body Fluid Color Yellow; Body Fluid Source Peritonial Fluid
[2021-01-14] MEDS ORDERED: Furosemide 40 mg/4 ml IV VIAL IV ONE (01:00)
[2021-01-14] MEDS ORDERED: Lactulose 300 ML for PR 200 GM/300 ML BTL PR ONE ×2 (01:03→09:30)
[2021-01-14] MEDS ORDERED: Succinylcholine 200 mg VIAL 20 mg/ml 10 ml VIAL (200 mg) ONE (01:28)
[2021-01-14] MEDS ORDERED: Rocuronium 50 mg VIAL 10 mg/ml 5 ml VIAL (50 mg) ONE (01:29)
[2021-01-14] MEDS ORDERED: Etomidate 40 mg/20 ml (2 MG/ML) 20 ml VIAL (40 mg) ONE (01:42)
[2021-01-14] MEDS: fentaNYL INFUSION 50 mcg/mL VL 2,500 MCG/50 ML VIAL IV SCH (02:18)
[2021-01-14 02:33] LABS: PCO2 Arterial 25 mmHg (35-45); PO2 Arterial 87 mmHg (80-100)
[2021-01-14 02:38] LABS: Body Fluid WBC 64 /mcL
[2021-01-14] MEDS ORDERED: Bumetanide IV 0.25 MG/ML 4 ml VIAL (1 mg) SLOW PUSH ONE (03:00)
[2021-01-14 03:51] LABS: Body Fluid Band 1 %; Body Fluid Mono 21 %; Body Fluid NRBC 2; Body Fluid Other Cells 14; Body Fluid Total Cells Counted 200
[2021-01-14 03:53] LABS: ABS Basophils 0.1 10^3/ul (0-0.2); ABS Eosinophils 0.1 10^3/ul (0-0.6); ABS Lymphocytes 0.5 10^3/ul (1.0-4.8); ABS Monocytes 0.8 10^3/ul (0-0.8); ABS Neutrophils 11.6 10^3/ul (1.5-7.7); ABS Nucleated RBC 0.3 10^3/ul; Eosinophil % 0.5 %; Lymphocyte % 3.5 %; Nucleated Red Blood Cells % 2.4
[2021-01-14] MEDS: Lactulose 30 ml UDC PO SCH ×4 (04:13→20:36)
[2021-01-14 05:08] LABS: ABS Eosinophils 0.1 10^3/ul (0-0.6); ABS Lymphocytes 0.2 10^3/ul (1.0-4.8); ABS Monocytes 0.8 10^3/ul (0-0.8); ABS Neutrophils 12.4 10^3/ul (1.5-7.7); ABS Nucleated RBC 0.4 10^3/ul; Eosinophil % 0.4 %; Hematocrit 29 % (35-47); Hemoglobin 9.7 g/dL (12.0-16.0); Lymphocyte % 1.5 %; Mean Corpuscular HGB Conc 34 g/dL (31-36); Mean Corpuscular Hemoglobin 32 pg (27-31); Mean Corpuscular Volume 96 fL (80-97); Mean Platelet Volume 7.8 fL (7.4-10.4); Nucleated Red Blood Cells % 2.9; Platelet Count 60 10^3/uL (150-450); Red Blood Count 2.99 10^6 /uL (3.70-4.87); Red Cell Distribution Width 15 % (10-15); White Blood Count 13.5 10^3/uL (3.5-10.8)
[2021-01-14 05:21] LABS: INR 1.92 (0.86-1.15)
[2021-01-14 05:26] LABS: Albumin 2.8 g/dL (3.2-5.2); Albumin/Globulin Ratio 1.9 (1-3); Calcium 7.3 mg/dL (8.6-10.3); EGFR African American 14.4 (>60); EGFR Non-African American 11.9 (>60); Globulin 1.5 g/dL (2-4); Magnesium 3.1 mg/dL (1.9-2.7); Phosphorus 8.8 mg/dL (2.5-5.0); Potassium 4.5 mmol/L (3.5-5.0); Total Bilirubin 6.3 mg/dL (0.2-1.0); Total Protein 4.3 g/dL (6.4-8.9)
[2021-01-14] MEDS ORDERED: Vancomycin Random Level NOTE FOLLOW UP ONE (06:00)
[2021-01-14] MEDS: Octreotide Acetate 500 MCG in NS 0.9% 100 ML IV SCH ×3 (06:06→17:10)
[2021-01-14] MEDS: Chlorhexidine MOUTHWASH 0.12% 15 ML UDC TOPICAL SCH ×5 (06:35→20:36)
[2021-01-14] MEDS: metroNIDAZOLE IV 500 MG/100ML 500 MG/100 ML BAG IVPB SCH ×2 (06:35→16:31)
[2021-01-14] MEDS: Norepinephrine *QUAD STRENGTH* 16 mg/250 mL NS per protocol IV SCH ×3 (07:18→21:09)
[2021-01-14] MEDS: Pantoprazole VIAL 40 MG VIAL IV SCH ×2 (08:18→20:36)
[2021-01-14] MEDS: HYDROmorphone 0.5 MG/0.5 ML SYRINGE IV SLOW PU PRN (08:29)
[2021-01-14] MEDS ORDERED: Lorazepam PYXIS KEY ONE (10:10)
[2021-01-14] MEDS ORDERED: LORazepam 2 mg VIAL 1 ml ONE (10:12)
[2021-01-14 12:22] LABS: ALT 14 U/L (7-52); AST 25 U/L (13-39); Albumin 2.7 g/dL (3.2-5.2); Albumin/Globulin Ratio 1.8 (1-3); Alkaline Phosphatase 97 U/L (35-149); Blood Urea Nitrogen 60 mg/dL (6-24); Calcium 7.6 mg/dL (8.6-10.3); Chloride 104 mmol/L (101-111); EGFR African American 14.1 (>60); EGFR Non-African American 11.7 (>60); Globulin 1.5 g/dL (2-4); Glucose 57 mg/dL (70-100); Potassium 4.6 mmol/L (3.5-5.0); Sodium 128 mmol/L (135-145); Total Protein 4.2 g/dL (6.4-8.9)
[2021-01-14 12:25] LABS: Anion Gap 11 mmol/L (2-11); CO2 Carbon Dioxide 13 mmol/L (22-32); Troponin I 0.05 ng/mL (<0.03)
[2021-01-14 12:28] LABS: ABS Eosinophils 0.2 10^3/ul (0-0.6); ABS Lymphocytes 0.7 10^3/ul (1.0-4.8); ABS Monocytes 1.3 10^3/ul (0-0.8); ABS Nucleated RBC 0.4 10^3/ul; Eosinophil % 1.2 %; Hematocrit 28 % (35-47); Hemoglobin 9.6 g/dL (12.0-16.0); Lymphocyte % 5.2 %; Mean Corpuscular HGB Conc 34 g/dL (31-36); Mean Corpuscular Hemoglobin 33 pg (27-31); Mean Corpuscular Volume 95 fL (80-97); Mean Platelet Volume 8.2 fL (7.4-10.4); Nucleated Red Blood Cells % 2.7; Platelet Count 49 10^3/uL (150-450); Red Blood Count 2.96 10^6 /uL (3.70-4.87); Red Cell Distribution Width 15 % (10-15); White Blood Count 13.1 10^3/uL (3.5-10.8)
[2021-01-14 14:19] LABS: Lactate Dehydrogenase, BF 37 U/L
[2021-01-14 15:02] LABS: Fluid Type, Protein, Total PERITONEAL FLUID; Total Protein, BF 0.2 g/dL
[2021-01-14 15:14] LABS: Glucose, BF 84 mg/dL
[2021-01-14 15:34] LABS: Albumin, BF <0.3 g/dL; Fluid Type, Albumin PERITONEAL FLUID
[2021-01-14] MEDS: Cefepime 1 GM in Dextrose 1 G/50 ML BAG IV SCH (16:01)
[2021-01-14] MEDS ORDERED: Vancomycin 500 MG in NS 0.9% 250 ML IVPB ONE (18:00)
[2021-01-14 18:09] LABS: Blood Urea Nitrogen 56 mg/dL (6-24); Calcium 7.6 mg/dL (8.6-10.3); Chloride 105 mmol/L (101-111); EGFR African American 13.4 (>60); Glucose 54 mg/dL (70-100); Potassium 4.6 mmol/L (3.5-5.0); Sodium 130 mmol/L (135-145)
[2021-01-14 18:11] LABS: Anion Gap 13 mmol/L (2-11); CO2 Carbon Dioxide 12 mmol/L (22-32)
[2021-01-14 18:12] LABS: Troponin I 0.04 ng/mL (<0.03)
[2021-01-14 19:19] LABS: ABS Basophils 0.1 10^3/ul (0-0.2); ABS Eosinophils 0.2 10^3/ul (0-0.6); ABS Lymphocytes 0.7 10^3/ul (1.0-4.8); ABS Monocytes 1.6 10^3/ul (0-0.8); ABS Neutrophils 11.3 10^3/ul (1.5-7.7); ABS Nucleated RBC 0.4 10^3/ul; Burr Cells 2+; Eosinophil % 1.2 %; Hematocrit 29 % (35-47); Hemoglobin 9.7 g/dL (12.0-16.0); Lymphocyte % 5.2 %; Mean Corpuscular HGB Conc 34 g/dL (31-36); Mean Corpuscular Hemoglobin 32 pg (27-31); Mean Corpuscular Volume 95 fL (80-97); Mean Platelet Volume 8.3 fL (7.4-10.4); Nucleated Red Blood Cells % 2.6; Platelet Count 44 10^3/uL (150-450); Red Blood Count 3.03 10^6 /uL (3.70-4.87); Red Cell Distribution Width 16 % (10-15); White Blood Count 13.8 10^3/uL (3.5-10.8)
[2021-01-14 19:20] LABS: Anisocytosis 2+; Schistocytes 1+
[2021-01-15] MEDS: Chlorhexidine MOUTHWASH 0.12% 15 ML UDC TOPICAL SCH ×6 (03:06→20:48)
[2021-01-15] MEDS: Norepinephrine *QUAD STRENGTH* 16 mg/250 mL NS per protocol IV SCH ×3 (04:16→17:54)
[2021-01-15 04:50] LABS: ABS Eosinophils 0.2 10^3/ul (0-0.6); ABS Lymphocytes 0.7 10^3/ul (1.0-4.8); ABS Monocytes 1.6 10^3/ul (0-0.8); ABS Neutrophils 13.1 10^3/ul (1.5-7.7); ABS Nucleated RBC 0.3 10^3/ul; Eosinophil % 1.1 %; Hematocrit 30 % (35-47); Hemoglobin 9.9 g/dL (12.0-16.0); Lymphocyte % 4.2 %; Mean Corpuscular HGB Conc 33 g/dL (31-36); Mean Corpuscular Hemoglobin 32 pg (27-31); Mean Corpuscular Volume 95 fL (80-97); Mean Platelet Volume 8.1 fL (7.4-10.4); Nucleated Red Blood Cells % 1.8; Platelet Count 39 10^3/uL (150-450); Red Blood Count 3.12 10^6 /uL (3.70-4.87); Red Cell Distribution Width 16 % (10-15); White Blood Count 15.5 10^3/uL (3.5-10.8)
[2021-01-15 04:52] LABS: INR 2.27 (0.86-1.15)
[2021-01-15 05:00] LABS: Albumin 2.7 g/dL (3.2-5.2); Albumin/Globulin Ratio 1.6 (1-3); Calcium 7.8 mg/dL (8.6-10.3); EGFR African American 12.8 (>60); EGFR Non-African American 10.6 (>60); Globulin 1.7 g/dL (2-4); Magnesium 3.3 mg/dL (1.9-2.7); Phosphorus 8.5 mg/dL (2.5-5.0); Potassium 4.7 mmol/L (3.5-5.0); Total Protein 4.4 g/dL (6.4-8.9)
[2021-01-15 05:09] LABS: Vancomycin Random 23.6 mcg/mL
[2021-01-15] MEDS: Dextrose 50% Syringe 50 ml 25 GM/50 ML SYRINGE IV PUSH PRN (05:09)
[2021-01-15] MEDS: Octreotide Acetate 500 MCG in NS 0.9% 100 ML IV SCH ×2 (05:14→16:11)
[2021-01-15] MEDS: metroNIDAZOLE IV 500 MG/100ML 500 MG/100 ML BAG IVPB SCH ×2 (05:51→18:39)
[2021-01-15] MEDS ORDERED: Vancomycin Random Level NOTE FOLLOW UP ONE (06:00)
[2021-01-15] MEDS: Pantoprazole VIAL 40 MG VIAL IV SCH ×2 (09:07→20:48)
[2021-01-15] MEDS: Lactulose 30 ml UDC PO SCH ×3 (09:07→20:49)
[2021-01-15 11:00] LABS: Hematocrit 27 % (35-47); Hemoglobin 9.3 g/dL (12.0-16.0)
[2021-01-15] MEDS: fentaNYL INFUSION 50 mcg/mL VL 2,500 MCG/50 ML VIAL IV SCH (11:55)
[2021-01-15] MEDS: Cefepime 1 GM in Dextrose 1 G/50 ML BAG IV SCH (17:54)
[2021-01-16] MEDS: Norepinephrine *QUAD STRENGTH* 16 mg/250 mL NS per protocol IV SCH ×2 (00:39→07:37)
[2021-01-16] MEDS: Octreotide Acetate 500 MCG in NS 0.9% 100 ML IV SCH ×2 (00:44→10:39)
[2021-01-16] MEDS: Chlorhexidine MOUTHWASH 0.12% 15 ML UDC TOPICAL SCH ×4 (02:07→14:15)
[2021-01-16] MEDS: metroNIDAZOLE IV 500 MG/100ML 500 MG/100 ML BAG IVPB SCH (05:48)
[2021-01-16] MEDS: Lactulose 30 ml UDC PO SCH ×2 (09:38→14:16)
[2021-01-16] MEDS: Pantoprazole VIAL 40 MG VIAL IV SCH (09:38)
[2021-01-16] MEDS ORDERED: Morphine 2 MG/ML SYRINGE IV PRN (13:56)
[2021-01-16] MEDS ORDERED: Lorazepam PYXIS KEY PRN (13:57)
[2021-01-16] MEDS: LORazepam 2 mg VIAL 1 ml IV PUSH PRN (14:20)
[2021-01-16] MEDS ORDERED: Glycopyrrolate IV 0.2 MG/ML 20 ML VIAL IV SLOW PU PRN (16:12)
[2021-01-16] MEDS ORDERED: Glycopyrrolate IV 0.2 MG/ML 1 ML VIAL IV SLOW PU PRN (17:00)
[2021-01-17] MEDS: Atropine 1% (ORAL/SL) 15 ML BTL SL PRN ×4 (01:58→12:44)
[2021-01-17 09:17] VITALS: BP 49/22
[2021-01-17] MEDS: LORazepam 2 mg VIAL 1 ml IV PUSH PRN (12:42)
== END 2021-01-17 21:26 | disposition expired | DRG 720 ==
LOC: ED 11:31 → ICU 15:33
PROVIDERS: ADMIT Student in an Organized Health Care Education/Training Program; ATTEND Internal Medicine